=== PATIENT | female | born 1940 | race Caucasian/White ===

== ENCOUNTER 2021-11-25 11:58 | Inpatient (IN) | payer MEDICARE, SELFPAY ==
--- NOTE | ~2021-11-25 | CT_ITS ---
EXAMINATION: CT HEAD WITHOUT CONTRAST CLINICAL INFORMATION: Mental status change. Medical clearance. COMPARISON: None TECHNIQUE: Contiguous axial imaging was performed from the skull base to vertex without intravenous administration of contrast. This CT examination was performed using dose optimization techniques as appropriate, variously including the following: *Automated exposure control *Adjustment of mA and/or kV according to patient size (this includes techniques or standardized protocols for targeted exams where dose is matched to indication/reason for exam; i.e. extremities or head) *Use of iterative reconstruction technique DLP: 616 mGy-cm FINDINGS: There is no evidence of acute intracranial hemorrhage or territorial infarction. No abnormal mass effect or midline shift is appreciated. Anne-white differentiation is well preserved. No extra-axial fluid collections. The ventricular system and cortical sulci are prominent, consistent with age-appropriate volume loss. There are areas of low density in the periventricular and subcortical white matter, most consistent with sequelae of microvascular ischemic change. The osseous structures and soft tissues are normal. There are calcifications of the cavernous internal carotid arteries. The visualized paranasal sinuses and mastoid air cells are well aerated. Mild mucosal thickening of a few a few scattered ethmoidal air cells. CT/CT head/brain wo IV con IMPRESSION: Chronic microvascular ischemic changes with no CT evidence of acute intracranial abnormality.
--- NOTE | ~2021-11-25 | XR_ITS ---
EXAMINATION: XR CHEST CLINICAL INFORMATION: Medical clearance COMPARISON: None TECHNIQUE: Frontal view of the chest was obtained. FINDINGS: Lungs appear hyperinflated. Heart size is normal. No evidence of CHF. Pleural parenchymal scarring is present in both upper lobes. Coarse reticulonodular markings are seen bilaterally most prominent in the upper lobes. No focal consolidations are seen. No pleural effusions are seen. XR/XR chest 1V IMPRESSION: No acute intrathoracic disease. The chest radiograph is abnormal. There is probable COPD and possible interstitial disease. Unfortunately, no prior imaging is available for comparison.
[2021-11-25 13:09] VITALS: BP 144/82; PULSE 74; RESP 18; TEMP 36.7; O2SAT 97; BMI 17.8
--- NOTE | 2021-11-25 15:30 | ECG_ITS ---
Test Reason : MED CLEARANCE Blood Pressure : / mmHG Vent. Rate : 061 BPM Atrial Rate : 061 BPM P-R Int : 150 ms QRS Dur : 096 ms QT Int : 402 ms P-R-T Axes : 069 062 047 degrees QTc Int : 404 ms Normal sinus rhythm Possible Left atrial enlargement Left ventricular hypertrophy ( Sokolow-Vang , Romhilt-Cutler ) Nonspecific ST abnormality Abnormal ECG No previous ECGs available Referred By: Otoniel Yates Electronically Signed By:KAILEE ADAMS
--- NOTE | 2021-11-25 15:31 | ED_ITS ---
HPI - Psych General Chief Complaint: Psychiatric Symptoms Stated Complaint: Psych eval Time Seen by Provider: 11/25/21 15:29 Source: patient and family (Daughter, Mellissa) Mode of arrival: ambulatory Limitations: no limitations History of Present Illness HPI Narrative: 80-year-old female who presents emergency department for evaluation of severe depression. The patient states that she has been severely depressed for approximately 6 months. According to her daughter, the depression got worse after are the patient lost some of her friends. The patient had been taking Lexapro for her depression and anxiety and was a concerned that his medications stops working. This was continued in the patient was placed on Cymbalta which made the patient feel worse. The patient was started back on Lexapro proximally 1 month prior and her provider recently prescribed Abilify as well pain. The patient has been taking Xanax to help her sleep and help with her anxiety. The patient states that she has lost her appetite and has lost approximately 20 lb over the last several months. The patient had a workup for her loss of appetite which included an upper GI and colonoscopy without any clear cause. Patient then had a CT scan of the abdomen pelvis and an ultrasound on 10/05/2021 which revealed a left complex adnexal mass 5.8 x [address] Hendrix who was at [facility] however the patient has been to anxious in order to get a biopsy of this mass. Patient states that she has lost interest in things that she usually enjoys such as reading. She has had difficulty sleeping is had to taking Xanax at night to help her sleep. She states she wakes up she does not feel rested. The daughter states that patient is very fearful and they cannot leave her alone. The patient does have racing thoughts and she does think about hurting herself but states she is too afraid to actually hurt herself. The patient states that she came to [facility] for evaluation treatment of her depression since we have an inpatient geriatric psychiatric unit. Patient also states that she had COVID-19 approximately 11 days prior and her symptoms have resolved. complaint: feels depressed Onset (ago): month(s) (6) Duration: constant History of same: Yes Relieving factors: none Exacerbating factors: none Context: new medication(s) and significant life stressor Associated psychiatric symptoms: racing thoughts Associated symptoms: insomnia and other (Loss of appetite with 20 lb weight loss) Treatments prior to arrival: none Related Data Allergies Allergy/AdvReac Type Severity Reaction Status Date / Time amoxicillin Allergy Rash Verified 11/25/21 13:08 Review of Systems Review of Systems: Yes all other systems are reviewed and are negative [facility] Past Medical History [facility] Narrative: Past medical history: Depression, anxiety, left complex ovarian mass diagnosed 10/05/[address] scan. COVID-19 11/14/2021. Past surgical history: Skin cancer removal. Social history: Social History Social History Advance Directives: Yes Advance Directives Information Provided: No Advance Directives on File: No Physical Exam Vital Signs: Vital Signs: Last Vital Signs Temp 98.1 F 11/25/21 13:09 Pulse 74 11/25/21 13:09 Resp 18 11/25/21 13:09 BP 144/82 H 11/25/21 13:09 Pulse Ox 97 11/25/21 13:09 O2 Del Method 11/25/21 13:09 BMI result Body Mass Index 17.8 Course Course Course Narrative: 80-year-old female who presents emergency department for evaluation of severe depression x6 months triggered by the loss of several of her friends as well as medication changes. Patient's symptoms include insomnia, tired, not enjoying things that she usually enjoys, loss of appetite a 20 lb weight loss. The patient did have a medical workup for her weight loss and the workup did reveal a 5.8 x 4.0 cm complex left adnexal mass which, according to her daughter, the patient has not been able to go through a biopsy secondary to her anxiety and depression. Patient has also been taking Xanax at night and during the day to help with sleep and her anxiety. Patient is having racing thoughts and does have some suicidal thoughts but states that she would not act on them because she is too afraid. Patient's vital signs were normal. The patient's physical examination was unremarkable. I did order a CBC, CMP, COVID-19, CPK, drug screen, alcohol level, lipase, acetaminophen, salicylate, TSH with free T4 and urinalysis. Patient was ordered to get Xanax 0.25 mg orally. 1703: At the end of my shift, the patient's laboratory evaluation is pending, therefore I turned the patient's care over to my colleague, Dr. Awad [facility] - Psych Lab Data Labs: Lab Results 11/25/21 11/25/21 11/25/21 Range/Units 15:37 15:37 15:37 Urine Color Yellow Urine Appearance Clear Urine pH 6.5 (5.0-9.0) Ur Specific [place] <= 1.005 (1.005-1.025) Urine Protein Negative (Neg-Trace) mg/dL Urine Glucose (UA) Negative (Negative) mg/dL Urine Ketones Negative (Negative) mg/dL Urine Blood Negative (Negative) Urine Nitrite Negative (Negative) Ur Leukocyte Esterase Large (3+) H (Negative) Urine RBC 0-2 (0-2) /HPF Urine WBC 11-20 (0-5) /HPF Ur Squamous Epith Cells 0-2 (0-2) /HPF Urine Bacteria 4+ (None Seen) Hyaline Casts 0-2 (0-2) /LPF Urine Opiates Screen Not Detected (Not Detect) Urine Fentanyl Screen Not Detected (Not Detect) Ur Barbiturates Screen Not Detected (Not Detect) Ur Phencyclidine Scrn Not Detected (Not Detect) Ur Amphetamines Screen Not Detected (Not Detect) U Benzodiazepines Scrn POSITIVE H (Not Detect) Urine Cocaine Screen Not Detected (Not Detect) U Marijuana (THC) Screen Not Detected (Not Detect) COVID-19 (ALCIRA) Negative (Negative) COVID-19 Clin Com See Note Discharge Plan Discharge Clinical Impression: Depression, Anxiety, Abnormal weight loss, Insomnia, Adnexal mass Patient Disposition: Still a Patient
[2021-11-25 15:49] LABS: Appearance Urine Clear; Color Urine Yellow; Glucose Urine UA Negative (Negative); Leukocyte Esterase Urine Large (3+) (Negative); Nitrite Urine Negative (Negative); PH 6.5 (5.0-9.0); Specific Gravity - Urine <= 1.005 (1.005-1.025); Urine Blood Negative (Negative); Urine Ketones Negative (Negative); Urine Protein Negative (Neg-Trace)
[2021-11-25 16:00] LABS: Amphetamine Screen Urine Not Detected (Not Detect); Barbiturates, Urine Not Detected (Not Detect); Benzodiazepines Screen Urine POSITIVE (Not Detect); Cannabinoid Screen Urine Not Detected (Not Detect); Cocaine Screen Urine Not Detected (Not Detect); Fentanyl, urine Not Detected (Not Detect); Opiate Screen Urine Not Detected (Not Detect); Phencyclidine Screen Urine Not Detected (Not Detect)
[2021-11-25 16:02] LABS: COVID-19 Test Negative (Negative); IDNOW Serial# 16C4AD1C
[2021-11-25] MEDS: ALPRAZolam 0.25 MG TABLET PO ×2 (16:16→23:41)
[2021-11-25 16:28] LABS: Bacteria Urine 4+ (None Seen); Hyaline Casts Urine 0-2 /LPF (0-2); RBC Urine 0-2 /HPF (0-2); Squamous Epithelial Cell Urine 0-2 /HPF (0-2); UACC Culture Trigger YES
[2021-11-25 17:16] LABS: MANUAL DIFF FLAG NO
[2021-11-25 17:19] LABS: Basophils Percent Auto 0.5 % (0-2); Eosinophils Absolute Auto 0.1 X10*3/uL (0.0-0.4); Hematocrit 39.8 % (37.0-47.0); Hemoglobin 13.2 g/dl (12.0-16.0); Imm Gran Abs Auto 0.02 X10*3/uL (0.00-0.03); Imm Gran Pct Auto 0.3 % (0.0-0.4); Lymphocytes Absolute Auto 1.1 X10*3/uL (1.2-4.9); Lymphocytes Percent Auto 18.5 % (20-40); Mean Corpuscular HGB Conc 33.2 g/dl (31.0-35.0); Mean Corpuscular Hemoglobin 30.1 pg (27.0-33.0); Mean Corpuscular Volume 90.9 fL (80.0-98.0); Mean Platelet Volume 9.5 fL (9.4-12.3); Monocytes Absolute Auto 0.5 X10*3/uL (0.1-1.2); Monocytes Percent Auto 8.8 % (2-11); Neutrophils Absolute Auto 4.4 x10*3/uL (2.0-8.3); Neutrophils Percent Auto 70.9 % (45-73); Platelet Count 288 X10*3/uL (160-400); Red Blood Count 4.38 X10*6/uL (4.20-5.50); Red Cell Distribution Width 13.5 % (11.0-16.0); White Blood Count 6.2 X10*3/uL (4.8-10.8)
[2021-11-25 17:40] LABS: Acetaminophen LAB < 1 mcg/mL (<30); Alanine Aminotransferase 11 U/L (0-31); Alkaline Phosphatase 59 U/L (39-117); Anion Gap 16 (12-20); Aspartate Amino Transferase 18 U/L (5-31); Bilirubin Total 0.5 mg/dL (0.0-1.0); Blood Urea Nitrogen 11 mg/dL (9-16); Calcium 9.2 mg/dL (8.4-10.2); Carbon Dioxide 29 mmol/L (22-29); Chloride 101 mmol/L (96-108); Estimated Glomerular Filt Rate > 60; Ethanol < 10 mg/dL; Glucose Random 90 mg/dL (60-115); Lipase 32 U/L (8-78); Potassium 4.8 mmol/L (3.3-5.1); Salicylate < 5.0 mg/dL (15-30); Sodium 141 mmol/L (135-145); Total Protein 6.8 g/dL (6.5-8.0)
[2021-11-25 18:00] LABS: TSH reflex Free T4 1.03 uIU/mL (0.32-4.0)
--- NOTE | 2021-11-25 21:54 | PC.ADMIT ---
Patient is a 80 year old female. A & Ox4. Presented to S1 at 20:11 on a CV from [facility] ED POD. Upon arrival BP is elevated at 182/85 with a HR of 62. Patient presented after a recommendation from outpatient provider to be assessed by care team. For the last 6 months patient has been decompensating with increased anxiety, depression, and intrusive thoughts. Reported that she has been stable on lexapro for the last 14 years, however it is no longer effective. Patient reports a recent weight loss of about 20 pounds. Patient reports that she has been sleeping with 0.5 mg of xanax each night. Patient currently denies SI/HI/AH/VH. Reports feeling safe. Ambualtes independently with a steady gait. Patient denies acute complaints at this time.
[2021-11-25 22:02] VITALS: BP 182/85; PULSE 62; RESP 17; TEMP 36.7; O2SAT 98
[2021-11-26 06:00] VITALS: BP 141/71; PULSE 76; RESP 17; TEMP 37.1; O2SAT 95
[2021-11-26 07:00] VITALS: BMI 17.4
[2021-11-26] MEDS: ALPRAZolam 0.25 MG TABLET PO ×2 (09:46→14:12)
[2021-11-26 10:52] LABS: Alanine Aminotransferase 12 U/L (0-31); Alkaline Phosphatase 61 U/L (39-117); Anion Gap 15 (12-20); Aspartate Amino Transferase 18 U/L (5-31); Bilirubin Total 0.6 mg/dL (0.0-1.0); Blood Urea Nitrogen 8 mg/dL (9-16); Calcium 9.3 mg/dL (8.4-10.2); Carbon Dioxide 29 mmol/L (22-29); Chloride 100 mmol/L (96-108); Cholesterol 216 mg/dL; Estimated Glomerular Filt Rate > 60; Glucose Fasting 103 mg/dL (60-99); HDL Cholesterol 54 mg/dL; LDL Cholesterol Calculated 151 mg/dl; Potassium 4.2 mmol/L (3.3-5.1); Sodium 140 mmol/L (135-145); Triglycerides 59 mg/dL
[2021-11-26 11:37] LABS: Folate 12.2 ng/mL (> or = 4.0); Vitamin B12 < 146 pg/mL (200-900)
--- NOTE | 2021-11-26 12:14 | P.HPPS_ITS ---
[facility] Date of Service: 11/26/21 Chief Complaint: Severe Depression Sources of Information: patient interviewed, chart reviewed and crisis/core team assessment reviewed Additional Sources of Information: Regular prescriber Dr. 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 The patient carries a diagnosis of major depressive disorder for several years and she has been on Lexapro for more than 14 years with good results but in the last 6 months, after several losses, the of a friend and other psychosocial stressors, she reported an exacerbation of depressive symptoms elicited by depressed mood, anhedonia, lack of energy and neurovegetative symptoms such as weight loss and poor appetite, she lost 20 lb in the last 6 months and poor sleep. She denies psychotic symptoms, no evidence of mood lability or per your episodes of philip. The patient reported that initially her outpatient provider changed from Lexapro to Cymbalta and she got worse symptoms. She was admitted to the emergency room since her provider wanted to try ECT. During the interview, the patient was very scared about ECT I explained her that she does not need to be intubated for the procedure. There were no suicidal ideation at this moment and no acute safety concerns. Past Psychiatric History: Never admitted into the [facility], she has been followed outpatient services most of her life she was fairly well on Lexapro for more than 14 years. She had a bad reaction with Cymbalta with no efficacy in worsening of depression. Medical Evaluation Reviewed: Hospitalist Tricia Pending [facility] Family History: Most of her maternal aunts and mother probably had mood symptoms, mostly anxiety and depression. Social History: The patient is the youngest of 2 siblings, her milestones were achieved at expected patient she was raised by her parents. 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 She was , her a few years ago, and she had tree adult children. She has good social support. Substance History: Denies, she admits that she drinks 2 beers every night after dinner but no history of the way you or any other substance abuse. Trauma History: Denies Diagnostics Vital Signs (24Hr): Vital Signs - 24 hr 11/25/21 13:09 11/25/21 22:02 11/26/21 06:00 Temperature 98.1 F 98.0 F 98.7 F Pulse Rate 74 62 76 Respiratory Rate 18 17 17 Blood Pressure 144/82 H 182/85 H 141/71 H Pulse Oximetry 97 98 95 Oxygen Delivery Method Room Air Room Air Room Air BMI result Body Mass Index 17.8 Labs Results: 11/25/21 17:05 11/26/21 10:29 Labs: Laboratory Results - last 48 hr 11/25/21 11/25/21 11/25/21 15:37 15:37 15:37 WBC RBC Hgb Hct MCV MCH MCHC RDW Plt Count MPV Immature Gran % (Auto) Neut % (Auto) Lymph % (Auto) [place] % (Auto) Eos % (Auto) Baso % (Auto) Lymph # (Auto) [place] # (Auto) Eos # (Auto) Baso # (Auto) Abs Immat Gran (auto) Absolute Neuts (auto) Absolute Nucleated RBC Nucleated RBC % (auto) Sodium Potassium Chloride Carbon Dioxide Anion Gap BUN Creatinine Estim Creat Clear Calc Estimated GFR Random Glucose Fasting Glucose Calcium Total Bilirubin AST ALT Alkaline Phosphatase Total Creatine Kinase Total Protein Albumin Triglycerides Cholesterol LDL Cholesterol, Calc HDL Cholesterol Lipase Vitamin B12 Folate TSH Urine Color Yellow Urine Appearance Clear Urine pH 6.5 Ur Specific [place] <= 1.005 Urine Protein Negative Urine Glucose (UA) Negative Urine Ketones Negative Urine Blood Negative Urine Nitrite Negative Ur Leukocyte Esterase Large (3+) H Urine RBC 0-2 Urine WBC 11-20 Ur Squamous Epith Cells 0-2 Urine Bacteria 4+ Hyaline Casts 0-2 Salicylates Urine Opiates Screen Not Detected Urine Fentanyl Screen Not Detected Acetaminophen Ur Barbiturates Screen Not Detected Ur Phencyclidine Scrn Not Detected Ur Amphetamines Screen Not Detected U Benzodiazepines Scrn POSITIVE H Urine Cocaine Screen Not Detected U Marijuana (THC) Screen Not Detected Ethyl Alcohol COVID-19 (ALCIRA) Negative COVID-19 Clin Com See Note 11/25/21 11/25/21 11/25/21 17:05 17:05 17:05 WBC 6.2 RBC 4.38 Hgb 13.2 Hct 39.8 MCV 90.9 MCH 30.1 MCHC 33.2 RDW 13.5 Plt Count 288 MPV 9.5 Immature Gran % (Auto) 0.3 Neut % (Auto) 70.9 Lymph % (Auto) 18.5 L [place] % (Auto) 8.8 Eos % (Auto) 1.0 Baso % (Auto) 0.5 Lymph # (Auto) 1.1 L [place] # (Auto) 0.5 Eos # (Auto) 0.1 Baso # (Auto) 0.0 Abs Immat Gran (auto) 0.02 Absolute Neuts (auto) 4.4 Absolute Nucleated RBC 0.000 Nucleated RBC % (auto) 0.0 Sodium 141 Potassium 4.8 Chloride 101 Carbon Dioxide 29 Anion Gap 16 BUN 11 Creatinine 0.70 Estim Creat Clear Calc 53.0 Estimated GFR > 60 Random Glucose 90 Fasting Glucose Calcium 9.2 Total Bilirubin 0.5 AST 18 ALT 11 Alkaline Phosphatase 59 Total Creatine Kinase 51 Total Protein 6.8 Albumin 4.0 Triglycerides Cholesterol LDL Cholesterol, Calc HDL Cholesterol Lipase 32 Vitamin B12 Folate TSH 1.03 Urine Color Urine Appearance Urine pH Ur Specific [place] Urine Protein Urine Glucose (UA) Urine Ketones Urine Blood Urine Nitrite Ur Leukocyte Esterase Urine RBC Urine WBC Ur Squamous Epith Cells Urine Bacteria Hyaline Casts Salicylates < 5.0 L Urine Opiates Screen Urine Fentanyl Screen Acetaminophen < 1 Ur Barbiturates Screen Ur Phencyclidine Scrn Ur Amphetamines Screen U Benzodiazepines Scrn Urine Cocaine Screen U Marijuana (THC) Screen Ethyl Alcohol < 10 COVID-19 (ALCIRA) COVID-19 Clin Com 11/26/21 11/26/21 10:29 10:29 WBC RBC Hgb Hct MCV MCH MCHC RDW Plt Count MPV Immature Gran % (Auto) Neut % (Auto) Lymph % (Auto) [place] % (Auto) Eos % (Auto) Baso % (Auto) Lymph # (Auto) [place] # (Auto) Eos # (Auto) Baso # (Auto) Abs Immat Gran (auto) Absolute Neuts (auto) Absolute Nucleated RBC Nucleated RBC % (auto) Sodium 140 Potassium 4.2 Chloride 100 Carbon Dioxide 29 Anion Gap 15 BUN 8 L Creatinine 0.70 Estim Creat Clear Calc 53.0 Estimated GFR > 60 Random Glucose Fasting Glucose 103 H Calcium 9.3 Total Bilirubin 0.6 AST 18 ALT 12 Alkaline Phosphatase 61 Total Creatine Kinase Total Protein 7.0 Albumin 4.0 Triglycerides 59 Cholesterol 216 LDL Cholesterol, Calc 151 HDL Cholesterol 54 Lipase Vitamin B12 < 146 L Folate 12.2 TSH Urine Color Urine Appearance Urine pH Ur Specific [place] Urine Protein Urine Glucose (UA) Urine Ketones Urine Blood Urine Nitrite Ur Leukocyte Esterase Urine RBC Urine WBC Ur Squamous Epith Cells Urine Bacteria Hyaline Casts Salicylates Urine Opiates Screen Urine Fentanyl Screen Acetaminophen Ur Barbiturates Screen Ur Phencyclidine Scrn Ur Amphetamines Screen U Benzodiazepines Scrn Urine Cocaine Screen U Marijuana (THC) Screen Ethyl Alcohol COVID-19 (ALCIRA) COVID-19 Clin Com Imaging Radiology Impressions: ITS Impressions Chest X-Ray 11/25/21 17:49 IMPRESSION: No acute intrathoracic disease. The chest radiograph is abnormal. There is probable COPD and possible interstitial disease. Unfortunately, no prior imaging is available for comparison. Head CT 11/25/21 18:02 IMPRESSION: Chronic microvascular ischemic changes with no CT evidence of acute intracranial abnormality. Meds/Allergies Meds Home Medications Medication Instructions Recorded Confirmed Type Xanax 0.125 mg PO NEEDED PRN Insomnia 11/26/21 11/26/21 History Xanax 0.25 mg PO BEDTIME insomnia 11/26/21 11/26/21 History Allergies Allergies Allergy/AdvReac Type Severity Reaction Status Date / Time amoxicillin Allergy Rash Verified 11/25/21 13:08 Mental Status Exam Mental Status Exam Patient Appearance: Well Grooomed Patient Orientation: Person, Place, Time and Situation Level of Consciousness: Awake Patient Behavior: Cooperative Mood Description: Calm Affect Description: Constricted Patient Cognition Impaired: No Ability to Follow Directions: Good Speech Pattern: Clear Hallucinations: None Delusions: Not Present Thought Process: Intact Thought Content: positive for Intact and positive for Circumstantial Judgement: Fair Assessment & Plan Assessment & Plan (1) Major depressive disorder: Status: Acute Code(s): F32.9 - Major depressive disorder, single episode, unspecified Plan The patient is an elderly female with a long history of depression who was highly functional but in the last 6 months relapsed on depressive symptoms with neurovegetative symptoms. The patient was transferred to this facility for the possibility of ECT treatment. Plan 1. Gather collateral information. 2. Continue Lexapro 20 mg p.o. daily and Xanax. 3. Offered ECT and psychoeducation. Patient educated on: diagnosis, ECT and therapeutic strategies Informed Consent: understands Reason for continued inpatient stay Substantial Risk for: inability to function, rapid decompensation and med/psych decompensation
[2021-11-26 13:54] VITALS: BMI 17.8
--- NOTE | 2021-11-26 13:57 | MHC.CLN ---
RE: CONSULT PT IS UNDER WT FOR HT PT WITH 15% SIGNIFICANT WT LOSS X 6 MONTHS R/T SEVERE DEPRESSION SX AND DECOMPENSATION DIET RX: REGULAR-APPROPRIATE RECOMMEND ADDING ENSURE BID TO INCREASE KCALS SUPP TO PROVIDE 700KCALS, 40G PROTEIN MONITOR PO INTAKE CLOSELY AND WEEKLY WEIGHTS SEE ALSO FULL CLINICAL NUTRITION ASSESSMENT
[2021-11-26] MEDS: Escitalopram Oxalate 20 MG TABLET PO (14:12)
--- NOTE | 2021-11-26 15:40 | P.CONIM_ITS ---
History of Present Illness Data of Consult Service Date: 11/26/21 Primary Care Provider: Rizwana Tripp MD HPI Reason for consult: Depression A 80 years old lady with PMH of GERD, anxiety, depression who presents to the hospital for Anusha psych admission for measures depression and anorexia. The patient reports the her depression has been controlled until 6 months ago with multiple stressors arising like of a friend and concerns over possible ovarian cancer among others. She reports that she has been losing weight steadily with no appetite. Denies any fever, chills, chest pain, palpitation, shortness of breath, nausea or vomiting or change in bowel habit. Upon evaluation at [facility] CT scan and ultrasound of the pelvic area were consistent with 5 x 6 x 3 left adnexal mass that was evaluated by gynecology oncologist. Surgery was suggested. Hospitalist team were asked to evaluate the patient for clearance of ECT procedure. Review of Systems Review of Systems: No fever, chills or weakness No chest pain, palpitation No shortness of breath or coughing Decreased appetite, No abdominal pain, nausea or vomiting No urinary symptoms No any rash or wounds PMFSH Medical History (Updated 11/26/21 @ 15:40 by Laney Gorman MD) Anxiety Insomnia Major depressive disorder Social History Household Members: None Housing: Apartment Do you presently have visiting nurse or other home services: No Patient Tobacco Use Status: Never used Tobacco Use of substances other than those prescribed or required for medical reasons: No Currently Displaying Signs/Symptoms of Drug Intoxication Withdrawal: No Have you been hit, kicked, punched, or otherwise hurt by someone within the past year? If so, by whom?: No Do you feel safe in your current relationship?: No Current Relationship Is there a partner from a previous relationship who is making you feel unsafe now?: No Are you made to feel afraid or neglected: No Advance Directives: Yes Advance Directives Information Provided: No Advance Directives on File: No Healthcare Proxy: No Guardian: No Do you have thoughts of harming others: None Do you have a plan to hurt others: No Plan Recently lost weight without trying: Yes How much weight loss: 14-23 pounds Eating poorly because of decreased appetite: Yes Nutrition screen score: 5 Nutrition Risks: Anorexia Patient : No : No Poor oral hygiene: No Meds Allergies Allergy/AdvReac Type Severity Reaction Status Date / Time amoxicillin Allergy Rash Verified 11/25/21 13:08 Active Medications: Current Medications Acetaminophen (Acetaminophen 325 Mg Tablet) 650 mg PO Q6H PRN PRN Reason: Headache/Pain Mild Scale (1-3) Al Hydroxide/Mg Hydroxide (Magnesium Hydrox/Alum Hydrox 30 Ml Oral.Susp) 30 ml PO Q6H PRN PRN Reason: Heartburn/Nausea Alprazolam (Alprazolam 0.25 Mg Tablet) 0.125 mg PO Q6H PRN PRN Reason: Anxiety Alprazolam (Alprazolam 0.5 Mg Tablet) 0.5 mg PO BEDTIME ROBBY Alprazolam (Alprazolam 0.25 Mg Tablet) 0.25 mg PO BID@0830,1330 [facility] Last Admin: 11/26/21 14:12 Dose: 0.25 mg Escitalopram Oxalate (Escitalopram Oxalate 20 Mg Tablet) 20 mg PO DAILY ROBBY Hydroxyzine HCl (Hydroxyzine Hcl 25 Mg Tablet) 25 mg PO Q6H PRN PRN Reason: Anxiety Magnesium Hydroxide (Milk Of Magnesia 30 Ml Oral.Susp) 30 ml PO DAILY PRN PRN Reason: Constipation Trazodone HCl (Trazodone Hcl 50 Mg Tablet) 50 mg PO BEDTIME PRN PRN Reason: Insomnia Home Medications Medication Instructions Recorded Confirmed Last Taken Type Xanax 0.125 mg PO NEEDED PRN Insomnia 11/26/21 11/26/21 Unknown History Xanax 0.25 mg PO BEDTIME insomnia 11/26/21 11/26/21 11/25/21 History 0.25 mg Physical Exam Vital Signs and Narrative: Vital Signs: Last Vital Signs Temp 98.7 F 11/26/21 06:00 Pulse 76 11/26/21 06:00 Resp 17 11/26/21 06:00 BP 141/71 H 11/26/21 06:00 Pulse Ox 95 11/26/21 06:00 O2 Del Method 11/26/21 06:00 BMI result Body Mass Index 17.8 Const: Other: Constitutional : Alert, interactive, not in distress Neck : Normal inspection, Supple Cardiovascular : RRR, no JVP, no lower extremity edema Respiratory : fair bilateral air entry, no crackles, wheezes or rhonchi Gastrointestinal: soft, lax, Normal bowel sounds, Non tender Skin : Warm, Dry Neurological : Alert & oriented x3, No focal deficit , CN 2-12 within normal Results Labs CBC and Chem 7: 11/25/21 17:05 11/26/21 10:29 Labs: Laboratory Results - last 24 hr 11/25/21 11/25/21 11/25/21 15:37 15:37 15:37 MCV MCH MCHC RDW Plt Count MPV Immature Gran % (Auto) Neut % (Auto) Lymph % (Auto) [place] % (Auto) Eos % (Auto) Baso % (Auto) Lymph # (Auto) [place] # (Auto) Eos # (Auto) Baso # (Auto) Abs Immat Gran (auto) Absolute Neuts (auto) Absolute Nucleated RBC Nucleated RBC % (auto) Anion Gap Estim Creat Clear Calc Estimated GFR Random Glucose Fasting Glucose Calcium Total Bilirubin AST ALT Alkaline Phosphatase Total Creatine Kinase Total Protein Albumin Triglycerides Cholesterol LDL Cholesterol, Calc HDL Cholesterol Lipase Vitamin B12 Folate TSH Urine Color Yellow Urine Appearance Clear Urine pH 6.5 Ur Specific [place] <= 1.005 Urine Protein Negative Urine Glucose (UA) Negative Urine Ketones Negative Urine Blood Negative Urine Nitrite Negative Ur Leukocyte Esterase Large (3+) H Urine RBC 0-2 Urine WBC 11-20 Ur Squamous Epith Cells 0-2 Urine Bacteria 4+ Hyaline Casts 0-2 Salicylates Urine Opiates Screen Not Detected Urine Fentanyl Screen Not Detected Acetaminophen Ur Barbiturates Screen Not Detected Ur Phencyclidine Scrn Not Detected Ur Amphetamines Screen Not Detected U Benzodiazepines Scrn POSITIVE H Urine Cocaine Screen Not Detected U Marijuana (THC) Screen Not Detected Ethyl Alcohol COVID-19 ([facility]) Negative COVID-19 Clin Com See Note 11/25/21 11/25/21 11/25/21 17:05 17:05 17:05 MCV 90.9 MCH 30.1 MCHC 33.2 RDW 13.5 Plt Count 288 MPV 9.5 Immature Gran % (Auto) 0.3 Neut % (Auto) 70.9 Lymph % (Auto) 18.5 L [place] % (Auto) 8.8 Eos % (Auto) 1.0 Baso % (Auto) 0.5 Lymph # (Auto) 1.1 L [place] # (Auto) 0.5 Eos # (Auto) 0.1 Baso # (Auto) 0.0 Abs Immat Gran (auto) 0.02 Absolute Neuts (auto) 4.4 Absolute Nucleated RBC 0.000 Nucleated RBC % (auto) 0.0 Anion Gap 16 Estim Creat Clear Calc 53.0 Estimated GFR > 60 Random Glucose 90 Fasting Glucose Calcium 9.2 Total Bilirubin 0.5 AST 18 ALT 11 Alkaline Phosphatase 59 Total Creatine Kinase 51 Total Protein 6.8 Albumin 4.0 Triglycerides Cholesterol LDL Cholesterol, Calc HDL Cholesterol Lipase 32 Vitamin B12 Folate TSH 1.03 Urine Color Urine Appearance Urine pH Ur Specific [place] Urine Protein Urine Glucose (UA) Urine Ketones Urine Blood Urine Nitrite Ur Leukocyte Esterase Urine RBC Urine WBC Ur Squamous Epith Cells Urine Bacteria Hyaline Casts Salicylates < 5.0 L Urine Opiates Screen Urine Fentanyl Screen Acetaminophen < 1 Ur Barbiturates Screen Ur Phencyclidine Scrn Ur Amphetamines Screen U Benzodiazepines Scrn Urine Cocaine Screen U Marijuana (THC) Screen Ethyl Alcohol < 10 COVID-19 ([facility]) COVID-19 [employer] 11/26/21 11/26/21 10:29 10:29 MCV MCH MCHC RDW Plt Count MPV Immature Gran % (Auto) Neut % (Auto) Lymph % (Auto) [place] % (Auto) Eos % (Auto) Baso % (Auto) Lymph # (Auto) [place] # (Auto) Eos # (Auto) Baso # (Auto) Abs Immat Gran (auto) Absolute Neuts (auto) Absolute Nucleated RBC Nucleated RBC % (auto) Anion Gap 15 Estim Creat Clear Calc 53.0 Estimated GFR > 60 Random Glucose Fasting Glucose 103 H Calcium 9.3 Total Bilirubin 0.6 AST 18 ALT 12 Alkaline Phosphatase 61 Total Creatine Kinase Total Protein 7.0 Albumin 4.0 Triglycerides 59 Cholesterol 216 LDL Cholesterol, Calc 151 HDL Cholesterol 54 Lipase Vitamin B12 < 146 L Folate 12.2 TSH Urine Color Urine Appearance Urine pH Ur Specific [place] Urine Protein Urine Glucose (UA) Urine Ketones Urine Blood Urine Nitrite Ur Leukocyte Esterase Urine RBC Urine WBC Ur Squamous Epith Cells Urine Bacteria Hyaline Casts Salicylates Urine Opiates Screen Urine Fentanyl Screen Acetaminophen Ur Barbiturates Screen Ur Phencyclidine Scrn Ur Amphetamines Screen U Benzodiazepines Scrn Urine Cocaine Screen U Marijuana (THC) Screen Ethyl Alcohol COVID-19 ([facility]) COVID-19 Clin Com Imaging Radiologist's Impressions: Impressions Chest X-Ray 11/25/21 17:49 IMPRESSION: No acute intrathoracic disease. The chest radiograph is abnormal. There is probable COPD and possible interstitial disease. Unfortunately, no prior imaging is available for comparison. Head CT 11/25/21 18:02 IMPRESSION: Chronic microvascular ischemic changes with no CT evidence of acute intracranial abnormality. Assessment and Plan (1) Adnexal mass: Status: Acute (2) Abnormal weight loss: Status: Acute (3) Major depressive disorder: Status: Acute Plan A 80 years old lady with PMH of GERD, anxiety, depression who presents to the hospital for Anusha psych admission for measures depression and anorexia. Abnormal weight loss Likely secondary to major depressive disorder Evidence of adnexal mass with possible malignancy could be contributing to anorexia Treatment per Psychiatry team EKG was reviewed, no abnormality Patient had recent echo with EF of 55-60% Patient has no contraindications for ECT procedure as directed by Psychiatry team Adnexal mass Reported on 10/05/2021 on ultrasound Patient had discussion with gynecology Oncology team and a seeking a 2nd opinion No additional tests inpatient Thank you for the consult, please contact hospitalist team for any further questions.
[2021-11-26 18:00] VITALS: BP 157/74; PULSE 76; RESP 18; TEMP 36.4; O2SAT 96
[2021-11-26] MEDS: Famotidine 20 MG TABLET PO (20:04)
[2021-11-26] MEDS: ALPRAZolam 0.5 MG TABLET PO (21:39)
[2021-11-27 06:00] VITALS: BP 128/63; PULSE 72; RESP 17; TEMP 36.7; O2SAT 95
[2021-11-27] MEDS: Famotidine 20 MG TABLET PO ×2 (08:23→18:08)
[2021-11-27] MEDS: Escitalopram Oxalate 20 MG TABLET PO (08:23)
[2021-11-27] MEDS: ALPRAZolam 0.25 MG TABLET PO ×2 (08:23→15:58)
--- NOTE | 2021-11-27 10:24 | HO.PSYCHPN ---
Subjective Subjective Date of Service: 11/27/21 Reason For Visit: Severe Depression Subjective Notes: Conditional Voluntary Interim History: The nursing staff reported the patient slept well she denies pain. The staff has reported that the patient and the family has been anxious, the relatives have expectations such as intense psychotherapy and one-to-one observation. Today we have an family meeting and will discuss treatment. The recent of the admission was to do ECT as per her outpatient provider, psychotic occasionally into this treatment will be provided. Mental Status Exam Mental Status Exam Patient Appearance: Well Grooomed Patient Orientation: Person and Situation Level of Consciousness: Awake Patient Behavior: Cooperative Mood Description: Constricted Affect Description: Calm Patient Cognition Impaired: Yes Ability to Follow Directions: Good Speech Pattern: Clear Hallucinations: None Delusions: Not Present Thought Process: Distracted Thought Content: positive for Circumstantial Judgement: Fair Diagnostics Vital Signs (24Hr): Vital Signs - 24 hr 11/26/21 18:00 Temperature 97.6 F Pulse Rate 76 Respiratory Rate 18 Blood Pressure 157/74 H Pulse Oximetry 96 Oxygen Delivery Method Room Air BMI result Body Mass Index 17.8 Labs Results: 11/25/21 17:05 11/26/21 10:29 Labs: Laboratory Results - last 48 hr 11/25/21 11/25/21 11/25/21 15:37 15:37 15:37 WBC RBC Hgb Hct MCV MCH MCHC RDW Plt Count MPV Immature Gran % (Auto) Neut % (Auto) Lymph % (Auto) [place] % (Auto) Eos % (Auto) Baso % (Auto) Lymph # (Auto) [place] # (Auto) Eos # (Auto) Baso # (Auto) Abs Immat Gran (auto) Absolute Neuts (auto) Absolute Nucleated RBC Nucleated RBC % (auto) Sodium Potassium Chloride Carbon Dioxide Anion Gap BUN Creatinine Estim Creat Clear Calc Estimated GFR Random Glucose Fasting Glucose Calcium Total Bilirubin AST ALT Alkaline Phosphatase Total Creatine Kinase Total Protein Albumin Triglycerides Cholesterol LDL Cholesterol, Calc HDL Cholesterol Lipase Vitamin B12 Folate TSH Urine Color Yellow Urine Appearance Clear Urine pH 6.5 Ur Specific [place] <= 1.005 Urine Protein Negative Urine Glucose (UA) Negative Urine Ketones Negative Urine Blood Negative Urine Nitrite Negative Ur Leukocyte Esterase Large (3+) H Urine RBC 0-2 Urine WBC 11-20 Ur Squamous Epith Cells 0-2 Urine Bacteria 4+ Hyaline Casts 0-2 Salicylates Urine Opiates Screen Not Detected Urine Fentanyl Screen Not Detected Acetaminophen Ur Barbiturates Screen Not Detected Ur Phencyclidine Scrn Not Detected Ur Amphetamines Screen Not Detected U Benzodiazepines Scrn POSITIVE H Urine Cocaine Screen Not Detected U Marijuana (THC) Screen Not Detected Ethyl Alcohol COVID-19 ([facility]IR[facility]) Negative COVID-19 Clin Com See Note 11/25/21 11/25/21 11/25/21 17:05 17:05 17:05 WBC 6.2 RBC 4.38 Hgb 13.2 Hct 39.8 MCV 90.9 MCH 30.1 MCHC 33.2 RDW 13.5 Plt Count 288 MPV 9.5 Immature Gran % (Auto) 0.3 Neut % (Auto) 70.9 Lymph % (Auto) 18.5 L [place] % (Auto) 8.8 Eos % (Auto) 1.0 Baso % (Auto) 0.5 Lymph # (Auto) 1.1 L [place] # (Auto) 0.5 Eos # (Auto) 0.1 Baso # (Auto) 0.0 Abs Immat Gran (auto) 0.02 Absolute Neuts (auto) 4.4 Absolute Nucleated RBC 0.000 Nucleated RBC % (auto) 0.0 Sodium 141 Potassium 4.8 Chloride 101 Carbon Dioxide 29 Anion Gap 16 BUN 11 Creatinine 0.70 Estim Creat Clear Calc 53.0 Estimated GFR > 60 Random Glucose 90 Fasting Glucose Calcium 9.2 Total Bilirubin 0.5 AST 18 ALT 11 Alkaline Phosphatase 59 Total Creatine Kinase 51 Total Protein 6.8 Albumin 4.0 Triglycerides Cholesterol LDL Cholesterol, Calc HDL Cholesterol Lipase 32 Vitamin B12 Folate TSH 1.03 Urine Color Urine Appearance Urine pH Ur Specific [place] Urine Protein Urine Glucose (UA) Urine Ketones Urine Blood Urine Nitrite Ur Leukocyte Esterase Urine RBC Urine WBC Ur Squamous Epith Cells Urine Bacteria Hyaline Casts Salicylates < 5.0 L Urine Opiates Screen Urine Fentanyl Screen Acetaminophen < 1 Ur Barbiturates Screen Ur Phencyclidine Scrn Ur Amphetamines Screen U Benzodiazepines Scrn Urine Cocaine Screen U Marijuana (THC) Screen Ethyl Alcohol < 10 COVID-19 ([facility]) COVID-19 Clin Com 11/26/21 11/26/21 10:29 10:29 WBC RBC Hgb Hct MCV MCH MCHC RDW Plt Count MPV Immature Gran % (Auto) Neut % (Auto) Lymph % (Auto) [place] % (Auto) Eos % (Auto) Baso % (Auto) Lymph # (Auto) [place] # (Auto) Eos # (Auto) Baso # (Auto) Abs Immat Gran (auto) Absolute Neuts (auto) Absolute Nucleated RBC Nucleated RBC % (auto) Sodium 140 Potassium 4.2 Chloride 100 Carbon Dioxide 29 Anion Gap 15 BUN 8 L Creatinine 0.70 Estim Creat Clear Calc 53.0 Estimated GFR > 60 Random Glucose Fasting Glucose 103 H Calcium 9.3 Total Bilirubin 0.6 AST 18 ALT 12 Alkaline Phosphatase 61 Total Creatine Kinase Total Protein 7.0 Albumin 4.0 Triglycerides 59 Cholesterol 216 LDL Cholesterol, Calc 151 HDL Cholesterol 54 Lipase Vitamin B12 < 146 L Folate 12.2 TSH Urine Color Urine Appearance Urine pH Ur Specific [place] Urine Protein Urine Glucose (UA) Urine Ketones Urine Blood Urine Nitrite Ur Leukocyte Esterase Urine RBC Urine WBC Ur Squamous Epith Cells Urine Bacteria Hyaline Casts Salicylates Urine Opiates Screen Urine Fentanyl Screen Acetaminophen Ur Barbiturates Screen Ur Phencyclidine Scrn Ur Amphetamines Screen U Benzodiazepines Scrn Urine Cocaine Screen U Marijuana (THC) Screen Ethyl Alcohol COVID-19 ([facility]) COVID-19 Clin Com Imaging Radiology Impressions: ITS Impressions Chest X-Ray 11/25/21 17:49 IMPRESSION: No acute intrathoracic disease. The chest radiograph is abnormal. There is probable COPD and possible interstitial disease. Unfortunately, no prior imaging is available for comparison. Head CT 11/25/21 18:02 IMPRESSION: Chronic microvascular ischemic changes with no CT evidence of acute intracranial abnormality. Medications Medications Current Medications Acetaminophen (Acetaminophen 325 Mg Tablet) 650 mg PO Q6H PRN PRN Reason: Headache/Pain Mild Scale (1-3) Al Hydroxide/Mg Hydroxide (Magnesium Hydrox/Alum Hydrox 30 Ml Oral.Susp) 30 ml PO Q6H PRN PRN Reason: Heartburn/Nausea Alprazolam (Alprazolam 0.25 Mg Tablet) 0.125 mg PO Q6H PRN PRN Reason: Anxiety Alprazolam (Alprazolam 0.5 Mg Tablet) 0.5 mg PO BEDTIME [facility] Last Admin: 11/26/21 21:39 Dose: 0.5 mg Alprazolam (Alprazolam 0.25 Mg Tablet) 0.25 mg PO BID@0830,1330 [facility] Last Admin: 11/27/21 08:23 Dose: 0.25 mg Escitalopram Oxalate (Escitalopram Oxalate 20 Mg Tablet) 20 mg PO DAILY [facility] Last Admin: 11/27/21 08:23 Dose: 20 mg Famotidine (Famotidine 20 Mg Tablet) 20 mg PO BID [facility] Last Admin: 11/27/21 08:23 Dose: 20 mg Hydroxyzine HCl (Hydroxyzine Hcl 25 Mg Tablet) 25 mg PO Q6H PRN PRN Reason: Anxiety Magnesium Hydroxide (Milk Of Magnesia 30 Ml Oral.Susp) 30 ml PO DAILY PRN PRN Reason: Constipation Trazodone HCl (Trazodone Hcl 50 Mg Tablet) 50 mg PO BEDTIME PRN PRN Reason: Insomnia Allergies Allergies Allergy/AdvReac Type Severity Reaction Status Date / Time amoxicillin Allergy Rash Verified 11/25/21 13:08 Assessment & Plan Assessment & Plan (1) Adnexal mass: Status: Acute Code(s): N94.89 - Other specified conditions associated with female genital organs and menstrual cycle (2) Abnormal weight loss: Status: Acute Code(s): R63.4 - Abnormal weight loss (3) Major depressive disorder: Status: Acute Code(s): F32.9 - Major depressive disorder, single episode, unspecified Plan A 80 years old lady with PMH of GERD, anxiety, depression who presents to the hospital for Anusha psych admission for measures depression and anorexia. Abnormal weight loss Likely secondary to major depressive disorder Evidence of adnexal mass with possible malignancy could be contributing to anorexia Treatment per Psychiatry team EKG was reviewed, no abnormality Patient had recent echo with EF of 55-60% Patient has no contraindications for ECT procedure as directed by Psychiatry team Adnexal mass Reported on 10/05/2021 on ultrasound Patient had discussion with gynecology Oncology team and a seeking a 2nd opinion No additional tests inpatient Thank you for the consult, please contact hospitalist team for any further questions. I spent __20____ minutes with the patient and/or on the patient floor today, greater than?50% of which was spent counseling/coordinating care. Patient educated on: diagnosis, ECT and therapeutic strategies Informed Consent: understands Reason for contiued inpatient stay Substantial Risk for: inability to function, rapid decompensation and med/psych decompensation
--- NOTE | 2021-11-27 14:41 | MHC.CLN ---
F/U VISITED WITH PATIENT WHILE EATING LUNCH. REPORTS ABOUT 30# WEIGHT LOSS X ONE YEAR, WITH MAJORITY OF WEIGHT LOSS IN PAST 6 MONTHS. APPEARS THIN AND STATES THAT SHE DOES NOT USUALLY EAT A LOT. FAMILY BROUGHT SUPPLY OF ENSURE MOCHA FLAVOR. USUALLY TAKES ONE PER DAY. PATIENT TRIED ENSURE CLEAR AND LIKED. WILL SEND ENSURE CLEAR BID. PROVIDES 480 KCALS, 16 G PROTEIN.
[2021-11-27 18:00] VITALS: BP 136/65; PULSE 94; RESP 17; O2SAT 98
[2021-11-27] MEDS: ALPRAZolam 0.5 MG TABLET PO (22:05)
[2021-11-27 22:40] VITALS: BP 136/65; PULSE 94; RESP 16; O2SAT 98
[2021-11-28 08:00] VITALS: BP 121/58; PULSE 72; RESP 16; TEMP 36.9; O2SAT 96
[2021-11-28] MEDS: Famotidine 20 MG TABLET PO (08:18)
[2021-11-28] MEDS: ALPRAZolam 0.25 MG TABLET PO ×2 (09:20→15:03)
[2021-11-28] MEDS: Escitalopram Oxalate 20 MG TABLET PO (09:20)
--- NOTE | 2021-11-28 11:55 | P.PNPSI_ITS ---
Subjective Subjective Date of Service: 11/28/21 Reason For Visit: Severe Depression with marked anxiety Subjective Notes: Conditional Voluntary Interim History: Patient seen case reviewed with patient chart reviewed. Patient referred for ECT consideration by Dr. Gloria mena patient's outpatient psychiatrist. Patient had history of good response to Lexapro for many years eventually this became less effective. Patient has been increasingly depressed anxious feeling quite overwhelmed by issues related to medication quite obsessional patient convinced she developed colitis secondary to Cymbalta. She is scheduled for ECT Medication Compliance: Yes Mental Status Exam Mental Status Exam Patient Appearance: Well Grooomed Patient Orientation: Person and Situation Level of Consciousness: Awake Patient Behavior: Cooperative Mood Description: Constricted and Apprehensive Affect Description: Apprehensive Patient Cognition Impaired: No Ability to Follow Directions: Good Speech Pattern: Clear Hallucinations: None Delusions: Not Present Thought Process: Distracted and Rumination Thought Content: positive for Circumstantial, negative for Suicidal Ideation or negative for Homicidal Ideation Depressive Symptoms: Increased Anxiety, Increased Irritability and Hopelessness Judgement: Fair Diagnostics Vital Signs (24Hr): Vital Signs - 24 hr 11/27/21 18:00 11/27/21 22:40 Pulse Rate 94 94 Respiratory Rate 17 16 Blood Pressure 136/65 136/65 Pulse Oximetry 98 98 Oxygen Delivery Method Room Air Room Air BMI result Body Mass Index 17.8 Labs Results: 11/25/21 17:05 11/26/21 10:29 Imaging Radiology Impressions: ITS Impressions Chest X-Ray 11/25/21 17:49 IMPRESSION: No acute intrathoracic disease. The chest radiograph is abnormal. There is probable COPD and possible interstitial disease. Unfortunately, no prior imaging is available for comparison. Head CT 11/25/21 18:02 IMPRESSION: Chronic microvascular ischemic changes with no CT evidence of acute intracranial abnormality. Medications Medications Current Medications Acetaminophen (Acetaminophen 325 Mg Tablet) 650 mg PO Q6H PRN PRN Reason: Headache/Pain Mild Scale (1-3) Al Hydroxide/Mg Hydroxide (Magnesium Hydrox/Alum Hydrox 30 Ml Oral.Susp) 30 ml PO Q6H PRN PRN Reason: Heartburn/Nausea Alprazolam (Alprazolam 0.25 Mg Tablet) 0.125 mg PO Q6H PRN PRN Reason: Anxiety Alprazolam (Alprazolam 0.5 Mg Tablet) 0.5 mg PO BEDTIME ROBBY Last Admin: 11/27/21 22:05 Dose: 0.5 mg Alprazolam (Alprazolam 0.25 Mg Tablet) 0.25 mg PO BID@0830,1330 [facility] Last Admin: 11/28/21 09:20 Dose: 0.25 mg Escitalopram Oxalate (Escitalopram Oxalate 20 Mg Tablet) 20 mg PO DAILY [facility] Last Admin: 11/28/21 09:20 Dose: 20 mg Famotidine (Famotidine 20 Mg Tablet) 20 mg PO BID [facility] Last Admin: 11/28/21 08:18 Dose: 20 mg Hydroxyzine HCl (Hydroxyzine Hcl 25 Mg Tablet) 25 mg PO Q6H PRN PRN Reason: Anxiety Magnesium Hydroxide (Milk Of Magnesia 30 Ml Oral.Susp) 30 ml PO DAILY PRN PRN Reason: Constipation Trazodone HCl (Trazodone Hcl 50 Mg Tablet) 50 mg PO BEDTIME PRN PRN Reason: Insomnia Allergies Allergies Allergy/AdvReac Type Severity Reaction Status Date / Time amoxicillin Allergy Rash Verified 11/25/21 13:08 Assessment & Plan Assessment & Plan (1) Adnexal mass: Status: Acute Code(s): N94.89 - Other specified conditions associated with female genital organs and menstrual cycle (2) Abnormal weight loss: Status: Acute Code(s): R63.4 - Abnormal weight loss (3) Major depressive disorder: Status: Acute Code(s): F32.9 - Major depressive disorder, single episode, unspecified Assessment and Plan: Patient with history of generalized anxiety worsening depression particularly over the past number of weeks. Has left adnexal mass that will eventually need surgery. Reviewed treatment options reviewed issues related to ECT procedure Plan A 80 years old lady with PMH of GERD, anxiety, depression who presents to the hospital for Anusha psych admission for measures depression and anorexia. Abnormal weight loss Likely secondary to major depressive disorder Evidence of adnexal mass with possible malignancy could be contributing to anorexia Treatment per Psychiatry team EKG was reviewed, no abnormality Patient had recent echo with EF of 55-60% Patient has no contraindications for ECT procedure as directed by Psychiatry team Adnexal mass Reported on 10/05/2021 on ultrasound Patient had discussion with gynecology Oncology team and a seeking a 2nd opinion No additional tests inpatient Thank you for the consult, please contact hospitalist team for any further questions. I spent minutes with the patient and/or on the patient floor today, greater than?50% of which was spent counseling/coordinating care. Patient educated on: diagnosis, medication risk/benefits and ECT Reason for contiued inpatient stay Substantial Risk for: inability to function and rapid decompensation
[2021-11-28 18:00] VITALS: BP 144/67; PULSE 60; RESP 17; TEMP 36.8; O2SAT 96
[2021-11-28] MEDS: ALPRAZolam 0.5 MG TABLET PO (21:32)
[2021-11-29 08:00] VITALS: BP 121/68; PULSE 82; RESP 16; TEMP 36.4; O2SAT 93
[2021-11-29] MEDS: Famotidine 20 MG TABLET PO ×2 (08:05→17:52)
[2021-11-29] MEDS: Escitalopram Oxalate 20 MG TABLET PO (08:48)
[2021-11-29] MEDS: ALPRAZolam 0.25 MG TABLET PO ×2 (08:48→15:18)
--- NOTE | 2021-11-29 16:03 | HO.PSYCHPN ---
Subjective Subjective Date of Service: 11/29/21 Reason For Visit: Severe Depression with marked anxiety Subjective Notes: Conditional Voluntary Interim History: Patient has depressed anxious and ruminating. Needs much support in Education regarding ECT. Spoke with Dr. Benny dinh and re elucidated reasons while patient would benefit from ECT at this time. This includes acute medical issues that she cannot manage at this time to her depression weight loss increasing hopelessness helplessness despondency and inability to manage outpatient medication trials in adequate manner. Medication Compliance: Yes Review of Systems Medical Review of Systems: unchanged Mental Status Exam Mental Status Exam Patient Appearance: Well Grooomed Patient Orientation: Person and Situation Level of Consciousness: Awake Patient Behavior: Cooperative Mood Description: Constricted and Apprehensive Affect Description: Apprehensive Patient Cognition Impaired: No Ability to Follow Directions: Good Speech Pattern: Clear Hallucinations: None Delusions: Not Present Thought Process: Distracted and Rumination Thought Content: positive for Circumstantial, negative for Suicidal Ideation or negative for Homicidal Ideation Depressive Symptoms: Increased Anxiety, Increased Irritability, Loss of Int. in Activity, Hopelessness, Thoughts of /Suicide and Difficulty Concentrating Judgement: Fair Diagnostics Vital Signs (24Hr): Vital Signs - 24 hr 11/28/21 18:00 11/29/21 08:00 Temperature 98.3 F 97.6 F Pulse Rate 60 82 Respiratory Rate 17 16 Blood Pressure 144/67 H 121/68 Pulse Oximetry 96 93 Oxygen Delivery Method Room Air Room Air BMI result Body Mass Index 17.8 Labs Results: 11/25/21 17:05 11/26/21 10:29 Imaging Radiology Impressions: ITS Impressions Chest X-Ray 11/25/21 17:49 IMPRESSION: No acute intrathoracic disease. The chest radiograph is abnormal. There is probable COPD and possible interstitial disease. Unfortunately, no prior imaging is available for comparison. Head CT 11/25/21 18:02 IMPRESSION: Chronic microvascular ischemic changes with no CT evidence of acute intracranial abnormality. Medications Medications Current Medications Acetaminophen (Acetaminophen 325 Mg Tablet) 650 mg PO Q6H PRN PRN Reason: Headache/Pain Mild Scale (1-3) Al Hydroxide/Mg Hydroxide (Magnesium Hydrox/Alum Hydrox 30 Ml Oral.Susp) 30 ml PO Q6H PRN PRN Reason: Heartburn/Nausea Alprazolam (Alprazolam 0.25 Mg Tablet) 0.125 mg PO Q6H PRN PRN Reason: Anxiety Alprazolam (Alprazolam 0.5 Mg Tablet) 0.5 mg PO BEDTIME [facility] Last Admin: 11/28/21 21:32 Dose: 0.5 mg Alprazolam (Alprazolam 0.25 Mg Tablet) 0.25 mg PO BID@0900,1500 [facility] Last Admin: 11/29/21 15:18 Dose: 0.25 mg Escitalopram Oxalate (Escitalopram Oxalate 20 Mg Tablet) 20 mg PO DAILY [facility] Last Admin: 11/29/21 08:48 Dose: 20 mg Famotidine (Famotidine 20 Mg Tablet) 20 mg PO TIDAC PRN PRN Reason: Dyspepsia Last Admin: 11/29/21 08:05 Dose: 20 mg Hydroxyzine HCl (Hydroxyzine Hcl 25 Mg Tablet) 25 mg PO Q6H PRN PRN Reason: Anxiety Magnesium Hydroxide (Milk Of Magnesia 30 Ml Oral.Susp) 30 ml PO DAILY PRN PRN Reason: Constipation Pt Own (Benefiber) 2 tsp PO DAILY PRN PRN Reason: Constipation Last Admin: 11/29/21 08:43 Dose: 2 tsp Pt Own ([facility] Heartburn Relief Es Alum/Mag 160/105 Mg) 2 tab PO BEDTIME [facility] Last Admin: 11/28/21 21:36 Dose: Not Given Trazodone HCl (Trazodone Hcl 50 Mg Tablet) 50 mg PO BEDTIME PRN PRN Reason: Insomnia Allergies Allergies Allergy/AdvReac Type Severity Reaction Status Date / Time amoxicillin Allergy Rash Verified 11/25/21 13:08 Assessment & Plan Assessment & Plan (1) Adnexal mass: Status: Acute Code(s): N94.89 - Other specified conditions associated with female genital organs and menstrual cycle (2) Abnormal weight loss: Status: Acute Code(s): R63.4 - Abnormal weight loss (3) Major depressive disorder: Status: Acute Code(s): F32.9 - Major depressive disorder, single episode, unspecified Assessment and Plan: Patient with history of generalized anxiety worsening depression particularly over the past number of weeks. Has left adnexal mass that will eventually need surgery. Reviewed treatment options reviewed issues related to ECT procedure [id number] Patient seen in psychiatric follow-up. Patient given again much Education support regarding decision to go forward with ECT. She will need to continue on benzodiazepine for now would consider trying to introduce Seroquel or olanzapine for anxiety and treatment resistant depression. Plan A 80 years old lady with PMH of GERD, anxiety, depression who presents to the hospital for [facility] psych admission for measures depression and anorexia. Abnormal weight loss Likely secondary to major depressive disorder Evidence of adnexal mass with possible malignancy could be contributing to anorexia Treatment per Psychiatry team EKG was reviewed, no abnormality Patient had recent echo with EF of 55-60% Patient has no contraindications for ECT procedure as directed by Psychiatry team Adnexal mass Reported on 10/05/2021 on ultrasound Patient had discussion with gynecology Oncology team and a seeking a 2nd opinion No additional tests inpatient Thank you for the consult, please contact hospitalist team for any further questions. I spent minutes with the patient and/or on the patient floor today, greater than?50% of which was spent counseling/coordinating care. Reason for contiued inpatient stay Substantial Risk for: inability to function, rapid decompensation and med/psych decompensation
[2021-11-29 20:00] VITALS: BP 162/70; PULSE 73; TEMP 36.6; O2SAT 99
[2021-11-29] MEDS: ALPRAZolam 0.5 MG TABLET PO (21:32)
[2021-11-30] VITALS (14 sets, daily range): BP systolic 82–170; BP diastolic 45–94; PULSE 73–103; RESP 12–24; TEMP 36.4–37.7; O2SAT 91–97
--- NOTE | 2021-11-30 | ECG_ITS ---
Test Reason : hypotension Blood Pressure : / mmHG Vent. Rate : 067 BPM Atrial Rate : 067 BPM P-R Int : 142 ms QRS Dur : 090 ms QT Int : 410 ms P-R-T Axes : 069 078 068 degrees QTc Int : 433 ms Normal sinus rhythm Septal infarct , age undetermined Possible Lateral infarct , age undetermined Abnormal ECG When compared with ECG of 25-NOV-2021 16:02, Borderline criteria for Lateral infarct are now Present Referred By: Jennifer Croft Electronically Signed By:
--- NOTE | 2021-11-30 06:37 | HO.ANESPROP2 ---
[facility] Active Problems Active Problems: All Active Problems (Updated 11/26/21 @ 15:40 by Laney Gorman MD) Anxiety (Acute) Insomnia (Acute) Major depressive disorder (Acute) Depression (Acute) Abnormal weight loss (Acute) Adnexal mass (Acute) Past Medical History Medical History (Updated 11/26/21 @ 15:40 by Laney Gorman MD) Anxiety Insomnia Major depressive disorder Family History Family history of problems with anesthesia: No Surgical History History of Problems with Anesthesia: No Social History Social History Household Members: None Housing: Apartment Do you presently have visiting nurse or other home services: No Patient Tobacco Use Status: Never used Tobacco Use of substances other than those prescribed or required for medical reasons: No Currently Displaying Signs/Symptoms of Drug Intoxication Withdrawal: No Have you been hit, kicked, punched, or otherwise hurt by someone within the past year? If so, by whom?: No Do you feel safe in your current relationship?: No Current Relationship Is there a partner from a previous relationship who is making you feel unsafe now?: No Are you made to feel afraid or neglected: No Advance Directives: Yes Advance Directives Information Provided: No Advance Directives on File: No Healthcare Proxy: No Guardian: No Do you have thoughts of harming others: None Do you have a plan to hurt others: No Plan Recently lost weight without trying: Yes How much weight loss: 14-23 pounds Eating poorly because of decreased appetite: Yes Nutrition screen score: 5 Nutrition Risks: Anorexia Patient : No : No Poor oral hygiene: No service: No Sexual orientation: Straight/Heterosexual Meds Allergies Allergy/AdvReac Type Severity Reaction Status Date / Time amoxicillin Allergy Rash Verified 11/25/21 13:08 Active Medications: Current Medications Acetaminophen (Acetaminophen 325 Mg Tablet) 650 mg PO Q6H PRN PRN Reason: Headache/Pain Mild Scale (1-3) Al Hydroxide/Mg Hydroxide (Magnesium Hydrox/Alum Hydrox 30 Ml Oral.Susp) 30 ml PO Q6H PRN PRN Reason: Heartburn/Nausea Alprazolam (Alprazolam 0.25 Mg Tablet) 0.125 mg PO Q6H PRN PRN Reason: Anxiety Alprazolam (Alprazolam 0.5 Mg Tablet) 0.5 mg PO BEDTIME [facility] Last Admin: 11/29/21 21:32 Dose: 0.5 mg Alprazolam (Alprazolam 0.25 Mg Tablet) 0.25 mg PO BID@0900,1500 [facility] Last Admin: 11/29/21 15:18 Dose: 0.25 mg Escitalopram Oxalate (Escitalopram Oxalate 20 Mg Tablet) 20 mg PO DAILY [facility] Last Admin: 11/29/21 08:48 Dose: 20 mg Famotidine (Famotidine 20 Mg Tablet) 20 mg PO TIDAC PRN PRN Reason: Dyspepsia Last Admin: 11/29/21 17:52 Dose: 20 mg Hydroxyzine HCl (Hydroxyzine Hcl 25 Mg Tablet) 25 mg PO Q6H PRN PRN Reason: Anxiety Magnesium Hydroxide (Milk Of Magnesia 30 Ml Oral.Susp) 30 ml PO DAILY PRN PRN Reason: Constipation Pt Own (Benefiber) 2 tsp PO DAILY PRN PRN Reason: Constipation Last Admin: 11/29/21 08:43 Dose: 2 tsp Non-Formulary Medication (Aluminum Hydroxide) 2 tab PO QID PRN PRN Reason: Dyspepsia Trazodone HCl (Trazodone Hcl 50 Mg Tablet) 50 mg PO BEDTIME PRN PRN Reason: Insomnia Home Medications Medication Instructions Recorded Confirmed Last Taken Type Xanax 0.125 mg PO NEEDED PRN Insomnia 11/26/21 11/26/21 Unknown History Xanax 0.25 mg PO BEDTIME insomnia 11/26/21 11/26/21 11/25/21 History 0.25 mg Exam Exam Date and Time: November 30, 2021 0637 Height,Weight and Vital Signs: Height 5 ft 7 in Weight 51.6 kg Last Vital Signs Temp 97.9 F 11/30/21 06:26 Pulse 88 11/30/21 06:26 Resp 16 11/30/21 06:26 BP 124/60 11/30/21 06:26 Pulse Ox 97 11/30/21 06:26 O2 Del Method 11/30/21 06:00 Pertinent Lab Results Pertinent Lab Results: Laboratory Tests 11/25/21 11/25/21 11/25/21 15:37 15:37 15:37 WBC RBC Hgb Hct MCV MCH MCHC RDW Plt Count MPV Immature Gran % (Auto) Neut % (Auto) Lymph % (Auto) Bartholomew % (Auto) Eos % (Auto) Baso % (Auto) Lymph # (Auto) Bartholomew # (Auto) Eos # (Auto) Baso # (Auto) Abs Immat Gran (auto) Absolute Neuts (auto) Absolute Nucleated RBC Nucleated RBC % (auto) Sodium Potassium Chloride Carbon Dioxide Anion Gap BUN Creatinine Estim Creat Clear Calc Estimated GFR Random Glucose Fasting Glucose Calcium Total Bilirubin AST ALT Alkaline Phosphatase Total Creatine Kinase Total Protein Albumin Triglycerides Cholesterol LDL Cholesterol, Calc HDL Cholesterol Lipase Vitamin B12 Folate TSH Urine Color Yellow Urine Appearance Clear Urine pH 6.5 Ur Specific Liberty <= 1.005 Urine Protein Negative Urine Glucose (UA) Negative Urine Ketones Negative Urine Blood Negative Urine Nitrite Negative Ur Leukocyte Esterase Large (3+) H Urine RBC 0-2 Urine WBC 11-20 Ur Squamous Epith Cells 0-2 Urine Bacteria 4+ Hyaline Casts 0-2 Salicylates Urine Opiates Screen Not Detected Urine Fentanyl Screen Not Detected Acetaminophen Ur Barbiturates Screen Not Detected Ur Phencyclidine Scrn Not Detected Ur Amphetamines Screen Not Detected U Benzodiazepines Scrn POSITIVE H Urine Cocaine Screen Not Detected U Marijuana (THC) Screen Not Detected Ethyl Alcohol COVID-19 (ALCIRA) Negative COVID-19 Clin Com See Note 11/25/21 11/25/21 11/25/21 17:05 17:05 17:05 WBC 6.2 RBC 4.38 Hgb 13.2 Hct 39.8 MCV 90.9 MCH 30.1 MCHC 33.2 RDW 13.5 Plt Count 288 MPV 9.5 Immature Gran % (Auto) 0.3 Neut % (Auto) 70.9 Lymph % (Auto) 18.5 L Bartholomew % (Auto) 8.8 Eos % (Auto) 1.0 Baso % (Auto) 0.5 Lymph # (Auto) 1.1 L Bartholomew # (Auto) 0.5 Eos # (Auto) 0.1 Baso # (Auto) 0.0 Abs Immat Gran (auto) 0.02 Absolute Neuts (auto) 4.4 Absolute Nucleated RBC 0.000 Nucleated RBC % (auto) 0.0 Sodium 141 Potassium 4.8 Chloride 101 Carbon Dioxide 29 Anion Gap 16 BUN 11 Creatinine 0.70 Estim Creat Clear Calc 53.0 Estimated GFR > 60 Random Glucose 90 Fasting Glucose Calcium 9.2 Total Bilirubin 0.5 AST 18 ALT 11 Alkaline Phosphatase 59 Total Creatine Kinase 51 Total Protein 6.8 Albumin 4.0 Triglycerides Cholesterol LDL Cholesterol, Calc HDL Cholesterol Lipase 32 Vitamin B12 Folate TSH 1.03 Urine Color Urine Appearance Urine pH Ur Specific Liberty Urine Protein Urine Glucose (UA) Urine Ketones Urine Blood Urine Nitrite Ur Leukocyte Esterase Urine RBC Urine WBC Ur Squamous Epith Cells Urine Bacteria Hyaline Casts Salicylates < 5.0 L Urine Opiates Screen Urine Fentanyl Screen Acetaminophen < 1 Ur Barbiturates Screen Ur Phencyclidine Scrn Ur Amphetamines Screen U Benzodiazepines Scrn Urine Cocaine Screen U Marijuana (THC) Screen Ethyl Alcohol < 10 COVID-19 ([facility]IRA) COVID-19 [employer] Com 11/26/21 11/26/21 10:29 10:29 WBC RBC Hgb Hct MCV MCH MCHC RDW Plt Count MPV Immature Gran % (Auto) Neut % (Auto) Lymph % (Auto) Bartholomew % (Auto) Eos % (Auto) Baso % (Auto) Lymph # (Auto) Bartholomew # (Auto) Eos # (Auto) Baso # (Auto) Abs Immat Gran (auto) Absolute Neuts (auto) Absolute Nucleated RBC Nucleated RBC % (auto) Sodium 140 Potassium 4.2 Chloride 100 Carbon Dioxide 29 Anion Gap 15 BUN 8 L Creatinine 0.70 Estim Creat Clear Calc 53.0 Estimated GFR > 60 Random Glucose Fasting Glucose 103 H Calcium 9.3 Total Bilirubin 0.6 AST 18 ALT 12 Alkaline Phosphatase 61 Total Creatine Kinase Total Protein 7.0 Albumin 4.0 Triglycerides 59 Cholesterol 216 LDL Cholesterol, Calc 151 HDL Cholesterol 54 Lipase Vitamin B12 < 146 L Folate 12.2 TSH Urine Color Urine Appearance Urine pH Ur Specific Liberty Urine Protein Urine Glucose (UA) Urine Ketones Urine Blood Urine Nitrite Ur Leukocyte Esterase Urine RBC Urine WBC Ur Squamous Epith Cells Urine Bacteria Hyaline Casts Salicylates Urine Opiates Screen Urine Fentanyl Screen Acetaminophen Ur Barbiturates Screen Ur Phencyclidine Scrn Ur Amphetamines Screen U Benzodiazepines Scrn Urine Cocaine Screen U Marijuana (THC) Screen Ethyl Alcohol COVID-19 ([facility]CIRA) COVID-19 Clin Com Airway Mallampati Class: II (Caps top front 3 ) TM Dist: >3cm Neck ROM: Full Heart: rrr Lungs: cta Assessment and Plan Assessment Anesthesia Assessment: Anesthesia Plan Discussed and Chart Reviewed Final Anesthetic Review Family History of Problems with Anesthesia: No History of Problems with Anesthesia: No NPO: Yes ASA Class: III Final Preanesthetic Review: No Changes in Pt Med Stat, Meds/Allgs Chart Reviewed and Consent Obtained/Reviewed Patient Risk: Intermediate Procedure Risk: Intermediate Anesthetic Plan Anesthetic Plan: GA Disposition: Standard PACU
--- NOTE | 2021-11-30 07:04 | MHC.SHP ---
Pre-Procedural Eval Section A Date of Service: 11/30/21 The patient is an INPATIENT: Yes Changes since office visit: No Cold of Flu in the past 2 weeks, No New Medical Problems, No Changes in Medication and No Patient answered all questions The History & Physical has been completed within 30 days and I have reviewed it.: Yes Section B Chief Complaint: Severe Depression with marked anxiety Details of Present Illness: Hx of depression, fairly well controlled by Lexapro for years, now for the last 6 months with neurovegetative symptoms. Relevant Family History (Specify if Yes): No Relevant Social History: None Present Medications: see Short Stay Collaborative assessment Medical History: No relevant PMH History of Previous Operations: No relevant previous surgery Allergies: Allergies Allergy/AdvReac Type Severity Reaction Status Date / Time amoxicillin Allergy Rash Verified 11/25/21 13:08 Review of Systems Sugical H&P ROS: Negative: Constitution, Cardiovascular, Respiratory, Neurological, Psychiatric, Hem-Onc, Allergic/Immunologic, Gastrointestinal, Genitourinary, Musculoskeletal, Integumentary, Endocrine and Eyes/Ears/Nose/Throat Exam Surgical H&P Exam: Normal: HEENT, Normal: Heart, Normal: Lungs, Normal: Extremities, Normal: Abdomen, Normal: Skin and Normal: Neurological Plan Diagnosis/Plan: Unchanged I have reviewed the history and physical and performed a pertinent physical examination on my patient. No changes have occurred unless specified.
--- NOTE | 2021-11-30 07:40 | HO.ECTPROC ---
ECT Procedure Note Diagnosis/Treatment Date of Service: 11/30/21 Diagnosis: Major Depressive Disorder Current Treatment Number: 1 Treatment: Series Interval Clinical Notes: The patient reported dysphoria and anxiety, no changes on her mental status. ECT Settings Device: THYMATRON DGx Electrode Placement: Right Unilateral Program/Pulse Width: 0.25 Energy Percent: 100 Seizure Duration By EEG (in seconds): 99 By Motor Observation (in seconds): 0 Medications Administration General Anesthetic: Etomidate (12) Muscle Relaxant: Succinylcholine (80) Ancillary Medications Analgesics: Torodol - Pre ECT Anti-emetics: Zofran - Pre ECT Miscillaneous Medications: Flumazenil Airway Management Airway Management: Bag Mask Ventilation Treatment Recommendations Electrode Placement: Right Unilateral Program/Pulse Width: 0.25 Energy Percent: 80 Pt Tolerated Procedure w/o Issue: Yes
[2021-11-30] MEDS: ALPRAZolam 0.25 MG TABLET PO (09:47)
[2021-11-30] MEDS: Acetaminophen 325 MG TABLET 650 MG PO (13:40)
--- NOTE | 2021-11-30 14:49 | MHC.CLN ---
F/U PATIENT RESTING IN BED AT TIME OF VISIT. HAD ECT TODAY. REPORTS THAT ATE SOME FOOD/TOOK ENSURE CLEAR X 1 OVER WEEKEND. DIET=REGULAR WITH ENSURE CLEAR BID. CONTINUE TO FOLLOW FOR INTAKE.
[2021-11-30] MEDS: Ondansetron ODT 4 MG TAB.RAPDIS TRANSLINGU (15:15)
--- NOTE | 2021-11-30 16:07 | HO.PSYCHPN ---
Subjective Subjective Date of Service: 11/30/21 Reason For Visit: Severe Depression with marked anxiety Subjective Notes: Conditional Voluntary Interim History: The nursing staff reported the patient has been isolative during the weekend, she refused antibiotics for UTI over the weekend, she slept well. Today when she had ECT in the morning without any side effects. Later on, she complained of nausea and she received Phenergan on the PACU but later on I provided Zofran for nausea. The patient has refused to take any liquids or food or any other medications besides requesting Xanax. I call for hospitalist consult. Mental Status Exam Mental Status Exam Patient Appearance: Well Grooomed Patient Orientation: Person and Situation Level of Consciousness: Awake Patient Behavior: Cooperative Mood Description: Appropriate Affect Description: Constricted Patient Cognition Impaired: No Ability to Follow Directions: Good Speech Pattern: Clear Hallucinations: None Delusions: Not Present Thought Process: Distracted Thought Content: positive for Circumstantial Judgement: Fair Diagnostics Vital Signs (24Hr): Vital Signs - 24 hr 11/29/21 20:00 11/30/21 06:00 11/30/21 06:26 Temperature 97.8 F 97.9 F 97.9 F Pulse Rate 73 88 88 Respiratory Rate 16 16 Blood Pressure 162/70 H 124/60 124/60 Pulse Oximetry 99 97 97 Oxygen Delivery Method Room Air Room Air Oxygen Flow Rate 11/30/21 06:46 11/30/21 08:12 11/30/21 08:17 Temperature 97.6 F 98 F Pulse Rate 74 80 100 Respiratory Rate 20 24 H 12 Blood Pressure 142/61 H 167/86 H 170/94 H Pulse Oximetry 96 96 95 Oxygen Delivery Method Room Air Nasal Cannula Nasal Cannula Oxygen Flow Rate 2 3 11/30/21 08:22 11/30/21 08:27 11/30/21 08:42 Temperature Pulse Rate 103 H 99 100 Respiratory Rate 16 22 H 16 Blood Pressure 153/73 H 126/63 120/68 Pulse Oximetry 94 96 94 Oxygen Delivery Method Nasal Cannula Nasal Cannula Nasal Cannula Oxygen Flow Rate 3 2 2 11/30/21 08:57 11/30/21 09:12 11/30/21 09:27 Temperature Pulse Rate 89 73 75 Respiratory Rate 16 18 18 Blood Pressure 117/62 110/53 L 114/55 L Pulse Oximetry 97 97 97 Oxygen Delivery Method Nasal Cannula Nasal Cannula Room Air Oxygen Flow Rate 2 2 11/30/21 09:42 11/30/21 09:57 Temperature Pulse Rate 73 87 Respiratory Rate 18 18 Blood Pressure 103/46 L 126/66 Pulse Oximetry 96 96 Oxygen Delivery Method Room Air Room Air Oxygen Flow Rate 2 BMI result Body Mass Index 17.8 Labs Results: 11/25/21 17:05 11/26/21 10:29 Imaging Radiology Impressions: ITS Impressions Chest X-Ray 11/25/21 17:49 IMPRESSION: No acute intrathoracic disease. The chest radiograph is abnormal. There is probable COPD and possible interstitial disease. Unfortunately, no prior imaging is available for comparison. Head CT 11/25/21 18:02 IMPRESSION: Chronic microvascular ischemic changes with no CT evidence of acute intracranial abnormality. Medications Medications Current Medications Acetaminophen (Acetaminophen 325 Mg Tablet) 650 mg PO Q6H PRN PRN Reason: Headache/Pain Mild Scale (1-3) Last Admin: 11/30/21 13:40 Dose: 650 mg Al Hydroxide/Mg Hydroxide (Magnesium Hydrox/Alum Hydrox 30 Ml Oral.Susp) 30 ml PO Q6H PRN PRN Reason: Heartburn/Nausea Alprazolam (Alprazolam 0.25 Mg Tablet) 0.125 mg PO Q6H PRN PRN Reason: Anxiety Alprazolam (Alprazolam 0.5 Mg Tablet) 0.5 mg PO BEDTIME [facility] Last Admin: 11/29/21 21:32 Dose: 0.5 mg Alprazolam (Alprazolam 0.25 Mg Tablet) 0.25 mg PO BID@0900,1500 [facility] Last Admin: 11/30/21 11:28 Dose: Not Given Escitalopram Oxalate (Escitalopram Oxalate 20 Mg Tablet) 20 mg PO DAILY [facility] Last Admin: 11/30/21 14:38 Dose: Not Given Famotidine (Famotidine 20 Mg Tablet) 20 mg PO TIDAC PRN PRN Reason: Dyspepsia Last Admin: 11/29/21 17:52 Dose: 20 mg Hydroxyzine HCl (Hydroxyzine Hcl 25 Mg Tablet) 25 mg PO Q6H PRN PRN Reason: Anxiety Magnesium Hydroxide (Milk Of Magnesia 30 Ml Oral.Susp) 30 ml PO DAILY PRN PRN Reason: Constipation Pt Own (Benefiber) 2 tsp PO DAILY PRN PRN Reason: Constipation Last Admin: 11/29/21 08:43 Dose: 2 tsp Non-Formulary Medication (Aluminum Hydroxide) 2 tab PO QID PRN PRN Reason: Dyspepsia Trazodone HCl (Trazodone Hcl 50 Mg Tablet) 50 mg PO BEDTIME PRN PRN Reason: Insomnia Trimethoprim/Sulfamethoxazole (Sulfamethox/Trimeth 800/160 Tablet) 1 tab PO BID [facility] Allergies Allergies Allergy/AdvReac Type Severity Reaction Status Date / Time amoxicillin Allergy Rash Verified 11/25/21 13:08 Assessment & Plan Assessment & Plan (1) Adnexal mass: Status: Acute Code(s): N94.89 - Other specified conditions associated with female genital organs and menstrual cycle (2) Abnormal weight loss: Status: Acute Code(s): R63.4 - Abnormal weight loss (3) Major depressive disorder: Status: Acute Code(s): F32.9 - Major depressive disorder, single episode, unspecified Assessment and Plan: Patient with history of generalized anxiety worsening depression particularly over the past number of weeks. Has left adnexal mass that will eventually need surgery. Reviewed treatment options reviewed issues related to ECT procedure 46276 Patient seen in psychiatric follow-up. Patient given again much Education support regarding decision to go forward with ECT. She will need to continue on benzodiazepine for now would consider trying to introduce Seroquel or olanzapine for anxiety and treatment resistant depression. Plan A 80 years old lady with PMH of GERD, anxiety, depression who presents to the hospital for [facility] psych admission for measures depression and anorexia. Abnormal weight loss Likely secondary to major depressive disorder Evidence of adnexal mass with possible malignancy could be contributing to anorexia Treatment per Psychiatry team EKG was reviewed, no abnormality Patient had recent echo with EF of 55-60% Patient has no contraindications for ECT procedure as directed by Psychiatry team Adnexal mass Reported on 10/05/2021 on ultrasound Patient had discussion with gynecology Oncology team and a seeking a 2nd opinion No additional tests inpatient Thank you for the consult, please contact hospitalist team for any further questions. I spent __20____ minutes with the patient and/or on the patient floor today, greater than?50% of which was spent counseling/coordinating care. Reason for contiued inpatient stay Substantial Risk for: inability to function, rapid decompensation and med/psych decompensation
--- NOTE | 2021-11-30 17:16 | P.PNIM_ITS ---
Subjective Subjective Date of Service: 11/30/21 Interval History: Follow up consultation for this 80yo F with GERD, anxiety, and depression admitted to geriatric psychiatry unit for major depression with anorexia and weight loss. Medical consultation done by Dr Gorman on 11/26/21 and reference is made to that document. She was diagnosed with an adnexal mass at [facility] and had a Automobile Body Customizer-Onc consult during which surgery was recommended; she is seeking a 2nd opinion. EKG was normal and she had a recent echo with LVEF of 55-60%. She is currently on SMX/TMP for a Klebsiella UTI. She underwent ECT today. She has not been drinking or eating since then, complaining of acid reflux/heartburn. We were re-consulted because her BP was 82/45. She does report lightheadedness/dizziness. She denies fever, chills, dyspnea, cough, chest pain, palpitations, abdominal pain, nausea, or vomiting. I repeated her BP manually and did orthostatics, which were: lying- 102/60, 80 sitting- 88/54, 84 standing- 76/52, 96 Review of Systems Review of Systems: Yes all other systems are reviewed and are negative Physical Exam Vital Signs: Vital Signs: Last Vital Signs Temp 99.8 F 11/30/21 15:30 Pulse 91 11/30/21 15:30 Resp 18 11/30/21 15:30 BP 82/45 L 11/30/21 15:30 Pulse Ox 91 L 11/30/21 15:30 O2 Del Method 11/30/21 15:30 O2 Flow Rate 2 11/30/21 09:57 BMI result Body Mass Index 17.8 Gen: in no acute distress HEENT: sclera anicteric, dry mucosa Neck: supple, no adenopathy or goiter Lungs: clear to auscultation bilaterally Heart: regular rate and rhythm, no murmurs Abd: soft, non-tender, non-distended : no CVA tenderness Ext: no edema with normal radial, PT, and DP pulses Skin: warm/well-perfused Neuro: alert and oriented x3, no focal findings Psych: restricted affect Objective Data Active Medications Acetaminophen (Acetaminophen 325 Mg Tablet) 650 mg PO Q6H PRN PRN Reason: Headache/Pain Mild Scale (1-3) Last Admin: 11/30/21 13:40 Dose: 650 mg Documented By: ANTOINE Al Hydroxide/Mg Hydroxide (Magnesium Hydrox/Alum Hydrox 30 Ml Oral.Susp) 30 ml PO Q6H PRN PRN Reason: Heartburn/Nausea Alprazolam (Alprazolam 0.25 Mg Tablet) 0.125 mg PO Q6H PRN PRN Reason: Anxiety Alprazolam (Alprazolam 0.5 Mg Tablet) 0.5 mg PO BEDTIME [facility] Last Admin: 11/29/21 21:32 Dose: 0.5 mg Documented By: RISA Alprazolam (Alprazolam 0.25 Mg Tablet) 0.25 mg PO BID@0900,1500 [facility] Last Admin: 11/30/21 17:11 Dose: Not Given Documented By: ANTOINE Non-Admin Reason: pt with low bp Escitalopram Oxalate (Escitalopram Oxalate 20 Mg Tablet) 20 mg PO DAILY [facility] Last Admin: 11/30/21 14:38 Dose: Not Given Documented By: ANTOINE Non-Admin Reason: Patient Refused Famotidine (Famotidine 20 Mg Tablet) 20 mg PO TIDAC PRN PRN Reason: Dyspepsia Last Admin: 11/29/21 17:52 Dose: 20 mg Documented By: EMI Hydroxyzine HCl (Hydroxyzine Hcl 25 Mg Tablet) 25 mg PO Q6H PRN PRN Reason: Anxiety Sodium Chloride (Ns) 1,548 mls @ 1,548 mls/hr 30 ml/kg infuse over 1 hr (1548 ml) IV .Q1H STA Stop: 11/30/21 17:34 Magnesium Hydroxide (Milk Of Magnesia 30 Ml Oral.Susp) 30 ml PO DAILY PRN PRN Reason: Constipation Pt Own (Benefiber) 2 tsp PO DAILY PRN PRN Reason: Constipation Last Admin: 11/29/21 08:43 Dose: 2 tsp Documented By: EMI Non-Formulary Medication (Aluminum Hydroxide) 2 tab PO QID PRN PRN Reason: Dyspepsia Trazodone HCl (Trazodone Hcl 50 Mg Tablet) 50 mg PO BEDTIME PRN PRN Reason: Insomnia Trimethoprim/Sulfamethoxazole (Sulfamethox/Trimeth 800/160 Tablet) 1 tab PO BID [facility] Last Admin: 11/30/21 17:10 Dose: Not Given Documented By: ANTOINE Non-Admin Reason: Patient Refused Labs CBC & Chem 7: 11/25/21 17:05 11/26/21 10:29 Labs: Laboratory Tests 11/25/21 11/25/21 11/25/21 15:37 15:37 15:37 WBC RBC Hgb Hct MCV MCH MCHC RDW Plt Count MPV Immature Gran % (Auto) Neut % (Auto) Lymph % (Auto) [place] % (Auto) Eos % (Auto) Baso % (Auto) Lymph # (Auto) [place] # (Auto) Eos # (Auto) Baso # (Auto) Abs Immat Gran (auto) Absolute Neuts (auto) Absolute Nucleated RBC Nucleated RBC % (auto) Sodium Potassium Chloride Carbon Dioxide Anion Gap BUN Creatinine Estim Creat Clear Calc Estimated GFR Random Glucose Fasting Glucose Calcium Total Bilirubin AST ALT Alkaline Phosphatase Total Creatine Kinase Total Protein Albumin Triglycerides Cholesterol LDL Cholesterol, Calc HDL Cholesterol Lipase Vitamin B12 Folate TSH Urine Color Yellow Urine Appearance Clear Urine pH 6.5 Ur Specific [place] <= 1.005 Urine Protein Negative Urine Glucose (UA) Negative Urine Ketones Negative Urine Blood Negative Urine Nitrite Negative Ur Leukocyte Esterase Large (3+) H Urine RBC 0-2 Urine WBC 11-20 Ur Squamous Epith Cells 0-2 Urine Bacteria 4+ Hyaline Casts 0-2 Salicylates Urine Opiates Screen Not Detected Urine Fentanyl Screen Not Detected Acetaminophen Ur Barbiturates Screen Not Detected Ur Phencyclidine Scrn Not Detected Ur Amphetamines Screen Not Detected U Benzodiazepines Scrn POSITIVE H Urine Cocaine Screen Not Detected U Marijuana (THC) Screen Not Detected Ethyl Alcohol COVID-19 (ALCIRA) Negative COVID-19 Clin Com See Note 11/25/21 11/25/21 11/25/21 17:05 17:05 17:05 WBC 6.2 RBC 4.38 Hgb 13.2 Hct 39.8 MCV 90.9 MCH 30.1 MCHC 33.2 RDW 13.5 Plt Count 288 MPV 9.5 Immature Gran % (Auto) 0.3 Neut % (Auto) 70.9 Lymph % (Auto) 18.5 L [place] % (Auto) 8.8 Eos % (Auto) 1.0 Baso % (Auto) 0.5 Lymph # (Auto) 1.1 L [place] # (Auto) 0.5 Eos # (Auto) 0.1 Baso # (Auto) 0.0 Abs Immat Gran (auto) 0.02 Absolute Neuts (auto) 4.4 Absolute Nucleated RBC 0.000 Nucleated RBC % (auto) 0.0 Sodium 141 Potassium 4.8 Chloride 101 Carbon Dioxide 29 Anion Gap 16 BUN 11 Creatinine 0.70 Estim Creat Clear Calc 53.0 Estimated GFR > 60 Random Glucose 90 Fasting Glucose Calcium 9.2 Total Bilirubin 0.5 AST 18 ALT 11 Alkaline Phosphatase 59 Total Creatine Kinase 51 Total Protein 6.8 Albumin 4.0 Triglycerides Cholesterol LDL Cholesterol, Calc HDL Cholesterol Lipase 32 Vitamin B12 Folate TSH 1.03 Urine Color Urine Appearance Urine pH Ur Specific [place] Urine Protein Urine Glucose (UA) Urine Ketones Urine Blood Urine Nitrite Ur Leukocyte Esterase Urine RBC Urine WBC Ur Squamous Epith Cells Urine Bacteria Hyaline Casts Salicylates < 5.0 L Urine Opiates Screen Urine Fentanyl Screen Acetaminophen < 1 Ur Barbiturates Screen Ur Phencyclidine Scrn Ur Amphetamines Screen U Benzodiazepines Scrn Urine Cocaine Screen U Marijuana (THC) Screen Ethyl Alcohol < 10 COVID-19 ([facility]CIRA) COVID-19 Clin Com 11/26/21 11/26/21 10:29 10:29 WBC RBC Hgb Hct MCV MCH MCHC RDW Plt Count MPV Immature Gran % (Auto) Neut % (Auto) Lymph % (Auto) [place] % (Auto) Eos % (Auto) Baso % (Auto) Lymph # (Auto) [place] # (Auto) Eos # (Auto) Baso # (Auto) Abs Immat Gran (auto) Absolute Neuts (auto) Absolute Nucleated RBC Nucleated RBC % (auto) Sodium 140 Potassium 4.2 Chloride 100 Carbon Dioxide 29 Anion Gap 15 BUN 8 L Creatinine 0.70 Estim Creat Clear Calc 53.0 Estimated GFR > 60 Random Glucose Fasting Glucose 103 H Calcium 9.3 Total Bilirubin 0.6 AST 18 ALT 12 Alkaline Phosphatase 61 Total Creatine Kinase Total Protein 7.0 Albumin 4.0 Triglycerides 59 Cholesterol 216 LDL Cholesterol, Calc 151 HDL Cholesterol 54 Lipase Vitamin B12 < 146 L Folate 12.2 TSH Urine Color Urine Appearance Urine pH Ur Specific [place] Urine Protein Urine Glucose (UA) Urine Ketones Urine Blood Urine Nitrite Ur Leukocyte Esterase Urine RBC Urine WBC Ur Squamous Epith Cells Urine Bacteria Hyaline Casts Salicylates Urine Opiates Screen Urine Fentanyl Screen Acetaminophen Ur Barbiturates Screen Ur Phencyclidine Scrn Ur Amphetamines Screen U Benzodiazepines Scrn Urine Cocaine Screen U Marijuana (THC) Screen Ethyl Alcohol COVID-19 (ALCIRA) COVID-19 Clin Com Assessment and Plan (1) Orthostatic hypotension: Status: Acute Plan 80yo F with anxiety, depression, GERD, and recently diagnosed adnexal mass admitted to geriatric psychiatry unit for major depression with anorexia/weight loss, s/p ECT this morning. Hospitalists re-consulted for hypotension. She is found to have orthostatic hypotension. # orthostatic hypotension - Will order IV and 1.5L normal saline, then recheck orthostatics. Will check CBCd, BMP, troponin, lactate, blood cultures. Also check EKG. Ultimately likely due to dehydration. # UTI - continue SMX/TMP. BCx to r/o bacteremia. # GERD - famotidine prn # adnexal mass - outpt Autom[employer] Body [employer]izer/Onc f/u Thank you for this consultation. We will continue to follow the patient with you. Quality Stroke Does the patient have a stroke diagnosis?: No VTE Prior VTE?: No VTE Risk Level:: Medical - low VTE Device Contraindication: N/A - Device Ordered VTE Drug Contraindication: Treatment Not Indicated
[2021-11-30] MEDS: Famotidine 20 MG TABLET PO (17:32)
[2021-11-30 17:58] LABS: MANUAL DIFF FLAG NO
[2021-11-30 18:00] LABS: Basophils Percent Auto 0.2 % (0-2); Eosinophils Percent Auto 0.2 % (0-4); Hematocrit 34.8 % (37.0-47.0); Hemoglobin 11.6 g/dl (12.0-16.0); Imm Gran Abs Auto 0.04 X10*3/uL (0.00-0.03); Imm Gran Pct Auto 0.3 % (0.0-0.4); Lymphocytes Absolute Auto 0.5 X10*3/uL (1.2-4.9); Lymphocytes Percent Auto 3.9 % (20-40); Mean Corpuscular HGB Conc 33.3 g/dl (31.0-35.0); Mean Corpuscular Hemoglobin 30.4 pg (27.0-33.0); Mean Corpuscular Volume 91.3 fL (80.0-98.0); Mean Platelet Volume 9.4 fL (9.4-12.3); Monocytes Absolute Auto 0.9 X10*3/uL (0.1-1.2); Monocytes Percent Auto 6.5 % (2-11); Neutrophils Percent Auto 88.9 % (45-73); Platelet Count 283 X10*3/uL (160-400); Red Blood Count 3.81 X10*6/uL (4.20-5.50); Red Cell Distribution Width 13.9 % (11.0-16.0); White Blood Count 13.5 X10*3/uL (4.8-10.8)
--- NOTE | 2021-11-30 18:27 | PC.NURSE ---
Pt received ECT this morning, came back onto the floor with no issue. Pt encouraged to drink fluids, continued to state throughout the morning and afternoon I just can't, I can't do it . The pt was given zofran X1 SL for reported nausea with positive effect. Pt with afternoon BP of 82/45, pulse of 91, O2 of 91, and temp of 99.8. Dr. Philippe notified and a hospitalist consult was ordered. Hospitalist completed orthostatics with result of lyin/60; sittin/54; standing 76/52. Orders placed for IV placement with order for 1/5 ltrs NS to be given over 1 hour; EKG; and labs including BMP, CBC, troponin, lactate, blood cultures.
[2021-11-30 18:30] LABS: Anion Gap 13 (12-20); Blood Urea Nitrogen 12 mg/dL (9-16); Calcium 8.5 mg/dL (8.4-10.2); Carbon Dioxide 28 mmol/L (22-29); Chloride 100 mmol/L (96-108); Creatinine Clr Calc Pharmacy 56.3; Estimated Glomerular Filt Rate > 60; Glucose Random 103 mg/dL (60-115); Potassium 4.1 mmol/L (3.3-5.1); Sodium 137 mmol/L (135-145)
[2021-11-30 18:34] LABS: Troponin-I High Sensitivity 2520.8 ng/L (<3.5-17.0)
--- NOTE | 2021-11-30 19:06 | PM.IMHP ---
History of Present Illness Date of Service: 11/30/21 Chief Complaint: elevated troponin 80yo F with GERD, anxiety, and depression admitted to geriatric psychiatry unit for major depression with anorexia and weight loss. Medical consultation done by Dr Gorman on 11/26/21 and reference is made to that document.? She was diagnosed with an adnexal mass at [facility] and had a Customer Contact Sales Associate-Onc consult during which surgery was recommended; she is seeking a 2nd opinion. EKG was normal and she reportdly had a recent echo with LVEF of 55-60%. She is currently on SMX/TMP for a Klebsiella UTI. She underwent ECT today.? She has not been drinking or eating since then, and has been complaining of acid reflux/heartburn, for which she has prn Maalox and prn famotidine but has been refusing it. We were re-consulted because her BP was 82/45.? She does report lightheadedness/dizziness along with the heartburn. She denies fever, chills, dyspnea, cough, chest pain, palpitations, abdominal pain, nausea, or vomiting. I repeated her BP manually and did orthostatics, which were: lying- 102/60, 80 sitting- 88/54, 84 standing- 76/52, 96 Hs-Tn-I was 2520.8. EKG showed NSR with septal Q waves; no ST elevations or T wave inversions. She was given 325 mg of ASA and 80 mg of atorvastatin and transferred to the [facility]. I also note her vitamin B12 level on admission to geriatric psychiatry was <146. Review of Systems Review of Systems: Yes all other systems are reviewed and are negative [facility] Medical History Anxiety Insomnia Major depressive disorder Pertinent family history: no CAD Social History Household Members: None Housing: Apartment Do you presently have visiting nurse or other home services: No Patient Tobacco Use Status: Never used Tobacco service: No Sexual orientation: Straight/Heterosexual Meds Allergies Allergy/AdvReac Type Severity Reaction Status Date / Time amoxicillin Allergy Rash Verified 11/25/21 13:08 Active Medications: Current Medications Acetaminophen (Acetaminophen 325 Mg Tablet) 650 mg PO Q6H PRN PRN Reason: Headache/Pain Mild Scale (1-3) Last Admin: 11/30/21 13:40 Dose: 650 mg Al Hydroxide/Mg Hydroxide (Magnesium Hydrox/Alum Hydrox 30 Ml Oral.Susp) 30 ml PO Q6H PRN PRN Reason: Heartburn/Nausea Alprazolam (Alprazolam 0.25 Mg Tablet) 0.125 mg PO Q6H PRN PRN Reason: Anxiety Alprazolam (Alprazolam 0.5 Mg Tablet) 0.5 mg PO BEDTIME REPLACED BY [facility] Last Admin: 11/29/21 21:32 Dose: 0.5 mg Alprazolam (Alprazolam 0.25 Mg Tablet) 0.25 mg PO BID@0900,1500 REPLACED BY [facility] Last Admin: 11/30/21 17:11 Dose: Not Given Cyanocobalamin (Cyanocobalamin (Vitamin B-12) 1,000 Mcg/Ml Vial) 1,000 mcg IM DAILY REPLACED BY [facility] Stop: 12/07/21 09:01 Escitalopram Oxalate (Escitalopram Oxalate 20 Mg Tablet) 20 mg PO DAILY REPLACED BY [facility] Last Admin: 11/30/21 14:38 Dose: Not Given Famotidine (Famotidine 20 Mg Tablet) 20 mg PO TIDAC PRN PRN Reason: Dyspepsia Last Admin: 11/30/21 17:32 Dose: 20 mg Hydroxyzine HCl (Hydroxyzine Hcl 25 Mg Tablet) 25 mg PO Q6H PRN PRN Reason: Anxiety Magnesium Hydroxide (Milk Of Magnesia 30 Ml Oral.Susp) 30 ml PO DAILY PRN PRN Reason: Constipation Pt Own (Benefiber) 2 tsp PO DAILY PRN PRN Reason: Constipation Last Admin: 11/29/21 08:43 Dose: 2 tsp Non-Formulary Medication (Aluminum Hydroxide) 2 tab PO QID PRN PRN Reason: Dyspepsia Trazodone HCl (Trazodone Hcl 50 Mg Tablet) 50 mg PO BEDTIME PRN PRN Reason: Insomnia Trimethoprim/Sulfamethoxazole (Sulfamethox/Trimeth 800/160 Tablet) 1 tab PO BID REPLACED BY [facility] Last Admin: 11/30/21 17:10 Dose: Not Given Home Medications Medication Instructions Recorded Confirmed Last Taken Type alprazolam 0.25 mg tablet 0.125 mg PO Q6H PRN Anxiety 11/30/21 11/30/21 Unknown History alprazolam 0.25 mg tablet 0.25 mg PO BID@0900,1500 11/30/21 11/30/21 Unknown History alprazolam 0.5 mg tablet 0.5 mg PO BEDTIME 11/30/21 11/30/21 Unknown History aluminum hydrox-magnesium carb 160 2 tab PO QID PRN Dyspepsia 11/30/21 11/30/21 Unknown History mg-105 mg chewable tablet cyanocobalamin (vitamin B-12) 1,000 mcg IM DAILY 11/30/21 11/30/21 Unknown History 1,000 mcg/mL injection solution escitalopram oxalate 20 mg tablet 20 mg PO DAILY 11/30/21 11/30/21 Unknown History famotidine 20 mg tablet 20 mg PO TIDAC PRN Acid Reflux 11/30/21 11/30/21 Unknown History hydroxyzine HCl 25 mg tablet 25 mg PO Q6H PRN Anxiety 11/30/21 11/30/21 Unknown History sulfamethoxazole 800 1 tab PO BID 11/30/21 11/30/21 Unknown History mg-trimethoprim 160 mg tablet (Bactrim DS) trazodone 50 mg tablet 50 mg PO BEDTIME PRN Sleep 11/30/21 11/30/21 Unknown History wheat dextrin-calcium 2 ea PO DAILY PRN Constipation 11/30/21 11/30/21 Unknown History gluc,lact-aspartam 3 gram-200mg/6 gram oral powd Physical Exam Vital Signs and Narrative: Vital Signs: Last Vital Signs Temp 99.8 F 11/30/21 15:30 Pulse 91 11/30/21 15:30 Resp 18 11/30/21 15:30 BP 82/45 L 11/30/21 15:30 Pulse Ox 91 L 11/30/21 15:30 O2 Del Method 11/30/21 15:30 O2 Flow Rate 2 11/30/21 09:57 BMI result Body Mass Index 17.8 Gen: in no acute distress, malnourished appearing HEENT: sclera anicteric, dry mucus membranes Neck: supple Lungs: clear to auscultation bilaterally Heart: regular rate and rhythm, no murmurs Abd: soft, non-tender, non-distended Ext: no edema Skin: warm/well-perfused Neuro: alert and oriented x3, no focal findings Psych: appropriate affect Results Labs CBC and Chem 7: 11/30/21 17:49 11/30/21 17:49 Labs: Laboratory Results - last 24 hr 11/30/21 11/30/21 11/30/21 17:49 17:49 17:49 MCV 91.3 MCH 30.4 MCHC 33.3 RDW 13.9 Plt Count 283 MPV 9.4 Immature Gran % (Auto) 0.3 Neut % (Auto) 88.9 H Lymph % (Auto) 3.9 L [place] % (Auto) 6.5 Eos % (Auto) 0.2 Baso % (Auto) 0.2 Lymph # (Auto) 0.5 L [place] # (Auto) 0.9 Eos # (Auto) 0.0 Baso # (Auto) 0.0 Abs Immat Gran (auto) 0.04 H Absolute Neuts (auto) 12.0 H Absolute Nucleated RBC 0.000 Nucleated RBC % (auto) 0.0 Anion Gap 13 Estim Creat Clear Calc 56.3 Estimated GFR > 60 Random Glucose 103 Lactic Acid 1.0 Calcium 8.5 D Assessment and Plan (1) NSTEMI (non-ST elevated myocardial infarction): Status: Acute Plan 80yo F with anxiety, depression, GERD, and recently diagnosed adnexal mass admitted to geriatric psychiatry unit for major depression with anorexia/weight loss, s/p ECT this morning.? Hospitalists re-consulted for hypotension.? She has orthostatic hypotension and elevated Tn-I to 2520.8 concerning for NSTEMI. # NSTEMI - transfer to [facility], repeat hs-Tn-I in 3 hr, heparing IV infusion, continue ASA + atorvastatin, consult Cardiology, TTE. Of note she had a completely normal cardiac catheterization at [facility] in June 2020 so ACS is less likely; could be stress-induced cardiomyopathy. # orthostatic hypotension - getting 1.5L IV normal saline, then repeat blood pressure. avoid NTG # vitamin B12 deficiency - check intrinsic factor and parietal cell antibodies then start parenteral repletion with 1000 mcg IM daily x 7d then weekly # UTI - give ceftriaxone for Klebsiella UTI [has mild rash with amoxicillin, not hives] # depression/anxiety - continue escitalopram, alprazolam, prn trazodone # mild protein/calorie malnutrition - supplementation # VTE ppx: heparinization # code: full I anticipate that the patient will stay at least 2 midnights in hospital due to the above reasons. It is neither reasonable nor safe to care for them in a less acute setting. Quality Stroke Does the patient have a stroke diagnosis?: No VTE Prior VTE?: No VTE Risk Level:: Medical - low VTE Device Contraindication: N/A - Device Ordered VTE Drug Contraindication: Treatment Not Indicated
[2021-11-30] MEDS: Atorvastatin Calcium 80 MG TABLET PO (19:11)
[2021-11-30] MEDS: Aspirin 325 MG TABLET PO (19:11)
--- NOTE | 2021-11-30 19:20 | PC.NURSE ---
Critical level for troponin: troponin at 2.520.8m Dr Croft notified.
--- NOTE | 2021-11-30 19:55 | PC.NURSE ---
Pt being transferred to [facility] per order from Dr Croft.
--- NOTE | 2021-12-01 15:05 | P.DS_ITS ---
DS: Providers Provider Date of Service: 12/01/21 Date of admission: 11/25/21 19:57 Date of discharge: 11/30/21 Primary care physician: Rizwana Tripp MD Consults: 11/30/21 16:05 Consult to Hospitalist Stat Consulting Provider: Hospitalist Reason For Exam: hypotensive after ECT DS: Diagnosis Discharge Diagnosis (1) NSTEMI (non-ST elevated myocardial infarction): Status: Acute DS: Medications Discharge Medications Home Medications: Home Medications Medication Instructions Recorded Confirmed alprazolam 0.25 mg tablet 0.125 mg PO Q6H PRN Anxiety 11/30/21 11/30/21 alprazolam 0.25 mg tablet 0.25 mg PO BID@0900,1500 11/30/21 11/30/21 alprazolam 0.5 mg tablet 0.5 mg PO BEDTIME 11/30/21 11/30/21 aluminum hydrox-magnesium carb 160 2 tab PO QID PRN Dyspepsia 11/30/21 11/30/21 mg-105 mg chewable tablet cyanocobalamin (vitamin B-12) 1,000 mcg IM DAILY 11/30/21 11/30/21 1,000 mcg/mL injection solution escitalopram oxalate 20 mg tablet 20 mg PO DAILY 11/30/21 11/30/21 famotidine 20 mg tablet 20 mg PO TIDAC PRN Acid Reflux 11/30/21 11/30/21 hydroxyzine HCl 25 mg tablet 25 mg PO Q6H PRN Anxiety 11/30/21 11/30/21 sulfamethoxazole 800 1 tab PO BID 11/30/21 11/30/21 mg-trimethoprim 160 mg tablet (Bactrim DS) trazodone 50 mg tablet 50 mg PO BEDTIME PRN Sleep 11/30/21 11/30/21 wheat dextrin-calcium 2 ea PO DAILY PRN Constipation 11/30/21 11/30/21 gluc,lact-aspartam 3 gram-200mg/6 gram oral powd Mental Status Exam Mental Status Exam Patient Appearance: Well Grooomed Patient Orientation: Person, Place, Time and Situation Level of Consciousness: Awake Patient Behavior: Cooperative Mood Description: Calm Affect Description: Calm Patient Cognition Impaired: No Ability to Follow Directions: Good Speech Pattern: Clear Memory Description: Intact Hallucinations: None Delusions: Not Present Thought Process: Linear Thought Content: positive for Circumstantial Judgement: Fair Data Data Completed and Pending Completed studies during hospitalization [Text1]: 11/25/21 11/25/21 11/25/21 15:37 15:37 15:37 WBC RBC Hgb Hct MCV MCH MCHC RDW Plt Count MPV Immature Gran % (Auto) Neut % (Auto) Lymph % (Auto) [place] % (Auto) Eos % (Auto) Baso % (Auto) Lymph # (Auto) [place] # (Auto) Eos # (Auto) Baso # (Auto) Abs Immat Gran (auto) Absolute Neuts (auto) Absolute Nucleated RBC Nucleated RBC % (auto) Sodium Potassium Chloride Carbon Dioxide Anion Gap BUN Creatinine Estim Creat Clear Calc Estimated GFR Random Glucose Fasting Glucose Lactic Acid Calcium Total Bilirubin AST ALT Alkaline Phosphatase Total Creatine Kinase Troponin I High Sens Total Protein Albumin Triglycerides Cholesterol LDL Cholesterol, Calc HDL Cholesterol Lipase Vitamin B12 Folate TSH Urine Color Yellow Urine Appearance Clear Urine pH 6.5 Ur Specific [place] <= 1.005 Urine Protein Negative Urine Glucose (UA) Negative Urine Ketones Negative Urine Blood Negative Urine Nitrite Negative Ur Leukocyte Esterase Large (3+) H Urine RBC 0-2 Urine WBC 11-20 Ur Squamous Epith Cells 0-2 Urine Bacteria 4+ Hyaline Casts 0-2 Salicylates Urine Opiates Screen Not Detected Urine Fentanyl Screen Not Detected Acetaminophen Ur Barbiturates Screen Not Detected Ur Phencyclidine Scrn Not Detected Ur Amphetamines Screen Not Detected U Benzodiazepines Scrn POSITIVE H Urine Cocaine Screen Not Detected U Marijuana (THC) Screen Not Detected Ethyl Alcohol Anti-Parietal Cell Ab Intrinsic Factor Ab COVID-19 ([facility]CIRA) Negative COVID-19 Clin Com See Note 11/25/21 11/25/21 11/25/21 17:05 17:05 17:05 WBC 6.2 RBC 4.38 Hgb 13.2 Hct 39.8 MCV 90.9 MCH 30.1 MCHC 33.2 RDW 13.5 Plt Count 288 MPV 9.5 Immature Gran % (Auto) 0.3 Neut % (Auto) 70.9 Lymph % (Auto) 18.5 L [place] % (Auto) 8.8 Eos % (Auto) 1.0 Baso % (Auto) 0.5 Lymph # (Auto) 1.1 L [place] # (Auto) 0.5 Eos # (Auto) 0.1 Baso # (Auto) 0.0 Abs Immat Gran (auto) 0.02 Absolute Neuts (auto) 4.4 Absolute Nucleated RBC 0.000 Nucleated RBC % (auto) 0.0 Sodium 141 Potassium 4.8 Chloride 101 Carbon Dioxide 29 Anion Gap 16 BUN 11 Creatinine 0.70 Estim Creat Clear Calc 53.0 Estimated GFR > 60 Random Glucose 90 Fasting Glucose Lactic Acid Calcium 9.2 Total Bilirubin 0.5 AST 18 ALT 11 Alkaline Phosphatase 59 Total Creatine Kinase 51 Troponin I High Sens Total Protein 6.8 Albumin 4.0 Triglycerides Cholesterol LDL Cholesterol, Calc HDL Cholesterol Lipase 32 Vitamin B12 Folate TSH 1.03 Urine Color Urine Appearance Urine pH Ur Specific [place] Urine Protein Urine Glucose (UA) Urine Ketones Urine Blood Urine Nitrite Ur Leukocyte Esterase Urine RBC Urine WBC Ur Squamous Epith Cells Urine Bacteria Hyaline Casts Salicylates < 5.0 L Urine Opiates Screen Urine Fentanyl Screen Acetaminophen < 1 Ur Barbiturates Screen Ur Phencyclidine Scrn Ur Amphetamines Screen U Benzodiazepines Scrn Urine Cocaine Screen U Marijuana (THC) Screen Ethyl Alcohol < 10 Anti-Parietal Cell Ab Intrinsic Factor Ab COVID-19 ([facility]CIRA) COVID-19 Clin Com 11/26/21 11/26/21 11/30/21 10:29 10:29 17:49 WBC 13.5 H RBC 3.81 L Hgb 11.6 L Hct 34.8 L MCV 91.3 MCH 30.4 MCHC 33.3 RDW 13.9 Plt Count 283 MPV 9.4 Immature Gran % (Auto) 0.3 Neut % (Auto) 88.9 H Lymph % (Auto) 3.9 L [place] % (Auto) 6.5 Eos % (Auto) 0.2 Baso % (Auto) 0.2 Lymph # (Auto) 0.5 L [place] # (Auto) 0.9 Eos # (Auto) 0.0 Baso # (Auto) 0.0 Abs Immat Gran (auto) 0.04 H Absolute Neuts (auto) 12.0 H Absolute Nucleated RBC 0.000 Nucleated RBC % (auto) 0.0 Sodium 140 Potassium 4.2 Chloride 100 Carbon Dioxide 29 Anion Gap 15 BUN 8 L Creatinine 0.70 Estim Creat Clear Calc 53.0 Estimated GFR > 60 Random Glucose Fasting Glucose 103 H Lactic Acid Calcium 9.3 Total Bilirubin 0.6 AST 18 ALT 12 Alkaline Phosphatase 61 Total Creatine Kinase Troponin I High Sens Total Protein 7.0 Albumin 4.0 Triglycerides 59 Cholesterol 216 LDL Cholesterol, Calc 151 HDL Cholesterol 54 Lipase Vitamin B12 < 146 L Folate 12.2 TSH Urine Color Urine Appearance Urine pH Ur Specific [place] Urine Protein Urine Glucose (UA) Urine Ketones Urine Blood Urine Nitrite Ur Leukocyte Esterase Urine RBC Urine WBC Ur Squamous Epith Cells Urine Bacteria Hyaline Casts Salicylates Urine Opiates Screen Urine Fentanyl Screen Acetaminophen Ur Barbiturates Screen Ur Phencyclidine Scrn Ur Amphetamines Screen U Benzodiazepines Scrn Urine Cocaine Screen U Marijuana (THC) Screen Ethyl Alcohol Anti-Parietal Cell Ab Intrinsic Factor Ab COVID-19 ([facility]CIRA) COVID-MT DIGITAL MEDIA 11/30/21 11/30/21 11/30/21 17:49 17:49 17:49 WBC RBC Hgb Hct MCV MCH MCHC RDW Plt Count MPV Immature Gran % (Auto) Neut % (Auto) Lymph % (Auto) [place] % (Auto) Eos % (Auto) Baso % (Auto) Lymph # (Auto) [place] # (Auto) Eos # (Auto) Baso # (Auto) Abs Immat Gran (auto) Absolute Neuts (auto) Absolute Nucleated RBC Nucleated RBC % (auto) Sodium 137 Potassium 4.1 Chloride 100 Carbon Dioxide 28 Anion Gap 13 BUN 12 Creatinine 0.66 Estim Creat Clear Calc 56.3 Estimated GFR > 60 Random Glucose 103 Fasting Glucose Lactic Acid 1.0 Calcium 8.5 D Total Bilirubin AST ALT Alkaline Phosphatase Total Creatine Kinase Troponin I High Sens 2520.8 H* Total Protein Albumin Triglycerides Cholesterol LDL Cholesterol, Calc HDL Cholesterol Lipase Vitamin B12 Folate TSH Urine Color Urine Appearance Urine pH Ur Specific [place] Urine Protein Urine Glucose (UA) Urine Ketones Urine Blood Urine Nitrite Ur Leukocyte Esterase Urine RBC Urine WBC Ur Squamous Epith Cells Urine Bacteria Hyaline Casts Salicylates Urine Opiates Screen Urine Fentanyl Screen Acetaminophen Ur Barbiturates Screen Ur Phencyclidine Scrn Ur Amphetamines Screen U Benzodiazepines Scrn Urine Cocaine Screen U Marijuana (THC) Screen Ethyl Alcohol Anti-Parietal Cell Ab Intrinsic Factor Ab COVID-19 ([facility]CIRA) COVID-MT DIGITAL MEDIA 11/30/21 11/30/21 17:49 17:49 WBC RBC Hgb Hct MCV MCH MCHC RDW Plt Count MPV Immature Gran % (Auto) Neut % (Auto) Lymph % (Auto) [place] % (Auto) Eos % (Auto) Baso % (Auto) Lymph # (Auto) [place] # (Auto) Eos # (Auto) Baso # (Auto) Abs Immat Gran (auto) Absolute Neuts (auto) Absolute Nucleated RBC Nucleated RBC % (auto) Sodium Potassium Chloride Carbon Dioxide Anion Gap BUN Creatinine Estim Creat Clear Calc Estimated GFR Random Glucose Fasting Glucose Lactic Acid Calcium Total Bilirubin AST ALT Alkaline Phosphatase Total Creatine Kinase Troponin I High Sens Total Protein Albumin Triglycerides Cholesterol LDL Cholesterol, Calc HDL Cholesterol Lipase Vitamin B12 Folate TSH Urine Color Urine Appearance Urine pH Ur Specific [place] Urine Protein Urine Glucose (UA) Urine Ketones Urine Blood Urine Nitrite Ur Leukocyte Esterase Urine RBC Urine WBC Ur Squamous Epith Cells Urine Bacteria Hyaline Casts Salicylates Urine Opiates Screen Urine Fentanyl Screen Acetaminophen Ur Barbiturates Screen Ur Phencyclidine Scrn Ur Amphetamines Screen U Benzodiazepines Scrn Urine Cocaine Screen U Marijuana (THC) Screen Ethyl Alcohol Anti-Parietal Cell Ab Cancelled Intrinsic Factor Ab Cancelled COVID-19 ([facility]IRA) COVID-19 Clin Com 11/30/21 17:49 Blood - Venous Blood Culture - Pending 11/30/21 17:49 Blood - Venous Blood Culture - Pending 11/25/21 17:13 Urine clean catch - Urine anne top Urine Culture - Final Klebsiella pneumoniae Corynebacterium species Imaging Diagnostic Imaging Impressions Chest X-Ray 11/25/21 17:49 IMPRESSION: No acute intrathoracic disease. The chest radiograph is abnormal. There is probable COPD and possible interstitial disease. Unfortunately, no prior imaging is available for comparison. Head CT 11/25/21 18:02 IMPRESSION: Chronic microvascular ischemic changes with no CT evidence of acute intracranial abnormality. DS: Summary Hospital Course Hospital Course: The patient was admitted for exacerbation of depression and she was scheduled to have ECT. Please see the HPI of the admission for further details. Rescheduled a CT for yesterday November 30 and she had the procedure without any side effects or common occasions. Later on, she felt nauseous and she received Phenergan on PACU and later so from here but she was complaining of dyspepsia. She refused to take any p.o. liquids and her blood pressure was is going slightly down. The patient felt very tired with GERD symptoms and slightly hypotensive so I called Medicine for medical follow-up. It was found that she have troponins over 2500 and EKG changes so she was transferred to the [facility] unit for assessment and evaluation. Time spent discussing smoking cessation with patient: 3 to 10 minutes Status at Discharge Cognitive/behavioral status at discharge: At baseline Functional status at discharge: independent ambulation Overall status at discharge: patient is back to baseline Time Spent with Patient Time attestation: Total time spent providing and/or coordinating discharge services: Time spent: Less than 30 minutes Discharge Plan Discharge Patient Disposition: Xfer Other Discharge Diagnosis: Major depressive disorder. Cardiac vascular event. Referrals: Dr Gloria Peng [facility] [Other] - 1 Week Palak Anne (therapist) [Other] - 1 Week Rizwana Tripp MD [Primary Care Provider] - 1 Week Discharge Medications: Continued trazodone 50 mg Tablet 50 mg PO BEDTIME PRN (Reason: Sleep) sulfamethoxazole-trimethoprim [Bactrim DS] 800-160 mg Tablet 1 tab PO BID alprazolam 0.5 mg Tablet 0.5 mg PO BEDTIME alprazolam 0.25 mg Tablet 0.25 mg PO BID@0900,1500 alprazolam 0.25 mg Tablet 0.125 mg PO Q6H PRN (Reason: Anxiety) famotidine 20 mg Tablet 20 mg PO TIDAC PRN (Reason: Acid Reflux) cyanocobalamin (vitamin B-12) 1,000 mcg/mL Solution 1,000 mcg IM DAILY Rx Instructions: LAST DOSE 12/07/21 hydroxyzine HCl 25 mg Tablet 25 mg PO Q6H PRN (Reason: Anxiety) aluminum hydrox-magnesium carb 160-105 mg Tablet,Chewable 2 tab PO QID PRN (Reason: Dyspepsia) escitalopram oxalate 20 mg Tablet 20 mg PO DAILY Benefiber + Calcium Sugar-Free 3 gram-200 mg /6 gram Powder 2 ea PO DAILY PRN (Reason: Constipation) Discharge Orders: Discharge Order (Routine); Ordered 11/30/21 Ordered By: Jesica Clements Diet: Advance to usual diet Activity on Discharge: As tolerated Stand Alone Forms: Patient Portal Discharge page Care Plan Goals: Patient transferred to [facility] for medical treatment Health Concerns: Patient transferred to [facility] for medical treatment Plan of Treatment: Continue treatment at [facility] Assessment: Adult female with major depressive disorder admitted for ECT who had a cardiovascular event after ECT currently medically treated. Discharge Date/Time: 11/30/21 20:00
--- NOTE | 2021-12-02 15:59 | P.CNPS_ITS ---
History of Present Illness Date of Service: t Chief Complaint: Severe Depression with marked anxiety Reason for Consult: Assessment of mental status and treatment options Requesting physician: Jennifer Croft / [place] Discussed with referring provider: Yes Sources of Information: patient interviewed, chart reviewed and crisis/core team assessment reviewed HPI Narrative: The patient is a 80-year-old female, , mother father children with a long history of major depressive disorder admitted into [facility] for ECT since she had an exacerbation of depression in the last 6 months with severe neurovegetative symptoms. We had her 1st ECT and after that she had cardiovascular problems and transferring to this facility for medical assessment. On interview, the patient denies new symptoms she remains dysphoric and anxious but no safety concerns. No evidence of suicidal or homicidal ideation no psychotic symptoms. Very scared after this episode after ECT. Past Psychiatric History: Never admitted into the hospital she has been followed outpatient services most of her life she was fairly well on Lexapro for more than 14 years. She had a bad reaction with Cymbalta with no efficacy in worsening of depression. Medical Evaluation Reviewed: Yes [facility] Medical History Anxiety Insomnia Major depressive disorder Family History: Most of her maternal aunts and mother probably had mood symptoms, mostly anxiety and depression. Social History: The patient is the youngest of 2 siblings, her milestones were achieved at expected patient she was raised by her parents. 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 She was , her a few years ago, and she had tree adult children. She has good social support. Substance History: Denies Trauma History: Denies Diagnostics Vital Signs (24Hr): BMI result Body Mass Index 17.8 Labs Results: 11/30/21 17:49 11/30/21 17:49 Labs: Laboratory Results - last 48 hr 11/30/21 11/30/21 11/30/21 17:49 17:49 17:49 WBC 13.5 H RBC 3.81 L Hgb 11.6 L Hct 34.8 L MCV 91.3 MCH 30.4 MCHC 33.3 RDW 13.9 Plt Count 283 MPV 9.4 Immature Gran % (Auto) 0.3 Neut % (Auto) 88.9 H Lymph % (Auto) 3.9 L [place] % (Auto) 6.5 Eos % (Auto) 0.2 Baso % (Auto) 0.2 Lymph # (Auto) 0.5 L [place] # (Auto) 0.9 Eos # (Auto) 0.0 Baso # (Auto) 0.0 Abs Immat Gran (auto) 0.04 H Absolute Neuts (auto) 12.0 H Absolute Nucleated RBC 0.000 Nucleated RBC % (auto) 0.0 Sodium 137 Potassium 4.1 Chloride 100 Carbon Dioxide 28 Anion Gap 13 BUN 12 Creatinine 0.66 Estim Creat Clear Calc 56.3 Estimated GFR > 60 Random Glucose 103 Lactic Acid 1.0 Calcium 8.5 D Troponin I High Sens Anti-Parietal Cell Ab Intrinsic Factor Ab 11/30/21 11/30/21 11/30/21 17:49 17:49 17:49 WBC RBC Hgb Hct MCV MCH MCHC RDW Plt Count MPV Immature Gran % (Auto) Neut % (Auto) Lymph % (Auto) [place] % (Auto) Eos % (Auto) Baso % (Auto) Lymph # (Auto) [place] # (Auto) Eos # (Auto) Baso # (Auto) Abs Immat Gran (auto) Absolute Neuts (auto) Absolute Nucleated RBC Nucleated RBC % (auto) Sodium Potassium Chloride Carbon Dioxide Anion Gap BUN Creatinine Estim Creat Clear Calc Estimated GFR Random Glucose Lactic Acid Calcium Troponin I High Sens 2520.8 H* Anti-Parietal Cell Ab Cancelled Intrinsic Factor Ab Cancelled Imaging Radiology Impressions: ITS Impressions Chest X-Ray 11/25/21 17:49 IMPRESSION: No acute intrathoracic disease. The chest radiograph is abnormal. There is probable COPD and possible interstitial disease. Unfortunately, no prior imaging is available for comparison. Head CT 11/25/21 18:02 IMPRESSION: Chronic microvascular ischemic changes with no CT evidence of acute intracranial abnormality. Mental Status Exam Mental Status Exam Patient Appearance: Well Grooomed Patient Orientation: Person and Situation Level of Consciousness: Awake Patient Behavior: Cooperative Mood Description: Calm Affect Description: Constricted Patient Cognition Impaired: No Ability to Follow Directions: Good Speech Pattern: Clear Hallucinations: None Delusions: Not Present Thought Process: Intact Thought Content: positive for Circumstantial Judgement: Fair Medications Allergies Allergies Allergy/AdvReac Type Severity Reaction Status Date / Time amoxicillin Allergy Rash Verified 11/25/21 13:08 Assessment & Plan Assessment & Plan (1) Cardiomyopathy: Status: Acute Code(s): I42.9 - Cardiomyopathy, unspecified (2) Major depressive disorder: Status: Acute Code(s): F32.9 - Major depressive disorder, single episode, unspecified Plan The patient is an elderly female with a history major depressive disorder admitted for ECT a [facility] but unfortunately after the 1st treatment she had a cardiovascular event that is resolving at this moment. Plan 1. Since the patient cannot have ECT and she does not have inpatient level of care criteria for inpatient psychiatry she should be discharged and transfer her care to her outpatient providers. 2. Continue Lexapro and Xanax as prescribed. 3. Follow-up treatment with Dr. Gloria Richard. I informed her about the patient status. I spent __30____ minutes with the patient and/or on the patient floor today, greater than?50% of which was spent counseling/coordinating care. Patient educated on: diagnosis and therapeutic strategies Informed Consent: understands
== END 2021-11-30 20:00 | disposition short-term general hospital (02) | DRG 881 ==
LOC: HO.ED 17:05 → HO.PGERI 20:01
PROVIDERS: Family Medicine; Admitting Provider Psychiatry & Neurology Psychiatry; Emergency Provider Emergency Medicine Emergency Medical Services; PCP Internal Medicine; Visit Provider Psychiatry & Neurology Psychiatry
PROC: (CPT 90870; principal; 2021-11-30 08:00)
DX: F32.9 Major depressive disorder, single episode, unspecified (principal); I21.4 Non-ST elevation (NSTEMI) myocardial infarction; N39.0 Urinary tract infection, site not specified; E44.1 Mild protein-calorie malnutrition; Z68.1 Body mass index [BMI] 19.9 or less, adult; I95.1 Orthostatic hypotension; E53.8 Deficiency of other specified B group vitamins; B96.1 Klebsiella pneumoniae [K. pneumoniae] as the cause of diseases classified elsewhere; C57.4 Malignant neoplasm of uterine adnexa, unspecified; Z20.822 Contact with and (suspected) exposure to COVID-19; Z88.0 Allergy status to penicillin; Z79.899 Other long term (current) drug therapy
CPT/HCPCS: 36415; 70450; 71045; 80048; 80053; 80061; 80143; 80179; 80307; 81001; 82077; 82550; 82607; 82746; 83516; 83605; 83690; 84443; 84484; 85025; 86340; 87040; 87086; 87088; 87186; 87635; 90870; 93005; 99285; J0330; J2405; J2550

== ENCOUNTER 2021-11-30 19:38 | Inpatient (IN) | payer MEDICARE, SELFPAY ==
--- NOTE | 2021-11-30 | ECG_ITS ---
Test Reason : elev tn-I Blood Pressure : / mmHG Vent. Rate : 070 BPM Atrial Rate : 070 BPM P-R Int : 150 ms QRS Dur : 086 ms QT Int : 404 ms P-R-T Axes : 070 076 072 degrees QTc Int : 436 ms Normal sinus rhythm Nonspecific T wave abnormality Possible Anterolateral infarct (cited on or before 30-NOV-2021) Abnormal ECG When compared with ECG of 30-NOV-2021 19:00, Nonspecific T wave abnormality now evident in Lateral leads Referred By: Jennifer Croft Electronically Signed By:KAILEE ADAMS
[2021-11-30 21:35] LABS: Delay - Chemistry DELAY
[2021-11-30 22:14] VITALS: BP 101/45; PULSE 62; RESP 16; TEMP 36.8; O2SAT 97
[2021-11-30 22:18] VITALS: BMI 18.2
[2021-11-30 23:47] VITALS: BP 98/48; PULSE 67; RESP 16; TEMP 36.9; O2SAT 96
[2021-12-01] VITALS (9 sets, daily range): BP systolic 99–114; BP diastolic 44–58; PULSE 50–70; RESP 14–20; TEMP 36.3–36.8; O2SAT 94–97
[2021-12-01] MEDS: ALPRAZolam 0.5 MG TABLET PO ×2 (00:03→21:58)
[2021-12-01 00:12] LABS: INTERNATIONAL NORM RATIO 1.1 (0.9-1.1); Prothrombin Time 13.1 SEC (10.0-13.1)
[2021-12-01 00:15] LABS: PTT Heparin Drip 28.3 SEC (53-77.9)
[2021-12-01] MEDS: Heparin Sodium,Porcine 5,000 UNIT/ML VIAL 3100 UNIT IVPUSH (00:17)
[2021-12-01] MEDS: Heparin Sodium,Porcine/1/2NS 25,000 UNIT/250 ML IV.SOLN 6.34 UNIT IVCONT (00:19)
[2021-12-01 00:28] LABS: Troponin-I High Sensitivity 1633.2 ng/L (<3.5-17.0)
[2021-12-01 01:38] LABS: Delay - Coag DELAY
[2021-12-01 06:42] LABS: Hematocrit 36.2 % (37.0-47.0); Hemoglobin 11.7 g/dl (12.0-16.0); Mean Corpuscular HGB Conc 32.3 g/dl (31.0-35.0); Mean Corpuscular Hemoglobin 30.1 pg (27.0-33.0); Mean Corpuscular Volume 93.1 fL (80.0-98.0); Mean Platelet Volume 9.4 fL (9.4-12.3); Platelet Count 254 X10*3/uL (160-400); Red Blood Count 3.89 X10*6/uL (4.20-5.50); Red Cell Distribution Width 13.8 % (11.0-16.0); White Blood Count 6.9 X10*3/uL (4.8-10.8)
[2021-12-01 06:49] LABS: INTERNATIONAL NORM RATIO 1.1 (0.9-1.1); Prothrombin Time 12.9 SEC (10.0-13.1)
[2021-12-01 06:52] LABS: PTT Heparin Drip 70.9 SEC (53-77.9)
--- NOTE | 2021-12-01 07:00 | CA_ITS ---
Transthoracic Echocardiogram Patient (Last, First, Middle): Deepa Beavers, Gender: Female Date of : 1940 Age: 80 Procedure Date: 12/01/2021 Procedure Type: Transthoracic Echocardiogram [place] [facility] [place] Height: 157.48 cm Weight: 51.26 kg BSA: 1.50 m2 Heart Rate: 68 bpm BP: 88 / 45 mmHg Behavioral Therapist: Referring MD: Jennifer Croft MD Manager Customer: Johnathon Thrasher MD Symptoms: nstemi Study Quality: Fair ECG Rhythm: Sinus Conclusions: - 1. [id number] LV systolic dysfunction with wall motion abnormality in the distal segments which could represent stress induced cardiomyopathy or LAD territory ischemia 2. Normal cardiac valvular Doppler 3. Normal RV systolic pressure with normal right atrial pressures 4. No pericardial effusion Findings Left Ventricle Normal left ventricular cavity size. There is normal left ventricular wall thickness. The left ventricular systolic function is mild to moderately decreased. The visually estimated ejection fraction is between 40-45%. Spectral Doppler is indicative of an impaired relaxation filling pattern. E/E prime ratio is between 8 and 15 consistent with indeterminate filling pressures. Wall Motion Rest Echo Findings The entire apex is hypokinetic. All other scored wall segments showed normal motion. Right Ventricle Normal right ventricular cavity size and systolic function. Atria Both atria are normal in size. There is no evidence of interatrial shunt. Aortic Valve The aortic valve was not well visualized. There is mild thickening of the aortic valve. There is no aortic valve stenosis. There is no aortic valve regurgitation. Mitral Valve There is mild anterior and posterior mitral leaflet thickening. There is trace mitral valve regurgitation. There is no mitral valve stenosis. Pulmonic Valve The pulmonic valve was not well visualized. Tricuspid Valve Likely normal tricuspid valve structure and function. There is trace tricuspid valve regurgitation. The right ventricular systolic pressure is normal. The right ventricular systolic pressure is 32 mmHg. Normal right atrial pressure. There is no evidence of pulmonary hypertension. Great Vessels All visible segments of the aorta are normal in size. The pulmonary artery was not well visualized. Venous The inferior vena cava is normal in size and collapses greater than 50% with inspiration. Pericardium/Pleural There is no evidence of pericardial effusion. Prior Study Comparison No prior study available for comparison. Measurements 2D Linear Measurements IVSd: 1.04 0.6-0.9/0.6-1.0 cm LVIDd: 4.01 3.9-5.3/4.2-5.9 cm LVIDd Index: 2.67 2.4-3.2/2.2-3.1 cm/m2 LVIDs: 3.17 2.0-3.6 cm LVPWd: 0.94 0.7-1.1 cm Ao Root: 3.10 2.1-3.5 cm LA Diam: 2.80 2.7-3.8/3.0-4.0 cm LAIDs Index: 1.87 1.5-2.3 cm/m2 LV Mass: 156.23 67-162/88-224 g LV Mass Index: 104.16 43-95/49-115 g/m2 LVOT Diam: 1.90 3.0+(-)1.3 cm 2D Systolic Function EF 4C: 45.80 >55% EF 2C: 31.90 >55% Mitral Valve MV Pk E: 0.70 MV PK A: 0.94 MV Decel Time: 233.00 E/A: 0.70 E'Lateral: 7.07 E'Medial: 5.22 E/E' Med: 13.50 E/E' Lat: 9.90 PHT: 68.00 MVA PHT: 3.24 Decel Centre: 3.01 Aortic Valve AoV Pk Jeffery: 1.57 AoV Mn Jeffery: 1.04 AoV VTI: 0.41 AoV Pk Grad: 10.00 Aov Mn Grad: 5.00 JACINTO Cont.VTI: 2.18 LVOT LVOT Pk Jeffery: 1.20 LVOT Mn Jeffery: 0.87 LVOT VTI: 0.31 LVOT Pk Grad: 6.00 LVOT Mn Grad: 3.00 LVOT Diam: 1.90 LVOT Area: 2.84 Diastolic Function MV Pk E: 0.70 MV Pk A: 0.94 E/A: 0.70 E'Medial: 5.22 E/E' Med: 13.50 E' Laterial: 7.07 E/E' Lat: 9.90 Right Ventricle TAPSE (mm): 29.00 TVS' Jeffery: 12.00 Tricuspid Valve TR Pk Jeffery: 2.67 TR Pk Grad: 29.00 RA Press: 3.00 RVSP: 32.00 Great Vessels Aorta Ao Root-2D: 3.10 2.0-3.7 cm Ao Asc: 3.50 2.1-3.4 cm Pulmonary Valve PV Pk Jeffery: 0.89 Peak PV Grad: 3.00 Updated in Other Vendor System with Status of Final Johnathon Thrasher MD electronically signed on 12/01/2021 9:12:23 AM with status of Final
[2021-12-01 07:02] LABS: Anion Gap 14 (12-20); Blood Urea Nitrogen 9 mg/dL (9-16); Calcium 8.6 mg/dL (8.4-10.2); Carbon Dioxide 29 mmol/L (22-29); Chloride 103 mmol/L (96-108); Creatinine Clr Calc Pharmacy 58.5; Estimated Glomerular Filt Rate > 60; Glucose Random 80 mg/dL (60-115); Potassium 4.2 mmol/L (3.3-5.1); Sodium 142 mmol/L (135-145)
--- NOTE | 2021-12-01 10:02 | PM.CNCAR ---
History of Present Illness History of Present Illness Date of Service: 12/01/21 Requesting physician: Jennifer Croft Consult reason: troponin elevation Chief complaint: Nstemi Narrative: I was requested to see Deepa in cardiology consultation today for elevated troponins and abnormal EKG. Deepa is a 80-year-old woman who was admitted to Behavioral Unit for depression and to undergo ECT treatment. She has no prior significant cardiac issues and had cardiac catheterization 2020 as well as echocardiogram in 2020 for symptoms of exertional chest discomfort. Cardiac catheterization at shown normal coronary arteries and echocardiogram showed normal LV systolic function. At that time she is to see Dr. Squires at [facility] and all her cardiac medications including metoprolol were discontinued. She says for the last 6-9 months she has been trouble with her psychiatric issues including depression and has had significant weight loss. Therefore she was electively admitted on Tuesday for ACT as an outpatient. She has no suicidal ideation. Patient underwent ECT yesterday and following that developed low blood pressure she was also complaining of retrosternal discomfort which she described as related to GERD. She was then noted to be hypertensive along with orthostatic hypotension and was felt this was due to hypovolemia due to dehydration. She has had poor intake in the last few days to weeks. She is also noted to have significantly elevated troponin. EKG then showed poor R-wave progression. She was therefore [place] [facility] [place] been manages acute coronary syndrome which is appropriate. Troponin since then has down trended. She has improved with IV fluid and a blood pressure has stabilized. She has had no overnight arrhythmias. She denies any chest discomfort at this point time. Echocardiogram done this morning is suggestive of stress-induced cardiomyopathy with [id number] LV systolic dysfunction with apical segment hypokinesis. She denies any shortness of breath, palpitations, lightheadedness at this point in time. Review of Systems Constitutional: Constitutional: Reports no additional constitutional complaints Eyes: Eyes: Reports no additional eye complaints Cardiovascular: Cardiovascular: Reports chest pain, Denies syncope, Reports lightheadedness, Denies Loss of Consciousness, Denies palpitations and Denies dyspnea Respiratory: Respiratory: Denies dyspnea Gastrointestinal: Gastrointestinal: Reports no additional gastrointestinal complaints Musculoskeletal: Musculoskeletal: Reports no additional musculoskeletal complaints Integumentary/Breasts: Skin/Breast: Reports system reviewed and no additional complaints, except as docu Neurologic: Reports system reviewed and no additional complaints, except as documented and Denies syncope Psychiatric: Psychiatric: Reports anxiety and Reports depression Endocrine: Endocrine: Denies palpitations Hematologic/Lymphatic: Hematologic/Lymphatic: Reports no additional hematologic/lymphatic complaints Allergic/Immunologic: Allergic/Immunologic: Reports no additional allergic/immunologic complaints [facility] Past Medical History Medical History Anxiety Insomnia Major depressive disorder Social History Social History Household Members: None Housing: Apartment Do you presently have visiting nurse or other home services: No Patient Tobacco Use Status: Never used Tobacco Use of substances other than those prescribed or required for medical reasons: No Currently Displaying Signs/Symptoms of Drug Intoxication Withdrawal: No Advance Directives: No Do you have thoughts of harming others: None Do you have a plan to hurt others: No Plan Recently lost weight without trying: Unsure Eating poorly because of decreased appetite: Yes Nutrition Risks: No Nutritional Risk Patient : No service: No Sexual orientation: Straight/Heterosexual Meds Allergies Allergy/AdvReac Type Severity Reaction Status Date / Time amoxicillin Allergy Rash Verified 11/25/21 13:08 Active Medications: Current Medications Acetaminophen (Acetaminophen 325 Mg Tablet) 650 mg PO Q6H PRN PRN Reason: Pain, Mild (Pain Scale 1-3) Al Hydroxide/Mg Hydroxide (Magnesium Hydrox/Alum Hydrox 30 Ml Oral.Susp) 30 ml PO Q4H PRN PRN Reason: Heartburn/Nausea Alprazolam (Alprazolam 0.25 Mg Tablet) 0.25 mg PO BID@0900,1500 [facility] Alprazolam (Alprazolam 0.5 Mg Tablet) 0.5 mg PO BEDTIME ROBBY Last Admin: 12/01/21 00:03 Dose: 0.5 mg Aspirin (Aspirin 81 Mg Tab.Chew) 81 mg PO DAILY ROBBY Atorvastatin Calcium (Atorvastatin Calcium 80 Mg Tablet) 80 mg PO BEDTIME [facility] Last Admin: 12/01/21 00:04 Dose: Not Given Cyanocobalamin (Cyanocobalamin (Vitamin B-12) 1,000 Mcg/Ml Vial) 1,000 mcg IM DAILY ROBBY Stop: 12/07/21 09:01 Cyanocobalamin (Cyanocobalamin (Vitamin B-12) 1,000 Mcg/Ml Vial) 1,000 mcg IM Q7D [facility] Stop: 01/04/22 08:31 Escitalopram Oxalate (Escitalopram Oxalate 20 Mg Tablet) 20 mg PO DAILY [facility] Heparin Sodium (Porcine) (Heparin Sodium,Porcine 5,000 Unit/Ml Vial) 2,000 unit IVPUSH PROTOCOL BOLUS PRN; Protocol PRN Reason: 40 unit/kg - Heparin Protocol Heparin Sodium (Porcine) (Heparin Sodium,Porcine 5,000 Unit/Ml Vial) 4,100 unit IVPUSH PROTOCOL BOLUS PRN; Protocol PRN Reason: 80 unit/kg - Heparin Protocol Hydroxyzine HCl (Hydroxyzine Hcl 25 Mg Tablet) 25 mg PO Q6H PRN PRN Reason: anxiety Heparin Sodium/Sodium Chloride (Heparin Sodium,Porcine/1/2ns) 25,000 unit in 250 mls @ 0 mls/hr IVCONT .Q0M [facility]; Protocol Last Titration: 12/01/21 07:27 Dose: 12 units/kg/hr, 6.34 mls/hr Ceftriaxone Sodium 1 gm/ (Sodium Chloride) 50 mls @ 100 mls/hr IV Q24H [facility] Last Admin: 12/01/21 00:05 Dose: Not Given Ondansetron HCl (Ondansetron Hcl 4 Mg/2 Ml Vial) 4 mg IVPUSH Q8H PRN PRN Reason: Nausea and Vomiting Sodium Chloride (0.9 % Sodium Chloride Flush 3 Ml Syringe) 3 ml IVFLUSH QSHIFT [facility] Last Admin: 12/01/21 01:39 Dose: Not Given Trazodone HCl (Trazodone Hcl 50 Mg Tablet) 50 mg PO BEDTIME PRN PRN Reason: insomnia Home Medications Medication Instructions Recorded Confirmed Last Taken Type alprazolam 0.25 mg tablet 0.125 mg PO Q6H PRN Anxiety 11/30/21 11/30/21 Unknown History alprazolam 0.25 mg tablet 0.25 mg PO BID@0900,1500 11/30/21 11/30/21 Unknown History alprazolam 0.5 mg tablet 0.5 mg PO BEDTIME 11/30/21 11/30/21 Unknown History aluminum hydrox-magnesium carb 160 2 tab PO QID PRN Dyspepsia 11/30/21 11/30/21 Unknown History mg-105 mg chewable tablet cyanocobalamin (vitamin B-12) 1,000 mcg IM DAILY 11/30/21 11/30/21 Unknown History 1,000 mcg/mL injection solution escitalopram oxalate 20 mg tablet 20 mg PO DAILY 11/30/21 11/30/21 Unknown History famotidine 20 mg tablet 20 mg PO TIDAC PRN Acid Reflux 11/30/21 11/30/21 Unknown History hydroxyzine HCl 25 mg tablet 25 mg PO Q6H PRN Anxiety 11/30/21 11/30/21 Unknown History sulfamethoxazole 800 1 tab PO BID 11/30/21 11/30/21 Unknown History mg-trimethoprim 160 mg tablet (Bactrim DS) trazodone 50 mg tablet 50 mg PO BEDTIME PRN Sleep 11/30/21 11/30/21 Unknown History wheat dextrin-calcium 2 ea PO DAILY PRN Constipation 11/30/21 11/30/21 Unknown History gluc,lact-aspartam 3 gram-200mg/6 gram oral powd Physical Exam Vital Signs: Vital Signs: Last Vital Signs Temp 97.7 F 12/01/21 07:17 Pulse 70 12/01/21 07:17 Resp 20 12/01/21 07:17 BP 114/47 L 12/01/21 07:17 Pulse Ox 97 12/01/21 07:17 O2 Del Method 12/01/21 07:17 BMI result Body Mass Index 18.2 Const: General: cooperative, comfortable, no acute distress, alert and awake Nutritional Appearance: underweight Orientation/consciousness: patient oriented x3 Limitations: no limitations HEENT: Head: Yes normocephalic and Yes atraumatic Neck: Neck: Yes trachea midline, Yes supple and Yes no JVD Chest: Chest palpation & inspection: normal inspection of the chest Resp: Effort & Inspection: normal respiratory effort Auscultation: clear to auscultation bilaterally Cardio: Jugular venous distension: no JVD Palpation: normal PMI Rate: regular rate Rhythm: regular rhythm Heart sounds: S1 normal heart sound present, S2 normal heart sound present, no click, no gallops, no murmurs and no rubs GI: Auscultation: normal bowel sounds Skin: General skin exam: no rashes or lesions noted Neuro: General: patient oriented x3 and no focal motor deficits Extrem: General: Yes no clubbing, cyanosis or edema Psych: Affect: Anxious affect present Objective Labs and Meds Result diagrams: 12/01/21 06:27 12/01/21 06:27 Lab results: Laboratory Results - last 24 hr 11/30/21 11/30/21 11/30/21 20:50 23:39 23:39 WBC RBC Hgb Hct MCV MCH MCHC RDW Plt Count MPV Absolute Nucleated RBC Nucleated RBC % (auto) PT 13.1 INR 1.1 aPTT Heparin Protocol 28.3 L Coag Specimen Comment DELAY Sodium Potassium Chloride Carbon Dioxide Anion Gap BUN Creatinine Estim Creat Clear Calc Estimated GFR Random Glucose Calcium Troponin I High Sens 1633.2 H* Specimen Comment DELAY 12/01/21 12/01/21 12/01/21 06:27 06:27 06:27 WBC 6.9 RBC 3.89 L Hgb 11.7 L Hct 36.2 L MCV 93.1 MCH 30.1 MCHC 32.3 RDW 13.8 Plt Count 254 MPV 9.4 Absolute Nucleated RBC 0.000 Nucleated RBC % (auto) 0.0 PT 12.9 INR 1.1 aPTT Heparin Protocol Coag Specimen Comment Sodium 142 Potassium 4.2 Chloride 103 Carbon Dioxide 29 Anion Gap 14 BUN 9 Creatinine 0.65 Estim Creat Clear Calc 58.5 Estimated GFR > 60 Random Glucose 80 Calcium 8.6 Troponin I High Sens Specimen Comment 12/01/21 06:27 WBC RBC Hgb Hct MCV MCH MCHC RDW Plt Count MPV Absolute Nucleated RBC Nucleated RBC % (auto) PT INR aPTT Heparin Protocol 70.9 D Coag Specimen Comment Sodium Potassium Chloride Carbon Dioxide Anion Gap BUN Creatinine Estim Creat Clear Calc Estimated GFR Random Glucose Calcium Troponin I High Sens Specimen Comment Assessment and Plan (1) NSTEMI (non-ST elevated myocardial infarction): Status: Acute Patient with elevated troponins and abnormal EKG with echo findings most consistent with takotsubo cardiomyopathy, most likely induced by her ECT therapy due to associated catecholamine release. Less likely that this is acute coronary syndrome related to plaque rupture, Given her prior normal cardiac catheterization as well as her symptoms and echo findings. Will treat her with IV heparin for 48 hours. Continue with aspirin and statin therapy for now. Will also start on metoprolol therapy after adequate volume repletion, see below. We discussed about management of stress-induced cardiomyopathy. Usually takes about 7-10 days for complete resolution of LV systolic dysfunction and wall motion abnormality. Request echocardiogram limited in about 10-14 days. If she persists with wall motion abnormality, may require ischemic workup at that point in time. Management was discussed in details. We discussed about prevention of recurrence of stress-induced cardiomyopathy with metoprolol therapy. She understands and agrees. Currently I do not think there is indication for cardiac catheterization. Will continue to monitor clinically. (2) Orthostatic hypotension: Status: Acute Patient low blood pressure with orthostatic changes related to significant hypovolemia. This has been corrected with IV fluids. I still think she is hypovolemic. Will continue to hydrate her with IV normal saline 1 L over the next 10 hours. Continue monitor blood pressure and monitor orthostatic changes later in the evening. As a blood pressure remains stable will start on metoprolol therapy for myocardial protection and to prevent recurrent stress-induced cardiomyopathy in the future. Will follow with you. Thank you for allowing us to partake in the care Procedures Date of Service Date of Service: 12/01/21
[2021-12-01] MEDS: Aspirin 81 MG TAB.CHEW PO (10:18)
[2021-12-01] MEDS: Metoprolol Tartrate 12.5 MG HALFTAB PO ×3 (10:19→21:58)
[2021-12-01] MEDS: Escitalopram Oxalate 20 MG TABLET PO (10:19)
[2021-12-01] MEDS: ALPRAZolam 0.25 MG TABLET PO ×2 (10:19→15:19)
[2021-12-01] MEDS: Cyanocobalamin (Vitamin B-12) 1,000 MCG/ML VIAL 1000 MCG IM (10:39)
[2021-12-01] MEDS: 0.9 % Sodium Chloride Flush 3 ML SYRINGE IVFLUSH (10:51)
--- NOTE | 2021-12-01 11:34 | P.PNIM_ITS ---
Subjective Subjective Date of Service: 12/01/21 Interval History: Tn-I 4800->5430 no lightheadedness no chest pain c/o GERD anxious Review of Systems Review of Systems: Yes all other systems are reviewed and are negative Physical Exam Vital Signs: Vital Signs: Last Vital Signs Temp 98 F 12/01/21 11:17 Pulse 59 12/01/21 11:17 Resp 20 12/01/21 11:17 BP 110/56 L 12/01/21 11:17 Pulse Ox 97 12/01/21 11:17 O2 Del Method 12/01/21 11:17 BMI result Body Mass Index 18.2 Gen: in no acute distress, mild malnourishment HEENT: sclera anicteric, moist mucus membranes Neck: supple Lungs: clear to auscultation bilaterally Heart: regular rate and rhythm, no murmurs Abd: soft, non-tender, non-distended Ext: no edema Skin: warm/well-perfused Neuro: alert and oriented x3, no focal findings Psych: anxious Objective Data Active Medications Acetaminophen (Acetaminophen 325 Mg Tablet) 650 mg PO Q6H PRN PRN Reason: Pain, Mild (Pain Scale 1-3) Al Hydroxide/Mg Hydroxide (Magnesium Hydrox/Alum Hydrox 30 Ml Oral.Susp) 30 ml PO Q4H PRN PRN Reason: Heartburn/Nausea Alprazolam (Alprazolam 0.25 Mg Tablet) 0.25 mg PO BID@0900,1500 [facility] Last Admin: 12/01/21 10:19 Dose: 0.25 mg Documented By: KURT Alprazolam (Alprazolam 0.5 Mg Tablet) 0.5 mg PO BEDTIME [facility] Last Admin: 12/01/21 00:03 Dose: 0.5 mg Documented By: DON Aspirin (Aspirin 81 Mg Tab.Chew) 81 mg PO DAILY [facility] Last Admin: 12/01/21 10:18 Dose: 81 mg Documented By: KURT Atorvastatin Calcium (Atorvastatin Calcium 80 Mg Tablet) 80 mg PO BEDTIME [facility] Last Admin: 12/01/21 00:04 Dose: Not Given Documented By: DON Non-Admin Reason: Patient Refused Cyanocobalamin (Cyanocobalamin (Vitamin B-12) 1,000 Mcg/Ml Vial) 1,000 mcg IM DAILY [facility] Stop: 12/07/21 09:01 Last Admin: 12/01/21 10:39 Dose: 1,000 mcg Documented By: KURT Cyanocobalamin (Cyanocobalamin (Vitamin B-12) 1,000 Mcg/Ml Vial) 1,000 mcg IM Q7D [facility] Stop: 01/04/22 08:31 Escitalopram Oxalate (Escitalopram Oxalate 20 Mg Tablet) 20 mg PO DAILY [facility] Last Admin: 12/01/21 10:19 Dose: 20 mg Documented By: KURT Heparin Sodium (Porcine) (Heparin Sodium,Porcine 5,000 Unit/Ml Vial) 2,000 unit IVPUSH PROTOCOL BOLUS PRN; Protocol PRN Reason: 40 unit/kg - Heparin Protocol Heparin Sodium (Porcine) (Heparin Sodium,Porcine 5,000 Unit/Ml Vial) 4,100 unit IVPUSH PROTOCOL BOLUS PRN; Protocol PRN Reason: 80 unit/kg - Heparin Protocol Hydroxyzine HCl (Hydroxyzine Hcl 25 Mg Tablet) 25 mg PO Q6H PRN PRN Reason: anxiety Heparin Sodium/Sodium Chloride (Heparin Sodium,Porcine/1/2ns) 25,000 unit in 250 mls @ 0 mls/hr IVCONT .Q0M [facility]; Protocol Last Titration: 12/01/21 07:27 Dose: 12 units/kg/hr, 6.34 mls/hr Documented By: THEE Co-signed By: DON Ceftriaxone Sodium 1 gm/ (Sodium Chloride) 50 mls @ 100 mls/hr IV Q24H [facility] Last Admin: 12/01/21 00:05 Dose: Not Given Documented By: DON Non-Admin Reason: Patient Refused Sodium Chloride (Ns) 1,000 mls @ 100 mls/hr IVCONT .Q10H [facility] Metoprolol Tartrate (Metoprolol Tartrate 12.5 Mg Halftab) 12.5 mg PO Q6H [facility]; Protocol Last Admin: 12/01/21 10:19 Dose: 12.5 mg Documented By: KURT Ondansetron HCl (Ondansetron Hcl 4 Mg/2 Ml Vial) 4 mg IVPUSH Q8H PRN PRN Reason: Nausea and Vomiting Sodium Chloride (0.9 % Sodium Chloride Flush 3 Ml Syringe) 3 ml IVFLUSH QSHIFT [facility] Last Admin: 12/01/21 10:51 Dose: 3 ml Documented By: KURT Trazodone HCl (Trazodone Hcl 50 Mg Tablet) 50 mg PO BEDTIME PRN PRN Reason: insomnia Labs CBC & Chem 7: 12/01/21 06:27 12/01/21 06:27 Labs: Laboratory Results - last 24 hr 11/30/21 11/30/21 12/01/21 20:50 23:39 06:27 MCV MCH MCHC RDW Plt Count MPV Absolute Nucleated RBC Nucleated RBC % (auto) PT 13.1 INR 1.1 aPTT Heparin Protocol 28.3 L Coag Specimen Comment DELAY Anion Gap 14 Estim Creat Clear Calc 58.5 Estimated GFR > 60 Random Glucose 80 Calcium 8.6 Specimen Comment DELAY 12/01/21 12/01/21 12/01/21 06:27 06:27 06:27 MCV 93.1 MCH 30.1 MCHC 32.3 RDW 13.8 Plt Count 254 MPV 9.4 Absolute Nucleated RBC 0.000 Nucleated RBC % (auto) 0.0 PT 12.9 INR 1.1 aPTT Heparin Protocol 70.9 D Coag Specimen Comment Anion Gap Estim Creat Clear Calc Estimated GFR Random Glucose Calcium Specimen Comment Assessment and Plan (1) Orthostatic hypotension: Status: Acute Plan hospital d#2 80yo F with anxiety, depression, GERD, and recently diagnosed adnexal mass admitted to geriatric psychiatry unit for major depression with anorexia/weight loss, s/p ECT 11/30/21.? Hospitalists re-consulted for hypotension.? She had orthostatic hypotension and was found to have elevated Tn-I to 2520.8 and so was transferred to the [facility] [place] # NSTEMI - continue ASA + atorvastatin + heparin (48 hr) out of precaution, though [place] cardiac [place] [facility] [place] Cardiology consulted. most likely takotsubo cardiomyopathy; start metoprolol. repeat TTE in 10-14 days. # orthostatic hypotension - give IV fluids and recheck orthostatic afterwards # vitamin B12 deficiency - checking intrinsic factor and parietal cell antibodies and starting parenteral repletion with 1000 mcg IM daily x 7d then weekly # UTI - start SMX/TMP for Klebsiella UTI [has mild rash with amoxicillin, not hives, but requests not to take ceftriaxone] # depression/anxiety - continue escitalopram, alprazolam, prn trazodone # mild protein/calorie malnutrition - supplementation # VTE ppx: heparinization In my clinical judgment, the patient requires continued hospitalization for the following reasons: IV heparinization Quality Stroke Does the patient have a stroke diagnosis?: No VTE Prior VTE?: No VTE Risk Level:: Medical - moderate - high VTE Device Contraindication: N/A - Device Ordered VTE Drug Contraindication: N/A - Med Ordered
--- NOTE | 2021-12-01 12:33 | MHC.CLN ---
F/U PT TRANSFERRED FROM [facility] TO [facility] [place] PLEASE SEE CLINICAL NUTRITION RISK AND ASSESSMENT DATED 11/26/21 IN ADDITION, NUTRITION CONSULT IN PROGRESS NOTES DATED 11/26/21 FOLLOWING WITH TEAM AND WILL PROVIDE SUPPORT NEEDED
[2021-12-01] MEDS: 0.9 % Sodium Chloride 1,000 ML 100 ML IVCONT (12:34)
[2021-12-01 13:17] LABS: PTT Heparin Drip 56.1 SEC (53-77.9)
--- NOTE | 2021-12-01 15:17 | MHC.CM.PN ---
met with pt who lives alone she is independent had no previous servceis she is covid vax x 3 has own ride home
[2021-12-01] MEDS: Sulfamethox/Trimeth 800/160 TABLET 1 TAB PO (15:19)
[2021-12-01] MEDS: Famotidine 20 MG TABLET PO (15:34)
[2021-12-01 16:57] LABS: Glucose, Whole Blood 91 mg/dL (60-115)
[2021-12-01] MEDS: Atorvastatin Calcium 80 MG TABLET PO (21:58)
[2021-12-02] MEDS: Sulfamethox/Trimeth 800/160 TABLET 1 TAB PO (00:32)
[2021-12-02] MEDS: Heparin Sodium,Porcine/1/2NS 25,000 UNIT/250 ML IV.SOLN 6.34 UNIT IVCONT (00:33)
[2021-12-02 03:40] VITALS: PULSE 55; RESP 20; TEMP 36.4; O2SAT 96
[2021-12-02] MEDS: Metoprolol Tartrate 12.5 MG HALFTAB PO ×2 (05:42→21:28)
[2021-12-02] MEDS: 0.9 % Sodium Chloride 1,000 ML 100 ML IVCONT (05:42)
[2021-12-02 06:10] LABS: PTT Heparin Drip 52.5 SEC (53-77.9)
[2021-12-02] MEDS: Heparin Sodium,Porcine/1/2NS 25,000 UNIT/250 ML IV.SOLN 7.39 UNIT IVCONT (07:43)
[2021-12-02] MEDS: Heparin Sodium,Porcine 5,000 UNIT/ML VIAL 2000 UNIT IVPUSH ×2 (07:45→15:21)
[2021-12-02] MEDS: 0.9 % Sodium Chloride Flush 3 ML SYRINGE IVFLUSH ×2 (07:50→15:25)
[2021-12-02 07:56] VITALS: BP 116/58; PULSE 48; RESP 16; TEMP 36.9; O2SAT 96
[2021-12-02] MEDS: ALPRAZolam 0.25 MG TABLET PO ×2 (08:19→15:24)
[2021-12-02] MEDS: Aspirin 81 MG TAB.CHEW PO (08:19)
[2021-12-02] MEDS: Cyanocobalamin (Vitamin B-12) 1,000 MCG/ML VIAL 1000 MCG IM (08:19)
[2021-12-02] MEDS: Escitalopram Oxalate 20 MG TABLET PO (08:19)
--- NOTE | 2021-12-02 11:24 | HO.PM.IMPN ---
Subjective Subjective Date of Service: 12/02/21 Interval History: Orthostasis resolved No chest pain No lightheadedness Never had dysuria or urinary urgency Review of Systems Review of Systems: Yes all other systems are reviewed and are negative Physical Exam Vital Signs: Vital Signs: Last Vital Signs Temp 98.4 F 12/02/21 07:56 Pulse 48 L 12/02/21 07:56 Resp 16 12/02/21 07:56 BP 116/58 L 12/02/21 07:56 Pulse Ox 96 12/02/21 07:56 O2 Del Method 12/02/21 07:56 BMI result Body Mass Index 18.2 Gen: in no acute distress, mild malnourishment HEENT: sclera anicteric, moist mucus membranes Neck: supple Lungs: clear to auscultation bilaterally Heart: regular rate and rhythm, no murmurs Abd: soft, non-tender, non-distended Ext: no edema Skin: warm/well-perfused Neuro: alert and oriented x3, no focal findings Psych: appropriate affect Objective Data Active Medications Acetaminophen (Acetaminophen 325 Mg Tablet) 650 mg PO Q6H PRN PRN Reason: Pain, Mild (Pain Scale 1-3) Al Hydroxide/Mg Hydroxide (Magnesium Hydrox/Alum Hydrox 30 Ml Oral.Susp) 30 ml PO Q4H PRN PRN Reason: Heartburn/Nausea Alprazolam (Alprazolam 0.25 Mg Tablet) 0.25 mg PO BID@0900,1500 [facility] Last Admin: 12/02/21 08:19 Dose: 0.25 mg Documented By: DONN Alprazolam (Alprazolam 0.5 Mg Tablet) 0.5 mg PO BEDTIME [facility] Last Admin: 12/01/21 21:58 Dose: 0.5 mg Documented By: ANAHI Aspirin (Aspirin 81 Mg Tab.Chew) 81 mg PO DAILY [facility] Last Admin: 12/02/21 08:19 Dose: 81 mg Documented By: DONN Atorvastatin Calcium (Atorvastatin Calcium 80 Mg Tablet) 80 mg PO BEDTIME [facility] Last Admin: 12/01/21 21:58 Dose: 80 mg Documented By: ANAHI Cyanocobalamin (Cyanocobalamin (Vitamin B-12) 1,000 Mcg/Ml Vial) 1,000 mcg IM DAILY [facility] Stop: 12/07/21 09:01 Last Admin: 12/02/21 08:19 Dose: 1,000 mcg Documented By: DONN Cyanocobalamin (Cyanocobalamin (Vitamin B-12) 1,000 Mcg/Ml Vial) 1,000 mcg IM Q7D [facility] Stop: 01/04/22 08:31 Escitalopram Oxalate (Escitalopram Oxalate 20 Mg Tablet) 20 mg PO DAILY [facility] Last Admin: 12/02/21 08:19 Dose: 20 mg Documented By: DONN Famotidine (Famotidine 20 Mg Tablet) 20 mg PO TIDAC PRN PRN Reason: Acid Reflux Last Admin: 12/01/21 15:34 Dose: 20 mg Documented By: KURT Heparin Sodium (Porcine) (Heparin Sodium,Porcine 5,000 Unit/Ml Vial) 2,000 unit IVPUSH PROTOCOL BOLUS PRN; Protocol PRN Reason: 40 unit/kg - Heparin Protocol Last Admin: 12/02/21 07:45 Dose: 2,000 unit Documented By: DONN Heparin Sodium (Porcine) (Heparin Sodium,Porcine 5,000 Unit/Ml Vial) 4,100 unit IVPUSH PROTOCOL BOLUS PRN; Protocol PRN Reason: 80 unit/kg - Heparin Protocol Hydroxyzine HCl (Hydroxyzine Hcl 25 Mg Tablet) 25 mg PO Q6H PRN PRN Reason: anxiety Heparin Sodium/Sodium Chloride (Heparin Sodium,Porcine/1/2ns) 25,000 unit in 250 mls @ 0 mls/hr IVCONT .Q0M ROBBY; Protocol Last Admin: 12/02/21 07:43 Dose: 14 units/kg/hr, 7.39 mls/hr Documented By: DONN Co-signed By: ANAHI Metoprolol Tartrate (Metoprolol Tartrate 12.5 Mg Halftab) 12.5 mg PO Q6H [facility]; Protocol Last Admin: 12/02/21 05:42 Dose: 12.5 mg Documented By: ANAHI Ondansetron HCl (Ondansetron Hcl 4 Mg/2 Ml Vial) 4 mg IVPUSH Q8H PRN PRN Reason: Nausea and Vomiting Sodium Chloride (0.9 % Sodium Chloride Flush 3 Ml Syringe) 3 ml IVFLUSH QSHIFT [facility] Last Admin: 12/02/21 07:50 Dose: 3 ml Documented By: DONN Trazodone HCl (Trazodone Hcl 50 Mg Tablet) 50 mg PO BEDTIME PRN PRN Reason: insomnia Trimethoprim/Sulfamethoxazole (Sulfamethox/Trimeth 800/160 Tablet) 1 tab PO Q12H [facility] Last Admin: 12/02/21 00:32 Dose: 1 tab Documented By: TRISTANJ Labs CBC & Chem 7: 12/01/21 06:27 12/01/21 06:27 Labs: Laboratory Results - last 24 hr 12/01/21 12/01/21 12/02/21 12:49 15:57 05:29 aPTT Heparin Protocol 56.1 D 52.5 L POC Glucose 91 TTE 12/01/21 1. [id number] LV systolic dysfunction with wall motion ? abnormality in the distal segments which could represent stress? induced cardiomyopathy or LAD territory ischemia ? 2.? Normal cardiac valvular Doppler? 3. Normal RV systolic pressure with normal right atrial pressures 4. No pericardial effusion ? Assessment and Plan (1) Orthostatic hypotension: Status: Acute Plan hospital d#3 80yo F with anxiety, depression, GERD, and recently diagnosed adnexal mass admitted to geriatric psychiatry unit for major depression with anorexia/weight loss, s/p ECT 11/30/21.? Hospitalists re-consulted for hypotension.? She had orthostatic hypotension and was found to have elevated Tn-I to 2520.8 and so was transferred to the [facility] # NSTEMI # stress-induced cardiomyopathy - continue ASA + atorvastatin + heparin (48 hr) out of precaution, though had normal cardiac cath at [facility] in June 2020. Cardiology consulted. most likely takotsubo cardiomyopathy; started metoprolol. repeat TTE in 10-14 days and if wall motion abnormality does not resolve, will need repeat ischemic workup. # orthostatic hypotension - resolved p IV fluids # vitamin B12 deficiency - checking intrinsic factor and parietal cell antibodies and starting parenteral repletion with 1000 mcg IM daily x 7d then weekly # asymptomatic bacteruria - diagnosed with Klebsiella [and diphtheroids] in urine but no symptoms; d/c SMX/TMP # depression/anxiety - continue escitalopram, alprazolam, prn trazodone # mild protein/calorie malnutrition - supplementation # VTE ppx: heparinization # dispo: anticipate home tomorrow. She was admitted to [facility] voluntarily for ECT but at this point cannot undergot ECT due to the cardiac issue above. She will need close Cardiology follow-up. In my clinical judgment, the patient requires continued hospitalization for the following reasons: IV heparinization Quality Stroke Does the patient have a stroke diagnosis?: No VTE Prior VTE?: No VTE Risk Level:: Medical - moderate - high VTE Device Contraindication: N/A - Device Ordered VTE Drug Contraindication: N/A - Med Ordered
[2021-12-02 11:43] VITALS: BP 121/58; PULSE 53; RESP 18; TEMP 36.5; O2SAT 95
--- NOTE | 2021-12-02 12:27 | PM.PNCARD ---
Subjective Subjective Date of Service: 12/02/21 <PARMINDER Soriano - Last Filed: 12/02/21 12:44> 12/02/21 <Johnathon Thrasher MD - Last Filed: 12/02/21 15:54> Principal diagnosis: Elevated Troponin, Stress CMP <PARMINDER Soriano - Last Filed: 12/02/21 12:44> Interval history: Seen at 1110. Pt reports feeling well. No chest pains, sob, palpitations, lightheadedness. Has been up in room and reports steadiness on feet. IV Heparin drip and IV fluid infusing. Discussed cardiac findings with her. Tele showing Sinus bradycardia, asymptomatic. <PARMINDER Soriano - Last Filed: 12/02/21 12:44> Review of Systems Review of Systems as above <PARMINDER Soriano - Last Filed: 12/02/21 12:44> Yes all other systems are reviewed and are negative <PARMINDER Soriano - Last Filed: 12/02/21 12:44> Physical Exam Vital Signs: Last Vital Signs Temp 97.7 F 12/02/21 11:43 Pulse 53 12/02/21 11:43 Resp 18 12/02/21 11:43 BP 121/58 L 12/02/21 11:43 Pulse Ox 95 12/02/21 11:43 O2 Del Method 12/02/21 11:43 BMI result Body Mass Index 18.2 <PARMINDER Soriano - Last Filed: 12/02/21 12:44> Const General: cooperative, healthy appearing, comfortable and no acute distress <PARMINDER Soriano - Last Filed: 12/02/21 12:44> Orientation/consciousness: patient oriented x3 <PARMINDER Soriano - Last Filed: 12/02/21 12:44> Neck Neck: Yes normal visual inspection and Yes no JVD <PARMINDER Soriano - Last Filed: 12/02/21 12:44> Resp Effort & Inspection: normal respiratory effort <PARMINDER Soriano - Last Filed: 12/02/21 12:44> Auscultation: clear to auscultation bilaterally, no crackles, no rales, no rhonchi and no wheezes <PARMINDER Soriano - Last Filed: 12/02/21 12:44> Cardio Jugular venous distension: no JVD <PARMINDER Soriano Last Filed: 12/02/21 12:44> Rate: regular rate <PARMINDER Soriano Last Filed: 12/02/21 12:44> Rhythm: regular rhythm <PARMINDER Soriano Last Filed: 12/02/21 12:44> Heart sounds: S1 normal heart sound present, S2 normal heart sound present, no gallops, no murmurs and no rubs <PARMINDER Soriano Last Filed: 12/02/21 12:44> Peripheral pulses: Peripheral pulses 2+ throughout <PARMINDER Soriano Last Filed: 12/02/21 12:44> GI Inspection: Yes normal to inspection <PARMINDER Soriano Last Filed: 12/02/21 12:44> Neuro General: patient oriented x3 <PARMINDER Soriano Last Filed: 12/02/21 12:44> Extrem General: Yes normal to inspection, No no pedal edema and No calf tenderness <PARMINDER Soriano Last Filed: 12/02/21 12:44> Psych Appearance: grossly normal <PARMINDER Soriano Last Filed: 12/02/21 12:44> Mental Status: mental status grossly normal <PARMINDER Soriano Last Filed: 12/02/21 12:44> Speech and movement: Normal speech and movement present <PARMINDER Soriano Last Filed: 12/02/21 12:44> Objective Labs and Meds Result diagrams: : 12/01/21 06:27 12/01/21 06:27 <PARMINDER Soriano - Last Filed: 12/02/21 12:44> Lab results: Laboratory Results - last 24 hr 12/01/21 12/01/21 12/02/21 12:49 15:57 05:29 aPTT Heparin Protocol 56.1 D 52.5 L POC Glucose 91 <Nancy Lewis PARMINDER Jones - Last Filed: 12/02/21 12:44> Progress Note: A&P Assessment and plan (1) NSTEMI (non-ST elevated myocardial infarction): Status: Acute <Nancy MoscosoPARMINDER velázquez - Last Filed: 12/02/21 12:44> Assessment and Plan: Pt has no known CAD. Had ECT for treatment of depression on 11/30/21. Hypotensive afterwards with reports of heartburn sensation. Noted to have orthostatic BP drop and treated with IV Fluids. Troponin elevated up to 2520.0 and then down to 1633 on recheck. EKG did show SR, Q V2, poor R wave progression. She was started on appropriate medical mgt for NSTEMI: Heparin drip for 48 hrs, aspirin, atorvastatin, metoprolol. Echo yesterday showed EF 40-45%, WMA distal segments, suggesting stress induced Cardiomyopathy. Prior Cardiac cath done 2020 showed normal coronaries. Her Troponin elevation is mostly likely related to Takotsubo CMP ( stress CMP) than coronary obstruction. No plan for cardiac cath at this time. Will need limited echo in 10-14 days to reeval EF and wall motion. If still abnormal, then may need ischemic eval at that time. Spent time going over all the above with her. She tells me she does Not want to take statin at home. Willing to take aspirin and metoprolol. tele shows sinus christopher with rates 44-60. Will reduce her metoprolol to 12.5 mg bid. After completion of 48 hrs Heparin drip, she can be discharged to home/ psych. We will arrange for outpt cardiology follow up and limited echo. <Nancy Debbie PARMINDER Jones - Last Filed: 12/02/21 12:44> Pt has no known CAD. Had ECT for treatment of depression on 11/30/21. Hypotensive afterwards with reports of heartburn sensation. Noted to have orthostatic BP drop and treated with IV Fluids. Troponin elevated up to 2520.0 and then down to 1633 on recheck. EKG did show SR, Q V2, poor R wave progression. She was started on appropriate medical mgt for NSTEMI: Heparin drip for 48 hrs, aspirin, atorvastatin, metoprolol. Echo yesterday showed EF 40-45%, WMA distal segments, suggesting stress induced Cardiomyopathy. Prior Cardiac cath done 2020 showed normal coronaries. Her Troponin elevation is mostly likely related to Takotsubo CMP ( stress CMP) than coronary obstruction. No plan for cardiac cath at this time. Will need limited echo in 10-14 days to reeval EF and wall motion. If still abnormal, then may need ischemic eval at that time. Spent time going over all the above with her. She tells me she does Not want to take statin at home. Willing to take aspirin and metoprolol. tele shows sinus christopher with rates 44-60. Will reduce her metoprolol to 12.5 mg bid. After completion of 48 hrs Heparin drip, she can be discharged to home/ psych. We will arrange for outpt cardiology follow up and limited echo. Patient seen and examined. Case discussed with Nancy Jones. Patient having no longer chest pain. Blood pressure is stable. Discussed with her about the findings and management plan. Noted to have slow heart rate. Will reduce metoprolol to 12.5 mg b.i.d.. Continue IV heparin for total of 48 hours. Continue aspirin. Also recommend strongly statin therapy were patient absolutely declines to take statins. If she remains stable can be discharged tomorrow. Clearance of psychiatric to be provided. Most likely takotsubo cardiomyopathy. Will require follow-up echocardiogram in 10 days. Set up an a follow-up in 2 weeks. <Johnathon Thrasher MD - Last Filed: 12/02/21 15:54> (2) Cardiomyopathy: Status: Acute <PARMINDER Soriano - Last Filed: 12/02/21 12:44> (3) Orthostatic hypotension: Status: Acute <PARMINDER oSriano - Last Filed: 12/02/21 12:44> Assessment and Plan: Improved with IV fluids. Was likely dehydrated. Has been up walking in room and denies any symptoms. <PARMINDER Soriano - Last Filed: 12/02/21 12:44> Time Spent With Patient Time: Total time spent is greater than 50% in coordination of care (as documented) at patient's floor/unit and/or counseling patient: 24 <PARMINDER Soriano - Last Filed: 12/02/21 12:44> Progress Note: Quality Stroke Does the patient have a stroke diagnosis?: No <PARMINDER Soriano - Last Filed: 12/02/21 12:44> Procedures Date of Service Date of Service: 12/02/21 <PARMINDER Soriano - Last Filed: 12/02/21 12:44>
[2021-12-02 14:08] LABS: PTT Heparin Drip 48.8 SEC (53-77.9)
--- NOTE | 2021-12-02 14:16 | MHC.CLN ---
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
[2021-12-02] MEDS: Heparin Sodium,Porcine/1/2NS 25,000 UNIT/250 ML IV.SOLN 8.45 UNIT IVCONT (15:14)
--- NOTE | 2021-12-02 15:22 | PC.NURSE ---
1500-report given to HANK Castro
[2021-12-02 15:49] VITALS: BP 134/63; PULSE 87; RESP 20; TEMP 36.9; O2SAT 98
--- NOTE | 2021-12-02 16:23 | MHC.CM.PN ---
Addendum entered by Oralia Lew 12/02/21 16:25: Patient [place] [facility] [place] She was scheduled for ECT. She developed ss of ACS and transferred to [facility] for telemetry. She will have a Psych eval to assist with Dispo. Patient will likely go home with out services and she will arrange for transport home. Original Note: Female 80 DX NSTEMI. No discharge today. Patient remains on Heparin gtt. DPO Home no services VS Acute care transfer via ALS.
[2021-12-02] MEDS: Famotidine 20 MG TABLET PO (16:41)
[2021-12-02 19:45] VITALS: BP 121/60; PULSE 72; RESP 18; TEMP 36.4; O2SAT 99
[2021-12-02] MEDS: ALPRAZolam 0.5 MG TABLET PO (21:28)
[2021-12-02 21:29] LABS: PTT Heparin Drip 91.4 SEC (53-77.9)
[2021-12-03] VITALS: BP 122/59; PULSE 61; RESP 18; TEMP 36.8; O2SAT 97
[2021-12-03] MEDS: Heparin Sodium,Porcine/1/2NS 25,000 UNIT/250 ML IV.SOLN 7.39 UNIT IVCONT (00:01)
[2021-12-03 03:48] VITALS: BP 115/56; PULSE 64; RESP 17; TEMP 36.9; O2SAT 98
[2021-12-03 06:27] LABS: PTT Heparin Drip 64.9 SEC (53-77.9)
[2021-12-03 08:00] VITALS: BP 121/56; PULSE 56; RESP 18; TEMP 36.7; O2SAT 96
[2021-12-03] MEDS: Cyanocobalamin (Vitamin B-12) 1,000 MCG/ML VIAL 1000 MCG IM (09:26)
[2021-12-03] MEDS: Escitalopram Oxalate 20 MG TABLET PO (09:27)
[2021-12-03] MEDS: Metoprolol Tartrate 12.5 MG HALFTAB PO (09:27)
[2021-12-03] MEDS: Aspirin 81 MG TAB.CHEW PO (09:27)
[2021-12-03] MEDS: ALPRAZolam 0.25 MG TABLET PO (09:27)
--- NOTE | 2021-12-03 10:30 | P.PNCA_ITS ---
Subjective Subjective Date of Service: 12/03/21 Principal diagnosis: Elevated Troponin, Stress CMP Interval history: Patient currently not having any symptoms. Blood pressure has been stable. Heart rate in the 90s dropped into the mid 40s. Currently in the 60s. No lightheadedness or syncope. Unfortunately she still getting IV heparin for unclear reason. Review of Systems Review of Systems Yes all other systems are reviewed and are negative Physical Exam Vital Signs: Last Vital Signs Temp 98.1 F 12/03/21 08:00 Pulse 56 12/03/21 08:00 Resp 18 12/03/21 08:00 BP 121/56 L 12/03/21 08:00 Pulse Ox 96 12/03/21 08:00 O2 Del Method 12/03/21 08:00 BMI result Body Mass Index 18.2 Const General: cooperative, healthy appearing, comfortable and no acute distress Orientation/consciousness: patient oriented x3 Neck Neck: Yes normal visual inspection and Yes no JVD Resp Effort & Inspection: normal respiratory effort Auscultation: clear to auscultation bilaterally, no crackles, no rales, no rhonchi and no wheezes Cardio Jugular venous distension: no JVD Rate: regular rate Rhythm: regular rhythm Heart sounds: S1 normal heart sound present, S2 normal heart sound present, no gallops, no murmurs and no rubs Peripheral pulses: Peripheral pulses 2+ throughout GI Inspection: Yes normal to inspection Neuro General: patient oriented x3 Extrem General: Yes normal to inspection, No no pedal edema and No calf tenderness Psych Appearance: grossly normal Mental Status: mental status grossly normal Speech and movement: Normal speech and movement present Objective Labs and Meds Result diagrams: 12/01/21 06:27 12/01/21 06:27 Lab results: Laboratory Results - last 24 hr 12/02/21 12/02/21 12/03/21 13:46 21:10 05:40 aPTT Heparin Protocol 48.8 L 91.4 H D 64.9 D Progress Note: A&P Assessment and plan (1) Stress-induced cardiomyopathy: Status: Acute Assessment and Plan: Patient transferred to [facility] [place] from [facility] due to low blood pressure subsequently noted elevated troponins echo findings consistent with stress- induced cardiomyopathy with normal coronary angiogram last year. Most likely induced because the stress of the procedure. This was discussed in details with the patient. For now will hold off on any clear ischemic workup. Will repeat ultrasound limited in 10-14 days and follow up in the clinic. Transient nature of stress-induced cardiomyopathy was discussed with the patient. Discuss that there is a small likelihood of acute coronary syndrome although she is currently not having active symptoms of ache in treated with medicines. Advise aspirin, metoprolol 12.5 mg b.i.d. and statins. She is adamant about not wanting to take statins. For now we can ambulator. If she is ambulating without any significant discomfort can be discharged home. She had a lot of questions and all of these were answered. Will follow up in the clinic in 2 weeks. Time Spent With Patient Time: Total time spent is greater than 50% in coordination of care (as documented) at patient's floor/unit and/or counseling patient: Progress Note: Quality Stroke Does the patient have a stroke diagnosis?: No Procedures Date of Service Date of Service: 12/03/21
--- NOTE | 2021-12-03 10:32 | MHC.CARE ---
Please consult CARE Team when Pt is medically clear.
--- NOTE | 2021-12-03 10:56 | PM.DS ---
DS: Providers Provider Date of Service: 12/03/21 Date of admission: 11/30/21 19:38 Date of discharge: 12/03/21 Primary care physician: Unknown Physician Consults: 11/30/21 18:48 Consult to Cardiology Stat Consulting Provider: Johnathon Thrasher Reason for consultation: nstemi 12/02/21 11:24 Consult to Psychiatry Routine Consulting Provider: Psych Covering Reason for consultation: discharge plan DS: Diagnosis Discharge Diagnosis (1) Stress-induced cardiomyopathy: Status: Acute (2) NSTEMI (non-ST elevated myocardial infarction): Status: Acute (3) Anxiety: Status: Acute (4) Major depressive disorder: Status: Acute DS: Summary Hospital Course Hospital Course: 80yo F with GERD, anxiety, and depression admitted to geriatric psychiatry unit for major depression with anorexia and weight loss.? Medical consultation done by Dr Gorman on 11/26/21 and reference is made to that document.? She was diagnosed with an adnexal mass at [facility] and had a [facility]-Onc consult during which surgery was recommended; she is seeking a 2nd opinion.? EKG was normal and she reportdly had a recent echo with LVEF of 55-60%.? She is currently on SMX/TMP for a Klebsiella UTI.? She underwent ECT today.? She has not been drinking or eating since then, and has been complaining of acid reflux/heartburn, for which she has prn Maalox and prn famotidine but has been refusing it. We were re-consulted because her BP was 82/45.? She does report lightheadedness/dizziness along with the heartburn.? She denies fever, chills, dyspnea, cough, chest pain, palpitations, abdominal pain, nausea, or vomiting. I repeated her BP manually and did orthostatics, which were: lying- 102/60, 80 sitting- 88/54, 84 standing- 76/52, 96 Hs-Tn-I was 2520.8.? EKG showed NSR with septal Q waves; no ST elevations or T wave inversions. She was given 325 mg of ASA and 80 mg of atorvastatin and [place] [facility] Echocardiogram? done; suggestive of stress-induced cardiomyopathy with [id number] LV systolic dysfunction with apical segment hypokinesis.? Started on heparin drip for 48 hours and seated on the day of discharge by Cardiology. Plan is for discharge and follow-up with echo in 14 days. She will start on metoprolol 12.5 b.i.d. and aspirin 81 mg daily she declined statin and Time Spent with Patient Time attestation: Total time spent providing and/or coordinating discharge services: Discharge coordination time: Greater than 30 minutes Quality: Safe Use of Opioids Does Pt have an Active Cancer Diagnosis on the Problem List?: No Quality: Stroke Does the patient have a stroke diagnosis?: No Physical Exam Vital Signs: Vital Signs: Last Vital Signs Temp 98.1 F 12/03/21 08:00 Pulse 56 12/03/21 08:00 Resp 18 12/03/21 08:00 BP 121/56 L 12/03/21 08:00 Pulse Ox 96 12/03/21 08:00 O2 Del Method 12/03/21 08:00 BMI result Body Mass Index 18.2 Const: Other: Awake alert no acute distress Resp: Other: Clear to auscultation bilaterally no rales rhonchi or wheezes Cardio: Other: No S4; positive S1-S2; no S3 murmurs or gallops GI: Other: Soft nontender nondistended normoactive bowel sounds Extrem: Other: No edema bilaterally DS: Data Data Completed and Pending Completed studies during hospitalization [Text1]: Procedures Other Electroconvulsive Therapy (11/25/21) Labs on day of discharge: Laboratory Results - last 24 hr 12/02/21 12/02/21 12/03/21 13:46 21:10 05:40 aPTT Heparin Protocol 48.8 L 91.4 H D 64.9 D Discharge Plan Discharge Patient Disposition: Home, Self-Care Discharge Diagnosis: Takotsubo cardiomyopathy Referrals: Physician,Unknown J [Primary Care Provider] - 1 Week Discharge Medications: New aspirin 81 mg Tablet,Chewable 81 mg PO DAILY Qty: 30 0RF metoprolol tartrate 25 mg tablet 12.5 mg PO BID Qty: 60 0RF Continued trazodone 50 mg Tablet 50 mg PO BEDTIME PRN (Reason: Sleep) sulfamethoxazole-trimethoprim [Bactrim DS] 800-160 mg Tablet 1 tab PO BID alprazolam 0.5 mg Tablet 0.5 mg PO BEDTIME alprazolam 0.25 mg Tablet 0.25 mg PO BID@0900,1500 alprazolam 0.25 mg Tablet 0.125 mg PO Q6H PRN (Reason: Anxiety) famotidine 20 mg Tablet 20 mg PO TIDAC PRN (Reason: Acid Reflux) cyanocobalamin (vitamin B-12) 1,000 mcg/mL Solution 1,000 mcg IM DAILY Rx Instructions: LAST DOSE 12/07/21 hydroxyzine HCl 25 mg Tablet 25 mg PO Q6H PRN (Reason: Anxiety) aluminum hydrox-magnesium carb 160-105 mg Tablet,Chewable 2 tab PO QID PRN (Reason: Dyspepsia) escitalopram oxalate 20 mg Tablet 20 mg PO DAILY wheat dextrin-iona glu,lac(asp) 3 gram-200 mg /6 gram Powder 2 ea PO DAILY PRN (Reason: Constipation) Discharge Orders: Discharge Order (Routine); Ordered 12/03/21 Ordered By: Ed Fitch Diet: Advance to usual diet Activity on Discharge: As tolerated Stand Alone Forms: Patient Portal Discharge page Care Plan Goals: Start metoprolol 12.5 mg twice daily and aspirin 81 mg daily Health Concerns: Follow-up with Dr. Thrasher 2 weeks. His office will call you with appointment Plan of Treatment: Resume all other previous medications Assessment: See discharge summary
--- NOTE | 2021-12-03 11:30 | MHC.CM.PN ---
IMM 12/01/21 Female 80 DX NSTEMI is discharged to home today. No home services are needed. Patient has arranged for transportation home.
[2021-12-03 11:33] VITALS: BP 109/54; PULSE 52; RESP 20; TEMP 36.9; O2SAT 98
--- NOTE | 2021-12-03 13:09 | MHC.CARE ---
CARE Team briefly met with Pt who reported she would like to be discharged home. Pt is not endorsing SI/HI/VH/AH. Pt has an outpatient psychiatrist Dr. Reinier Peng who she will follow up with post discharge. CARE Team spoke with Dr. Philippe- who has been following the case and Pt is appropriate to be discharged home . CARE Team communicated Dr. Fitch regarding recommendations to discharge home. Pt provided with [facility] Crisis information.
[2021-12-05 19:52] LABS: Parietal Cell Antibody <=20.0 Unit (<=20.0)
[2021-12-06 12:57] LABS: Intrinsic Factor Antibodies Negative (Negative)
--- OUTSIDE RECORDS SUMMARY | 2021-12-16 13:55 | XMS_ITS | Continuity of Care Document ---
:1940 Author Organization [facility] Oncology Address [address] [place] [phone]- Care Team Providers Name Role Phone Rizwana Tripp MD Primary Care Physician Encounter [facility] [place] Date(s): 10/20/21 - 11/19/21 [facility] Oncology [address] [place] [address]- Allergies, Adverse Reactions, Alerts Substance Reaction Severity Status amoxicillin itch Active Immunizations Given and Recorded Vaccine Date Status Refusal Reason influenza virus vaccine, inactivated 03/28/21 Recorded influenza virus vaccine, inactivated 02/11/20 Recorded SARS-CoV-2 (COVID-19) mRNA-1273 vaccine 02/25/21 Recorded SARS-CoV-2 (COVID-19) mRNA-1273 vaccine 05/22/20 Recorded SARS-CoV-2 (COVID-19) mRNA-1273 vaccine 04/24/20 Recorded Medications ALPRAZolam 0.25 mg oral tablet 0.25 mg, 1, tablet, By Mouth, Daily, given by the psychiatrist - Dr Gloria Mandel, Refills 0, Maintenance, 12/08/20 13:39:00 EDT, Partial fill upon patient request if the prescription is for a schedule II opioid drug. Start Date: 12/08/20 Status: Orderedbudesonide 6 mg oral capsule, extended release 1 capsule = 6 mg, By Mouth, Daily in AM, 0 Refills, Maintenance, 10/20/21 8:38:00 EDT, Partial fill upon patient request if the prescription is for a schedule II opioid drug. Start Date: 10/20/21 Status: OrderedGaviscon 3 times a day after meals and bedtime, 0 Refills, Maintenance, 07/31/20 8:24:00 EDT, Partial fill upon patient request if the prescription is for a schedule II opioid drug. Start Date: 07/31/20 Status: OrderedLexapro 20 mg oral tablet 1 tablet = 20 mg, By Mouth, Daily, # 90 tablet, 1 Refills, Maintenance, 12/01/20 13:57:00 EDT, [facility], 173, cm, 08/26/20 11:35:00 EDT, Height, 62.7, kg, 07/09/20 6:57:00 EDT, Dry Weight Start Date: 12/01/20 Stop Date: 05/30/21 Status: Orderedomeprazole 20 mg oral enteric coated capsule 1 capsule = 20 mg, By Mouth, Daily, # 90 capsule, 0 Refills, Maintenance, 04/13/13 13:51:08, EC Capsule Start Date: 04/13/13 Status: OrderedXanax 0.25 mg oral tablet 0.25 mg, 1, tablet, By Mouth, Every 8 hours, Refills 0, Maintenance, 10/20/21 8:32:00 EDT, Partial fill upon patient request if the prescription is for a schedule II opioid drug. Start Date: 10/20/21 Status: Ordered Problem List Condition Effective Dates Status Health Status Informant Basal cell carcinoma (BCC) of Active antihelix of right ear(Confirmed) Pulmonary fibrosis(Confirmed) Active Ovarian mass, left(Confirmed) Active Underweight(Confirmed) Active Social History Social History Type Response Smoking Status Former smoker; Other: stoppe d 45 years ago; entered on: 04/23/14 Sex Care Team PersonnelName: Rizwana Tripp MD Address: [address] [place] [address] [address]
--- OUTSIDE RECORDS SUMMARY | 2021-12-16 13:55 | XMS_ITS | Continuity of Care Document ---
:1940 Author Organization [facility] Address [address] [place] [phone]- Care Team Providers Name Role Phone Rizwana Tripp MD Primary Care Physician [place] [facility] [place] 07[place]/20 [facility] [address] [place] [address]- Allergies, Adverse Reactions, Alerts Substance Reaction Severity Status amoxicillin itch Active Medications aspirin 81 mg oral delayed release tablet 81 mg, 1, tablet, By Mouth, Daily, Refills 0, Maintenance, 06/30/20 14:03:00 EDT, Partial fill upon patient request if the prescription is for a schedule II opioid drug. Start Date: 06/30/20 Status: OrderedGaviscon 3 times a day after meals and bedtime, 0 Refills, Maintenance, 07/31/20 8:24:00 EDT, Partial fill upon patient request if the prescription is for a schedule II opioid drug. Start Date: 07/31/20 Status: Orderedmetoprolol 25 mg oral tablet, extended release 25 mg, 1, tablet, By Mouth, Daily, # 90 tablet, Refills 3, Tot. Refills 3, Maintenance, 06/30/20 14:34:00 EDT, Route to Pharmacy Electronically, [facility], Partial fill upon patient request ifthe prescription is for a schedule II opioid drug... Start Date: 06/30/20 Stop Date: 06/25/21 Status: Orderedomeprazole 20 mg oral enteric coated capsule 1 capsule = 20 mg, By Mouth, Daily, # 90 capsule, 0 Refills, Maintenance, 04/13/13 13:51:08, EC Capsule Start Date: 04/13/13 Status: Ordered Social History Social History Type Response Smoking Status Former smoker; Other: stoppe d 45 years ago; entered on: 04/23/14 Sex
--- OUTSIDE RECORDS SUMMARY | 2021-12-16 13:55 | XMS_ITS | Continuity of Care Document ---
:1940 Author Organization [facility] Oncology Address [address] [place] [address]- Care Team Providers Name Role Phone Rizwana Tripp MD Primary Care Physician Encounter [facility] [place] Date(s): 10/20/21 - 11/19/21 [facility] Oncology [address] [place] [id number] Attending Physician: Clive Trinh Admitting Physician: AdmtrClive Referring Physician: Admtr, ArCas Allergies, Adverse Reactions, Alerts Substance Reaction Severity [...] Care Team PersonnelName: Rizwana Tripp MD Address: [address] [place] [address]
--- OUTSIDE RECORDS SUMMARY | 2021-12-16 13:55 | XMS_ITS ---
:1940 Author Care Team Providers Name Role Phone RUSTY STANLEY MD Primary Care Provider [phone] Allergies Code Code System Name Reaction Severity Status Onset 723 RxNorm Amoxicillin ? ? Active ? Medications Name Status Start Date Stop Date ? ? Lexapro Active ? Not available omeprazole Active ? Not available prednisone 10 mg tablet Active ? Not avai lable take 40mg po qd x 3 days, then 30mg po qd x 2 days, then 20mg po qd x 2 days then 10mg po qd x 2 days Xanax Active ? Not available Problems None recorded. Procedures None recorded. Results Lab Results None recorded. Past Encounters 10/29/2020 Acute Urticaria [facility]DE[facility] Traylor: [address], [place] [address], Ph. Social History None recorded. Vaccine List None recorded. Plan of Care Reminders Provider Appointments None recorded. ? ? Lab None recorded. ? ? Referral None recorded. ? ? Procedures None recorded. ? ? Surgeries None recorded. ? ? Imaging None recorded. ? ? Vitals Blood Pressure 137/83 mm[Hg]
--- OUTSIDE RECORDS SUMMARY | 2021-12-16 13:55 | XMS_ITS | Continuity of Care Document ---
:1940 Author Organization [facility] Address [address] [place] [address]- Care Team Providers Name Role Phone Rizwana Tripp MD Primary Care Physician Encounter [facility] [place] Date(s): 07/31/20 - 08/30/20 [facility] [address] [place] [address]- Attending Physician: Admberta, Clive Admitting Physician: Admtr, Fabian8 Referring Physician: Admtr, Ar8 Allergies, Adverse Reactions, Alerts Substance Reaction Severity Status amoxicillin itch Active Immunizations Given and Recorded Vaccine Date Status Refusal Reason SARS-CoV-2 (COVID-19) mRNA-1273 vaccine 05/22/20 Recorded SARS-CoV-2 (COVID-19) mRNA-1273 vaccine 04/24/20 Recorded influenza virus vaccine, inactivated 02/11/20 Recorded Medications Gaviscon 3 times a day after meals and bedtime, 0 Refills, Maintenance, 07/31/20 8:24:00 EDT, Partial fill upon patient request if the prescription is for a schedule II opioid drug. Start Date: 07/31/20 Status: Orderedomeprazole 20 mg oral enteric coated capsule 1 capsule = 20 mg, By Mouth, Daily, # 90 capsule, 0 Refills, Maintenance, 04/13/13 13:51:08, EC Capsule Start Date: 04/13/13 Status: Ordered Social History Social History Type Response Smoking Status Former smoker; Other: stoppe d 45 years ago; entered on: 04/23/14 Sex
--- OUTSIDE RECORDS SUMMARY | 2021-12-16 13:55 | XMS_ITS | Continuity of Care Document ---
:1940 Author Organization [facility] Address [address] [address]- Care Team Providers Name Role Phone Rizwana Tripp MD Primary Care Physician [place] [facility] [place] 07[place]26/20 [facility] [address] [phone]- Allergies, Adverse Reactions, Alerts Substance Reaction Severity Status amoxicillin itch Active Medications aspirin 81 mg oral delayed release tablet 81 mg, 1, tablet, By Mouth, Daily, Refills 0, Maintenance, 06/30/20 14:03:00 EDT, Partial fill upon patient request if the prescription is for a schedule II opioid drug. Start Date: 06/30/20 Status: Orderedmetoprolol 25 mg oral tablet, extended release 25 mg, 1, tablet, By Mouth, Daily, # 90 tablet, Refills 3, Tot. Refills 3, Maintenance, 06/30/20 14:34:00 EDT, Route to Pharmacy Electronically, [facility], Partial fill upon patient request [...]
--- OUTSIDE RECORDS SUMMARY | 2021-12-16 13:55 | XMS_ITS | Continuity of Care Document ---
:1940 [facility] Address [address] [place] [address], [address] [place] [address]- Care Team Providers Name Role Phone Qasim SNOWDEN, Rizwana Primary Care Physician Encounter [facility] [place] Date(s): 09/30/21 - 10/30/21 [facility] [address] [place] [address]- Allergies, Adverse Reactions, Alerts Substance Reaction Severity Status amoxicillin itch Active Immunizations Given and Recorded Vaccine Date Status Refusal Reason influenza virus vaccine, inactivated 03/28/21 Recorded influenza virus vaccine, inactivated 02/11/20 Recorded SARS-CoV-2 (COVID-19) mRNA-1273 vaccine 02/25/21 Recorded SARS-CoV-2 (COVID-19) mRNA-1273 vaccine 05/22/20 Recorded SARS-CoV-2 (COVID-19) mRNA-1273 vaccine 04/24/20 Recorded Medications budesonide 6 mg oral capsule, extended release 1 [...]
--- OUTSIDE RECORDS SUMMARY | 2021-12-16 13:55 | XMS_ITS | Continuity of Care Document ---
:1940 Author Organization [facility] On[facility] Address [address] [place] [address]- Care Team Providers Name Role Phone Rizwana Tripp MD Primary Care Physician [place] [facility] [place] 11[place]06/21 [facility] On[facility] [address] [place] [address]- Allergies, Adverse Reactions, Alerts Substance Reaction Severity [...]
--- OUTSIDE RECORDS SUMMARY | 2021-12-16 13:55 | XMS_ITS | Continuity of Care Document ---
:1940 Author Organization [facility] Address [address] [place] [address]- Care Team Providers Name Role Phone Rizwana Tripp MD Primary Care Physician Encounter [facility] [place] Date(s): 09/01/21 - 10/01/21 [facility] [address] [place] [address]- Allergies, Adverse Reactions, Alerts Substance Reaction Severity [...] EC Capsule Start Date: 04/13/13 Status: Ordered Problem List Condition Effective Dates Status Health Status Informant Basal cell carcinoma (BCC) of Active antihelix of right ear(Confirmed) Social History Social History Type Response Smoking Status Former smoker; Other: stoppe d 45 years ago; entered on: 04/23/14 Sex
--- OUTSIDE RECORDS SUMMARY | 2021-12-16 13:55 | XMS_ITS | Continuity of Care Document ---
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
--- OUTSIDE RECORDS SUMMARY | 2021-12-16 13:55 | XMS_ITS | Continuity of Care Document ---
:1940 Author Organization [facility] Address [address] [place] [address]- Care Team Providers Name Role Phone Rizwana Tripp MD Primary Care Physician [place] [facility] [place] 07/[place]/[address] [address] Discharge Disposition: A-D/C Home Attending Physician: Teja Garcia MD Admitting Physician: Teja Garcia MD Referring Physician: Teja Garcia MD Allergies, Adverse Reactions, Alerts Substance Reaction Severity [...] 06/30/20 14:34:00 EDT, Route to Pharmacy Electronically, [email or web address], Partial fill upon patient request ifthe prescription is for a schedule II opioid drug... Start Date: 06/30/20 Stop Date: 06/25/21 Status: Orderedomeprazole 20 mg oral enteric coated capsule 1 capsule = 20 mg, By Mouth, Daily, # 90 capsule, 0 Refills, Maintenance, 04/13/13 13:51:08, EC Capsule Start Date: 04/13/13 Status: Ordered Vital Signs Most recent to oldest [Reference Range]: 1 2 Height 173 cm 173 cm (07/09/20 6:26 AM) (07/09/20 6:26 AM) Weight 62.7 kg 62.7 kg (07/09/20 6:26 AM) (07/09/20 6:26 AM) Oxygen Saturation [94-100 %] 99 % (07/09/20 6 AM) Pulse Rate [55-90 bpm] 59 bpm (07/09/20 6:26 AM) Body Mass Index [18.5-24.99] 20.95 (07/09/20 6 AM) Blood Pressure [90-138/55-84 mm Hg] 158/68 mm Hg *H* (07/09/20 6:26 AM) Respiratory Rate [16-30 br/min] 20 br/min 19 br/mi n (07/09/20 6:56 AM) (07/09/20 6: AM) Temperature [96.8-100.4 DegF] 97.3 DegF (07/09/20 6:26 AM) Mode of Delivery (Oxygen) Room air (07/09/20 6:26 AM) Blood pressure sites Arm, left (07/09/20 6:26 AM) Temperature Route Temporal (07/09/20 6:26 AM) Dry Weight 62.7 kg 62.7 kg (07/09/20 6:26 AM) (07/09/20 6:26 AM) Social History Social History Type Response Smoking Status Former smoker; Other: stoppe d 45 years ago; entered on: 04/23/14 Sex
--- OUTSIDE RECORDS SUMMARY | 2021-12-16 13:55 | XMS_ITS | Continuity of Care Document ---
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
--- OUTSIDE RECORDS SUMMARY | 2021-12-16 13:55 | XMS_ITS | Continuity of Care Document ---
:1940 Author Organization [facility] Address [address] [place] [address]- Care Team Providers Name Role Phone Qasim SNOWDEN, Rizwana Primary Care Physician Encounter [facility] [place] Date(s): 06/26/20 - 07/26/20 [facility] [address] [place] [address]- Allergies, Adverse Reactions, Alerts Substance Reaction Severity [...] 06/30/20 14:34:00 EDT, Route to Pharmacy Electronically, [facility], Partial fill upon patient request [...]
== END 2021-12-03 14:57 | disposition home or self-care (01) | DRG 281 ==
PROVIDERS: Hospitalist; Admitting Provider Family Medicine; PCP Internal Medicine; Visit Provider Hospitalist
DX: I51.81 Takotsubo syndrome (principal); I21.4 Non-ST elevation (NSTEMI) myocardial infarction; E44.1 Mild protein-calorie malnutrition; N39.0 Urinary tract infection, site not specified; Z68.1 Body mass index [BMI] 19.9 or less, adult; B96.1 Klebsiella pneumoniae [K. pneumoniae] as the cause of diseases classified elsewhere; I95.1 Orthostatic hypotension; E86.1 Hypovolemia; F41.9 Anxiety disorder, unspecified; F32.9 Major depressive disorder, single episode, unspecified; Z88.0 Allergy status to penicillin; Z79.82 Long term (current) use of aspirin; Z79.899 Other long term (current) drug therapy
CPT/HCPCS: 36415; 80048; 82947; 83516; 84484; 85027; 85610; 85730; 86340; 93005; 93306; Q9957

== ENCOUNTER → 2021-12-14 07:25 | Outpatient (REF) | payer MEDICARE, SELFPAY ==
--- NOTE | 2021-12-14 07:28 | CA_ITS ---
Transthoracic Echocardiogram Patient (Last, First, Middle): Deepa Beavers, Gender: Female Date of : 1940 Age: 81 Procedure Date: 12/14/2021 Procedure Type: Transthoracic Echocardiogram Location: OP Height: 170.18 cm Weight: 52.16 kg BSA: 1.60 m2 Heart Rate: 60 bpm BP: 124 / 68 mmHg Lead Application Architect: BRAD Referring MD: Johnathon Thrasher MD Symptoms: I42.9 - Cardiomyopathy, unspecified Study Quality: Adequate w contrast ECG Rhythm: Sinus Conclusions: - The visually estimated ejection fraction is between 60-65%. There is no evidence of regional wall motion abnormalities. Findings Procedure Information Contrast agent, definity, is being given per protocol without apparent complications. Left Ventricle Normal left ventricular cavity size. The left ventricular systolic function is normal. The visually estimated ejection fraction is between 60-65%. There is no evidence of regional wall motion abnormalities. Right Ventricle Mildly increased right ventricular cavity size. Prior Study Comparison Changes noted compared to prior study dated: 12/01/2021. Improved LVEF/wall motion. Measurements 2D Linear Measurements LVIDd: 4.60 3.9-5.3/4.2-5.9 cm LVIDd Index: 2.88 2.4-3.2/2.2-3.1 cm/m2 LVIDs: 2.68 2.0-3.6 cm 2D Systolic Function EF 4C: 79.90 >55% EF 2C: 66.40 >55% EF BiP: 74.40 >55% Mitral Valve MV Pk E: 1.18 MV PK A: 0.96 MV Decel Time: 230.00 E/A: 1.20 E'Lateral: 9.46 E'Medial: 6.85 E/E' Med: 17.20 E/E' Lat: 12.50 PHT: 67.00 MVA PHT: 3.28 Decel [place]: 5.13 Diastolic Function MV Pk E: 1.18 MV Pk A: 0.96 E/A: 1.20 E'Medial: 6.85 E/E' Med: 17.20 E' Laterial: 9.46 E/E' Lat: 12.50 Right Ventricle TAPSE (mm): 30.40 TVS' Jeffery: 18.00 Tricuspid Valve TR Pk Jeffery: 2.81 TR Pk Grad: 32.00 RA Press: 8.00 RVSP: 40.00 Pulmonary Veins Pulm Vein S/D 1.20 Updated in Other Vendor System with Status of Final Sebastien Mandujano MD electronically signed on 12/15/2021 5:18:17 PM with status of Final
== END ==
LOC: HO.CARD 07:25
PROVIDERS: PCP Internal Medicine; Visit Provider Internal Medicine Cardiovascular Disease
DX: I42.9 Cardiomyopathy, unspecified (principal)
CPT/HCPCS: 93308; Q9957

== ENCOUNTER → 2022-01-20 11:06 | Outpatient (BNVA) | payer MEDICARE, SELFPAY | PROVIDERS: PCP Internal Medicine; Visit Provider Internal Medicine Cardiovascular Disease | DX: I51.81 Takotsubo syndrome (principal) | CPT/HCPCS: 99212 ==